=== PATIENT | male | born 1955 | race Caucasian/White ===

== ENCOUNTER → 2016-08-29 | Outpatient (CLI) | payer MEDICARE, OTHER ==
[~2016-08-29] MED LIST: AMANTADINE HCL100 M1 PO; ANAPROX DS550 MG PO; ATENOLOL25 MG PO; BREO ELLIPTA 11 EACH IH; CARBIDOPA/LEVOD1 TA1 PO; CLARITIN10 MG PO; COLACE100 MG PO; DAILY MULTIPLE1 TA6 PO; ESCITALOPRAM OX20 MG PO; GABAPENTIN TAB600 MG PO; HYDR12.5C PO; LISINOPRIL/HCTZ1 TA3 PO; LISINOPRIL20 MG PO; OLANZAPINE5 MG PO; OMEPRAZOLE MAGN20 MG PO; ONCE-DAILY WEL300 MG PO; PROAIR RESPICL90 MCG INH; SYMBICORT1 AE1 INH; VICODIN 5/500 505 MG PO; ZYPREXA5 M1 PO
[2016-08-29 08:40] LABS: BASO % 0.4 % (0.0-1.0); EOS # 0.3 10*3/uL (0.0-0.4); EOS % 5.6 % (1.0-4.0); HEMATOCRIT 38.8 % (42.0-52.0); HEMOGLOBIN 12.3 g/dl (14.0-18.0); LYMPH # 1.2 10*3/uL (1.3-4.4); LYMPH % 24.2 % (27.0-41.0); MEAN CELL VOLUME 95.8 fl (80.0-94.0); MEAN CORPUSCULAR HGB 30.4 pg (27.0-31.0); MEAN CORPUSCULAR HGB CONC 31.7 g/dl (33.0-37.0); MEAN PLATELET VOLUME 11.3 fl (9.6-12.3); MONO # 0.6 10*3/uL (0.1-1.0); NEUT # 2.9 10*3/uL (2.3-7.9); NEUT % 58.2 % (47.0-73.0); PLATELET COUNT AUTOMATED 168 10*3/uL (130-400); RED BLOOD COUNT 4.05 10*6/uL (4.50-5.90); RED CELL DISTRI WIDTH 13.9 % (0-14.5)
[2016-08-29 09:20] LABS: ALBUMIN 3.7 gm/dl (3.1-4.5); BILIRUBIN, TOTAL 0.3 mg/dl (0.2-1.0); POTASSIUM 4.1 mmol/L (3.5-5.1); TOTAL PROTEIN 6.9 gm/dL (6.4-8.2)
[2016-08-29 09:39] LABS: HEMOGLOBIN A1c 5.8 % (4.8-5.6)
[2016-08-29 10:24] LABS: FOLIC ACID 21.89 ng/mL (>5.38)
[2016-08-30 06:12] LABS: TOTAL PROTEIN, SERUM 6.3 g/dL (6.0-8.5)
[2016-08-30 15:10] LABS: A/G RATIO 1.6 (0.7-1.7); ALBUMIN 3.9 g/dL (2.9-4.4); ALPHA-1-GLOBULIN 0.2 g/dL (0.0-0.4); BETA GLOBULIN 0.8 g/dL (0.7-1.3); GAMMA GLOBULIN 0.7 g/dL (0.4-1.8); GLOBULIN, TOTAL 2.4 g/dL (2.2-3.9); M-SPIKE Not Observed g/dL (Not Observed)
== END | disposition home or self-care (01) ==
LOC: LAB 08:00
PROVIDERS: Psychiatry & Neurology Neurology
DX: R20.9 Unspecified disturbances of skin sensation (principal); Z79.899 Other long term (current) drug therapy

== ENCOUNTER → 2017-01-21 | Day surgery (SDC) | payer MEDICARE, OTHER ==
[~2017-01-21] VITALS: Ht 182.8 cm; Wt 149.7 kg
[~2017-01-21] MED LIST changes: +FLOMAX0.4 MG PO
[2017-01-21 07:50] VITALS: BP 151/92
[2017-01-21 09:02] VITALS: BP 118/64
[2017-01-21 09:17] VITALS: BP 165/68
[2017-01-21 09:32] VITALS: BP 164/54
== END | disposition home or self-care (01) ==
LOC: SDC 01-18 09:30
DX: Z12.11 Encounter for screening for malignant neoplasm of colon (principal); K64.8 Other hemorrhoids; K57.30 Diverticulosis of large intestine without perforation or abscess without bleeding; K63.89 Other specified diseases of intestine; I10 Essential (primary) hypertension; E78.00 Pure hypercholesterolemia, unspecified; G20 Parkinson's disease; R26.81 Unsteadiness on feet; N17.9 Acute kidney failure, unspecified; M62.82 Rhabdomyolysis; E66.9 Obesity, unspecified; I25.2 Old myocardial infarction; F32.9 Major depressive disorder, single episode, unspecified; G47.30 Sleep apnea, unspecified; K21.9 Gastro-esophageal reflux disease without esophagitis; Z96.643 Presence of artificial hip joint, bilateral; Z87.891 Personal history of nicotine dependence; Z79.899 Other long term (current) drug therapy; Z88.8 Allergy status to other drugs, medicaments and biological substances; Z82.49 Family history of ischemic heart disease and other diseases of the circulatory system; Z83.3 Family history of diabetes mellitus; Z96.0 Presence of urogenital implants; Z98.890 Other specified postprocedural states
CPT/HCPCS: 00810; G0121

== ENCOUNTER 2017-04-21 03:47 | Emergency (ER) | payer MEDICARE, OTHER ==
[2017-04-21] VITALS (7 sets, daily range): BP systolic 107–141; BP diastolic 53–83
[~2017-04-21] VITALS: Ht 182.8 cm; Wt 149.7 kg
--- NOTE | ~2017-04-21 | EKG ---
[place], [place] ELECTROCARDIOGRAM REPORT NAME: STEPHEN MORILLO UNIT #: [id number] ROOM: DOCTOR: ADALI LEIGH,FRANCE BIRTHDATE: [birth year] DOS: 04/21/2017 TIME: 0440 hours. IMPRESSION: 1. Sinus rhythm. 2. Nonspecific intraventricular conduction delay. 3. Normal QT interval. 4. No ischemic changes. FRANCE BRO MD CM:EKGRPT:ELECTROCARDIOGRAM REPORT [id number] FRANCE BRO MD
[2017-04-21 04:45] LABS: BASO % 0.3 % (0.0-1.0); EOS # 0.2 10*3/uL (0.0-0.4); EOS % 1.5 % (1.0-4.0); HEMATOCRIT 36.9 % (42.0-52.0); HEMOGLOBIN 11.7 g/dl (14.0-18.0); LYMPH # 1.5 10*3/uL (1.3-4.4); LYMPH % 13.6 % (27.0-41.0); MEAN CELL VOLUME 97.1 fl (80.0-94.0); MEAN CORPUSCULAR HGB 30.8 pg (27.0-31.0); MEAN CORPUSCULAR HGB CONC 31.7 g/dl (33.0-37.0); MEAN PLATELET VOLUME 11.3 fl (9.6-12.3); MONO # 1.4 10*3/uL (0.1-1.0); MONO % 12.4 % (3.0-9.0); NEUT # 7.9 10*3/uL (2.3-7.9); NEUT % 71.7 % (47.0-73.0); PLATELET COUNT AUTOMATED 158 10*3/uL (130-400); RED CELL DISTRI WIDTH 13.5 % (0-14.5)
[2017-04-21 04:55] LABS: ACT PARTIAL THROMBO TIME 25.1 SECONDS (20.8-31.5)
[2017-04-21 05:02] LABS: ALBUMIN 3.9 gm/dl (3.1-4.5); ALKALINE PHOSPHATASE 86 U/L (45-117); BUN 92 mg/dl (7-24); CHLORIDE 107 mmol/L (98-107); CREATININE 6.22 mg/dL (0.70-1.30); POTASSIUM 5.8 mmol/L (3.5-5.1); SGOT/AST 26 IU/L (3-35); SGPT/ALT 12 U/L (12-78); SODIUM 139 mmol/L (136-145); TOTAL PROTEIN 6.9 gm/dL (6.4-8.2)
[2017-04-21 05:08] LABS: TROPONIN I < 0.015 ng/ml (<0.045)
--- NOTE | 2017-04-21 06:35 | NUR ---
CAIO COVARRUBIAS CONTACTED THIS FACILITY TO ADVISE PT WILL BE GOING TO [address]. CONTACT NUMBER [phone]
--- NOTE | 2017-04-21 06:52 | NUR ---
REPORT GIVEN TO BRITT CONNELL [facility].
--- NOTE | 2017-04-21 06:53 | NUR ---
REGIS [place] CELL [phone] HOME PHONE [phone]
[2017-04-21 07:15] LABS: ABG HCO3 18.8 mmol/l (22-26); ABG O2 SATURATION 98.6 % (95-97); ARTERIAL BLOOD GAS PCO2 50.8 mmHg (35-45)
[2017-04-21 07:22] LABS: ABG BASE EXCESS -9.2 mmol/L (-2.0-2.0)
[2017-04-21 07:23] LABS: ARTERIAL BLOOD GAS PH 7.192 (7.35-7.45)
--- NOTE | 2017-04-21 07:24 | NUR ---
CRITICAL LAB RECEIVED. DR BERRY NOTIFIED. CARYL SALES NOTIFIED.
--- NOTE | 2017-04-21 07:26 | NUR ---
REPORT FROM Romie SUAREZ RN. PATIENT IN ROOM AT THIS TIME IN NO DISTRESS ON BI-PAP. SETTINGS 11/12 BACKUP 12 100%. RESPIRATORY CONTACTED FOR TITRATION OF O2 AFTER BLOOD GAS RESULTS.
--- NOTE | 2017-04-21 08:05 | NUR ---
OCL SPLINT PLACED LEFT ANKLE SUGAR TONG. PULSES/MOTOR/SENSORY INTACT POST PROCEEDURE BY DR. NICHOLS.
[2017-04-21 08:21] LABS: BILIRUBIN 2+ (NEGATIVE); BLOOD TRACE-INTACT (NEGATIVE); CLARITY SL CLOUDY (CLEAR); COLOR YELLOW (YELLOW); GLUCOSE NEGATIVE (NEGATIVE); KETONE TRACE (NEGATIVE); LEUKO ESTERASE 1+ (NEGATIVE); NITRITE POSITIVE (NEGATIVE); SPECIFIC GRAVITY 1.025 (1.005-1.030); UROBILINOGEN 0.2 E.U./dl (0.2-1.0)
--- NOTE | 2017-04-21 08:25 | NUR ---
PATIENT AND PATIENTS ADVISE THAT HE DOES NOT WANT INTUBATED. THE PATIENT IS ORIENTED TO PERSON, PLACE, AND GENERAL TIME.
[2017-04-21 08:28] LABS: BACTERIA 3+; WBC 21-30 wbc/hpf (0-5)
--- NOTE | 2017-04-21 08:46 | NUR ---
RESPIRATORY CONTACT IN REGARD TO BIPAP SETTING CHANGES. DR. NICHOLS AT THIS TIME CHANGES SETTINGS PER DIRECTION/REQUEST OF DR. RICO AT [facility]. AWAITING [facility] BED. CONTACTED [facility] FOR TRANSPORT. SETTINGS CHANGED TO 20/10 RATE 20, 40%
--- NOTE | 2017-04-21 09:00 | NUR ---
SPOKE WITH BIRD FROM [facility]. ETA 1 HOUR. TO BE TRANSFERRED TO [facility] ICU BED [id number].
--- NOTE | 2017-04-21 09:20 | NUR ---
PATIENT ADJUSTED IN BED/TURNED ONTO RIGHT SIDE PER REQUEST. GIVEN SIP OF WATER.
[2017-04-21 09:21] LABS: CREATININE 5.52 mg/dL (0.70-1.30); POTASSIUM 5.7 mmol/L (3.5-5.1)
--- NOTE | 2017-04-21 10:25 | NUR ---
Transfer Out, from the Emergency Department - Stable This patient, STEPHEN MORILLO, 61, 53, [id number], [id number], was examined by the Emergency Department physician, Dr. SIMONE LEIGH,RIKI and efforts were made to stabilize the patient. The patient's condition is stable. The reason for transfer is need higher level of care . The Emergency physician has made the decision to transfer the patient out. Refer to the ED physician's dictation for the family/back-up physician notified. The attending physician has spoken to the accepting physician at the receiving facility, DR. RICO . Refer to the ED physician's dictation. The receiving facility has space and qualified personnel to care for the patient, and has agreed to accept the patient. Proper equipment and trained personnel have been arranged. The mode of transport is ground. The agency is OTHER - SEE PATIENT NOTES. The Emergency physician has spoken to the transport staff re: patient's condition and needs during transport. Copies of the medical record have been forwarded to the receiving facility, including: - Emergency Department record: - name, address, hospital number, age, next of kin - presenting problem - history of injury, past medical history - treatment, medications & route, fluid type & volume - lab and xray findings, films - physical findings - vitals signs -- prehospital, emergency, pre-transfer - preliminary diagnosis - status/condition - emergency medical services record - consent for transfer - authorization for record release - name of any involed physicians -- responsive or not - name and address of referring physician - name of contact physician at receiving facility - name of accepting physician at receiving facility Nursing report has been given to [facility] IN [facility]U . Valuables include CLOTHING. and were given to . MARQUIS PALOMO
== END 2017-04-21 10:28 | disposition short-term general hospital (02) ==
LOC: ED 03:47 → EDHOLD 05:15 → ED 05:15 → EDHOLD 05:21 → ICCU 05:21 → ED 10:28
PROVIDERS: Emergency Medicine; Student in an Organized Health Care Education/Training Program
DX: S82.832A Other fracture of upper and lower end of left fibula, initial encounter for closed fracture (principal); I10 Essential (primary) hypertension; K21.9 Gastro-esophageal reflux disease without esophagitis; I25.2 Old myocardial infarction; G20 Parkinson's disease; Z68.41 Body mass index [BMI] 40.0-44.9, adult; G47.30 Sleep apnea, unspecified; N17.9 Acute kidney failure, unspecified; F10.10 Alcohol abuse, uncomplicated; E87.5 Hyperkalemia; N17.0 Acute kidney failure with tubular necrosis; J44.1 Chronic obstructive pulmonary disease with (acute) exacerbation; J96.90 Respiratory failure, unspecified, unspecified whether with hypoxia or hypercapnia; F32.9 Major depressive disorder, single episode, unspecified; Z88.8 Allergy status to other drugs, medicaments and biological substances; Z79.899 Other long term (current) drug therapy; W18.39XA Other fall on same level, initial encounter; Y93.89 Activity, other specified; Y92.002 Bathroom of unspecified non-institutional (private) residence as the place of occurrence of the external cause; Y99.8 Other external cause status

== ENCOUNTER 2017-08-09 14:00 | Inpatient (IN) | payer MEDICARE, OTHER ==
[~2017-08-09] VITALS: Ht 182.8 cm; Wt 138.4 kg
[2017-08-09 14:18] VITALS: BP 117/66
[2017-08-09 15:21] LABS: BASO % 0.6 % (0.0-1.0); EOS # 0.2 10*3/uL (0.0-0.4); EOS % 3.6 % (1.0-4.0); HEMATOCRIT 42.5 % (42.0-52.0); HEMOGLOBIN 13.2 g/dl (14.0-18.0); LYMPH # 1.6 10*3/uL (1.3-4.4); LYMPH % 26.2 % (27.0-41.0); MEAN CELL VOLUME 91.6 fl (80.0-94.0); MEAN CORPUSCULAR HGB 28.4 pg (27.0-31.0); MEAN CORPUSCULAR HGB CONC 31.1 g/dl (33.0-37.0); MONO # 0.8 10*3/uL (0.1-1.0); MONO % 13.3 % (3.0-9.0); NEUT # 3.5 10*3/uL (2.3-7.9); PLATELET COUNT AUTOMATED 176 10*3/uL (130-400); RED BLOOD COUNT 4.64 10*6/uL (4.50-5.90); RED CELL DISTRI WIDTH 14.6 % (0-14.5); WHITE BLOOD COUNT 6.2 10*3/uL (4.8-10.8)
[2017-08-09 15:35] LABS: ACT PARTIAL THROMBO TIME 26.3 SECONDS (20.8-31.5)
[2017-08-09 15:39] LABS: ALBUMIN 3.7 gm/dl (3.1-4.5); ALKALINE PHOSPHATASE 71 U/L (45-117); BUN 12 mg/dl (7-24); CHLORIDE 108 mmol/L (98-107); LIPASE 103 U/L (73-393); POTASSIUM 3.7 mmol/L (3.5-5.1); SGOT/AST 14 IU/L (3-35); SGPT/ALT 12 U/L (12-78); SODIUM 143 mmol/L (136-145); TOTAL PROTEIN 6.9 gm/dL (6.4-8.2)
[2017-08-09 15:44] LABS: TROPONIN I < 0.015 ng/ml (<0.045)
[2017-08-09 16:25] VITALS: BP 117/66
[2017-08-09 16:41] LABS: BILIRUBIN 2+ (NEGATIVE); BLOOD NEGATIVE (NEGATIVE); CLARITY CLEAR (CLEAR); COLOR YELLOW (YELLOW); GLUCOSE NEGATIVE (NEGATIVE); KETONE NEGATIVE (NEGATIVE); LEUKO ESTERASE 1+ (NEGATIVE); NITRITE POSITIVE (NEGATIVE); UROBILINOGEN 0.2 E.U./dl (0.2-1.0)
[2017-08-09 16:50] LABS: URINE AMPHETAMINES < 1000 (1000ng/ml); URINE BARBITURATES < 200 (200ng/ml); URINE BENZODIAZEPINES < 200 (200ng/ml); URINE CANNABINOIDS (THC) < 50 (50ng/ml); URINE COCAINE < 300 (300ng/ml); URINE METHADONE < 300 (300ng/ml); URINE OPIATES < 300 (300ng/ml)
[2017-08-09 16:53] LABS: BACTERIA 2+; EPITHELIAL CELLS 15-20; WBC TNTC wbc/hpf (0-5)
[2017-08-09 16:54] LABS: URINE PHENCYCLIDINE < 25 (25ng/ml)
[2017-08-09 17:23] VITALS: BP 117/66
[2017-08-09 17:53] VITALS: BP 133/67
[2017-08-09 19:21] LABS: ABG BASE EXCESS 1.7 mmol/L (-2.0-2.0); ABG HCO3 25.9 mmol/l (22-26); ABG O2 SATURATION 93.8 % (95-97); ARTERIAL BLOOD GAS PCO2 40.1 mmHg (35-45); ARTERIAL BLOOD GAS PH 7.423 (7.35-7.45); ARTERIAL BLOOD GAS PO2 68.8 mmHg (80-90)
[2017-08-09] MEDS ORDERED: ELIQUIS5 M1 PO (19:36)
[2017-08-09] MEDS ORDERED: LIPITOR20 MG PO (19:37)
[2017-08-09] MEDS ORDERED: WELLBUTRIN XL300 MG PO (19:38)
[2017-08-09] MEDS ORDERED: SINEMET 25-1001 EACH PO (19:39)
[2017-08-09] MEDS ORDERED: ZYRTEC10 MG PO (19:39)
[2017-08-09] MEDS ORDERED: GABAPENTIN TAB600 MG PO (19:40)
[2017-08-09] MEDS ORDERED: APRESOLINE25 MG PO (19:41)
[2017-08-09] MEDS ORDERED: DUONEB 3 MG/3 ML3 M1 INH (19:41)
[2017-08-09] MEDS ORDERED: ZOFRAN4 MG PO (19:43)
[2017-08-09] MEDS ORDERED: PERCOCET 5-3251 EACH PO (19:44)
[2017-08-09] MEDS ORDERED: B-121000 MC1 PO (19:45)
[2017-08-09 20:00] VITALS: BP 128/72
[2017-08-10] VITALS: BP 160/65
[2017-08-10 05:45] LABS: BASO # 0.1 10*3/uL (0.0-0.1); BASO % 0.9 % (0.0-1.0); EOS # 0.3 10*3/uL (0.0-0.4); EOS % 4.8 % (1.0-4.0); HEMATOCRIT 39.4 % (42.0-52.0); HEMOGLOBIN 12.2 g/dl (14.0-18.0); LYMPH # 1.6 10*3/uL (1.3-4.4); LYMPH % 27.1 % (27.0-41.0); MEAN CELL VOLUME 91.4 fl (80.0-94.0); MEAN CORPUSCULAR HGB 28.3 pg (27.0-31.0); MEAN PLATELET VOLUME 10.9 fl (9.6-12.3); MONO # 0.7 10*3/uL (0.1-1.0); MONO % 11.7 % (3.0-9.0); NEUT # 3.2 10*3/uL (2.3-7.9); NEUT % 55.2 % (47.0-73.0); PLATELET COUNT AUTOMATED 156 10*3/uL (130-400); RED BLOOD COUNT 4.31 10*6/uL (4.50-5.90); RED CELL DISTRI WIDTH 14.4 % (0-14.5); WHITE BLOOD COUNT 5.8 10*3/uL (4.8-10.8)
[2017-08-10 06:10] LABS: BUN 10 mg/dl (7-24); CHLORIDE 112 mmol/L (98-107); CHOLESTEROL 107 mg/dL (<200); CREATININE 1.02 mg/dL (0.70-1.30); HDL CHOLESTEROL 24 mg/dl (40-60); LDL CHOLESTEROL 48 mg/dL (9-159); PHOSPHOROUS 3.5 mg/dL (2.5-4.9); POTASSIUM 3.6 mmol/L (3.5-5.1); SODIUM 147 mmol/L (136-145); TRIGLYCERIDES 173 mg/dl (<150); VLDL CHOLESTEROL 35 mg/dL (6-40)
[2017-08-10 06:17] LABS: THYROID STIM HORMONE (HS) 0.412 uIU/ml (0.358-4.75)
[2017-08-10 08:00] VITALS: BP 158/72
[2017-08-10] MEDS ORDERED: WELLBUTRIN XL300 MG PO (09:35)
[2017-08-10 12:00] VITALS: BP 147/80
[2017-08-10 16:00] VITALS: BP 158/70
[2017-08-10 20:00] VITALS: BP 146/60
[2017-08-11] VITALS: BP 140/64
[2017-08-11 08:00] VITALS: BP 140/64
[2017-08-11] MEDS ORDERED: KEFLEX500 M1 PO (10:44)
[2017-08-11] MEDS ORDERED: VITAMIN D-32000 UNI1 PO (10:44)
== END 2017-08-11 12:24 | disposition home or self-care (01) | DRG 871 ==
LOC: ED 14:00 → EDHOLD 17:07 → 4E 17:14
PROVIDERS: Physician Assistant; Student in an Organized Health Care Education/Training Program
DX: A41.9 Sepsis, unspecified organism (principal); G93.41 Metabolic encephalopathy; I82.411 Acute embolism and thrombosis of right femoral vein; E87.8 Other disorders of electrolyte and fluid balance, not elsewhere classified; E87.0 Hyperosmolality and hypernatremia; N39.0 Urinary tract infection, site not specified; Z68.41 Body mass index [BMI] 40.0-44.9, adult; I82.431 Acute embolism and thrombosis of right popliteal vein; I82.491 Acute embolism and thrombosis of other specified deep vein of right lower extremity; Z79.899 Other long term (current) drug therapy; G20 Parkinson's disease; F32.9 Major depressive disorder, single episode, unspecified; Z96.643 Presence of artificial hip joint, bilateral; K57.90 Diverticulosis of intestine, part unspecified, without perforation or abscess without bleeding; I10 Essential (primary) hypertension; K21.9 Gastro-esophageal reflux disease without esophagitis; M19.90 Unspecified osteoarthritis, unspecified site; E66.9 Obesity, unspecified; D72.810 Lymphocytopenia; E83.41 Hypermagnesemia; G47.30 Sleep apnea, unspecified; Z72.89 Other problems related to lifestyle; Z87.891 Personal history of nicotine dependence; Z88.9 Allergy status to unspecified drugs, medicaments and biological substances; I25.2 Old myocardial infarction; Z82.49 Family history of ischemic heart disease and other diseases of the circulatory system; Z83.3 Family history of diabetes mellitus; Z88.2 Allergy status to sulfonamides

== ENCOUNTER → 2017-09-24 | Outpatient (CLI) | payer MEDICARE, OTHER ==
[~2017-09-24] MED LIST changes: +APRESOLINE25 MG PO; +B-121000 MC1 PO; +DUONEB 3 MG/3 ML3 M1 INH; +ELIQUIS5 M1 PO; +KEFLEX500 M1 PO; +LIPITOR20 MG PO; +PERCOCET 5-3251 EACH PO; +SINEMET 25-1001 EACH PO; +VITAMIN D-32000 UNI1 PO; +WELLBUTRIN XL300 MG PO; +ZOFRAN4 MG PO; +ZYRTEC10 MG PO
== END | disposition home or self-care (01) ==
LOC: RAD 11:53
DX: M17.0 Bilateral primary osteoarthritis of knee (principal); W19.XXXA Unspecified fall, initial encounter; Y93.89 Activity, other specified; Y92.89 Other specified places as the place of occurrence of the external cause; Y99.8 Other external cause status

== ENCOUNTER → 2017-11-05 | Outpatient (CLI) | payer MEDICARE, OTHER | END | disposition home or self-care (01) | LOC: US 06:26 | DX: I82.431 Acute embolism and thrombosis of right popliteal vein (principal); R19.03 Right lower quadrant abdominal swelling, mass and lump; R06.02 Shortness of breath; R19.04 Left lower quadrant abdominal swelling, mass and lump ==

== ENCOUNTER → 2017-12-06 | Outpatient (CLI) | payer MEDICARE, OTHER | END | disposition home or self-care (01) | LOC: CARD 12-05 08:00 | DX: Z01.818 Encounter for other preprocedural examination (principal); R06.2 Wheezing; R06.02 Shortness of breath; G47.33 Obstructive sleep apnea (adult) (pediatric) ==

== ENCOUNTER 2018-08-13 22:27 | Inpatient (IN) | payer MEDICARE, OTHER ==
[~2018-08-13] VITALS: Ht 182.8 cm; Wt 151.0 kg
--- NOTE | ~2018-08-13 | EKG ---
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
[~2018-08-13 22:27] MED LIST changes: -LIPITOR20 MG PO; +ZOCOR40 MG PO
[2018-08-13 22:31] VITALS: BP 108/41
[2018-08-13 23:07] LABS: HEMATOCRIT 47.9 % (42.0-52.0); MEAN CELL VOLUME 90.7 fl (80.0-94.0); MEAN CORPUSCULAR HGB 28.4 pg (27.0-31.0); MEAN CORPUSCULAR HGB CONC 31.3 g/dl (33.0-37.0); MEAN PLATELET VOLUME 11.5 fl (9.6-12.3); PLATELET COUNT AUTOMATED 207 10*3/uL (130-400); RED BLOOD COUNT 5.28 10*6/uL (4.50-5.90); RED CELL DISTRI WIDTH 15.1 % (0-14.5); WHITE BLOOD COUNT 20.7 10*3/uL (4.8-10.8)
[2018-08-13 23:24] LABS: ALBUMIN 3.6 gm/dl (3.1-4.5); CREATININE 2.1 mg/dL (0.70-1.30); POTASSIUM 4.3 mmol/L (3.5-5.1); TOTAL PROTEIN 7.6 gm/dL (6.4-8.2)
[2018-08-13 23:40] LABS: PLATELET SUFFICIENCY NORMAL (NORMAL); TOTAL CELLS COUNTED 100 #CELLS
--- NOTE | 2018-08-13 23:40 | NUR ---
PATIENT INCONTINENT OF STOOL AND URINE. SHEETS CHANGED, PATIENT WASHED, INCONTINENCE PAD PLACED. PATIENT TOLERATED WELL. BED IN LOW POSITION, PATIENT INSTRUCTED TO USE CALL LIGHT FOR ASSISTANCE, SIDE RAILS UPX2, AT BEDSIDE.
--- NOTE | 2018-08-14 | NUR ---
Time: A 63 year old M admitted to 5E under services of DIAMOND WHEELER DO. Pt. arrived via bed from ER. Chief complaint: INCONTINENCE. CYNTHIA CLAYTON
[2018-08-14 00:35] VITALS: BP 112/72
[2018-08-14 00:48] LABS: BILIRUBIN 1+ (NEGATIVE); BLOOD 1+ (NEGATIVE); CLARITY CLOUDY (CLEAR); COLOR YELLOW (YELLOW); GLUCOSE NEGATIVE (NEGATIVE); KETONE TRACE (NEGATIVE); LEUKO ESTERASE 2+ (NEGATIVE); NITRITE NEGATIVE (NEGATIVE); PH 5.5 (5.0-9.0); SPECIFIC GRAVITY >= 1.030 (1.005-1.030)
[2018-08-14 00:56] LABS: BACTERIA 1+; RBC 16-20 rbc/hpf (0-2); WBC TNTC wbc/hpf (0-5)
[2018-08-14 01:00] VITALS: BP 123/62
--- NOTE | 2018-08-14 01:38 | NUR ---
[facility] CALLED RECCOMENDING PT TO RECIEVE 40MG LOVENOX INSTEAD OF THE ORDERED 30. REFUGIO BOWERS DR.
--- NOTE | 2018-08-14 01:38 | NUR ---
UNABLE TO COMPLETE MEDRX AT THIS TIME DUE LIST NOT BEING WITH PT OR FAMILY, AND PT OR FAMILY UNABLE TO REMEBER ALL MEDS AT THIS TIME. FAMILY STATES LIST WILL BE BROUGHT IN THE AM. WILL CONTINUE TO MONITOR PT
--- NOTE | 2018-08-14 02:00 | NUR ---
DISCUSSED MEDRX, PHARMACY DOSE OF LOVENOX, CODE STATUS. AND BLADDER SCANNING WITH DR. BELL. ORDERS ARE TO BLADDER SCAN PT ONCE. WILL ATTEMPT TO GET URINE SPECIMEN NEEDED. WILL CONTINUE TO MONITOR PT.
[2018-08-14 06:31] LABS: HEMATOCRIT 44.4 % (42.0-52.0); HEMOGLOBIN 13.8 g/dl (14.0-18.0); MEAN CORPUSCULAR HGB 28.3 pg (27.0-31.0); MEAN CORPUSCULAR HGB CONC 31.1 g/dl (33.0-37.0); MEAN PLATELET VOLUME 11.4 fl (9.6-12.3); PLATELET COUNT AUTOMATED 181 10*3/uL (130-400); RED BLOOD COUNT 4.88 10*6/uL (4.50-5.90); RED CELL DISTRI WIDTH 15.1 % (0-14.5); WHITE BLOOD COUNT 18.6 10*3/uL (4.8-10.8)
[2018-08-14 06:40] LABS: CREATININE 1.76 mg/dL (0.70-1.30); PHOSPHOROUS 3.2 mg/dL (2.5-4.9); POTASSIUM 4.1 mmol/L (3.5-5.1)
[2018-08-14 07:49] LABS: PLATELET SUFFICIENCY NORMAL (NORMAL); TOTAL CELLS COUNTED 100 #CELLS
[2018-08-14 08:00] VITALS: BP 119/61
--- NOTE | 2018-08-14 08:51 | NUR ---
STEPHEN MORILLO [id number] Please refer to the physician's history and physical for past medical history, comorbid conditions, and allergies. Diagnosis: ACUTE RENAL FAILURE Felice Score: , WOUND DESCRIPTIONS: Patient has intact scab areas located to right lower extremity. No drainage at time of assessment to right lower extremity. No redness surrounding are to right lower extremity. Patient has red blanchable area located to right hip a time of assessment patient stated these areas were from his fall in the shower at home. Surface the patient is resting on: Position Pro SKIN PREVENTION RECOMMENDATION: 1. Pressure redistribution support surface as appropriate 2. Elevate heels 3. Remove boots/TEDS every shift and reapply 4. Head of bed 30 degrees as tolerated 5. Assess nutrition and hydration 6. Manage moisture 7. Avoid the use of containment devices while in bed 8. Use absorptive products on surfaces limit layers of linens on bed 9. Turn and reposition every 1-2 hours in bed and every 1 hour in chair as tolerated 10. Weight shifts every 15 minutes while up in chair 11. Offloading with pillows or device to keep heels elevated off bed 12. Monitor skin at least every shift 13. Inspect under medical devices twice a day WOUND TREATMENT RECOMMENDATIONS: Cleanse ble's with soap and water pat area dry then apply aqauphor daily.
--- NOTE | 2018-08-14 09:28 | NUR ---
Patient is eating well and albumin is currently normal at 3.6. No PO supplement or nutriitonal intervention needed at this time. Will monitor. Dionna Rae U Dietetic Student
[2018-08-14] MEDS ORDERED: LYRICA100 M1 PO (09:40)
[2018-08-14] MEDS ORDERED: IRON325 M3 PO (09:42)
[2018-08-14] MEDS ORDERED: ZESTRIL20 MG PO (09:44)
[2018-08-14] MEDS ORDERED: PROPRANOLOL HCL60 M1 PO (09:45)
[2018-08-14] MEDS ORDERED: LODINE XL 400M400 MG PO (09:48)
[2018-08-14] MEDS ORDERED: LASIX20 MG PO (09:49)
[2018-08-14] MEDS ORDERED: KLOR-CON 1010 ME1 PO (09:50)
[2018-08-14] MEDS ORDERED: COLACE100 MG PO (09:52)
[2018-08-14] MEDS ORDERED: VALIUM5 MG PO (09:55)
[2018-08-14] MEDS ORDERED: COMTAN200 MG PO (09:55)
--- NOTE | 2018-08-14 09:59 | NUR ---
Med rec updated from list provided from pt . List placed in pt chart.
[2018-08-14 12:00] VITALS: BP 115/55
--- NOTE | 2018-08-14 13:23 | NUR ---
Patient pleasantly declined OT evaluation this date as he was very tired and was having difficulty breathing in supine. OTR will attempt at a later date. Milagros Bazan OTR/Zulma
--- NOTE | 2018-08-14 13:40 | NUR ---
Spoke with pt regarding comtan not available here and to bring in from home per pharmacy. She states she will bring it down.
--- NOTE | 2018-08-14 15:12 | NUR ---
PHYSICAL THERAPY Patient reqeusts no PT this date. Patient repots he is too ill at this time. Will attempt at a later date. Thank you for this referral. Belen Lindsay,PT
[2018-08-14 16:00] VITALS: BP 123/48
[2018-08-14 20:00] VITALS: BP 131/53
[2018-08-15] VITALS: BP 112/59
[2018-08-15 07:03] LABS: BASO % 0.4 % (0.0-1.0); EOS # 0.3 10*3/uL (0.0-0.4); HEMATOCRIT 43.8 % (42.0-52.0); HEMOGLOBIN 13.6 g/dl (14.0-18.0); LYMPH # 0.8 10*3/uL (1.3-4.4); LYMPH % 8.4 % (27.0-41.0); MEAN CORPUSCULAR HGB 28.6 pg (27.0-31.0); MEAN CORPUSCULAR HGB CONC 31.1 g/dl (33.0-37.0); MEAN PLATELET VOLUME 11.7 fl (9.6-12.3); MONO # 0.9 10*3/uL (0.1-1.0); NEUT # 7.1 10*3/uL (2.3-7.9); NEUT % 77.9 % (47.0-73.0); PLATELET COUNT AUTOMATED 155 10*3/uL (130-400); RED BLOOD COUNT 4.76 10*6/uL (4.50-5.90); RED CELL DISTRI WIDTH 14.8 % (0-14.5); WHITE BLOOD COUNT 9.1 10*3/uL (4.8-10.8)
[2018-08-15 07:21] LABS: BUN 23 mg/dl (7-24); CHLORIDE 110 mmol/L (98-107); POTASSIUM 3.8 mmol/L (3.5-5.1); SODIUM 140 mmol/L (136-145)
[2018-08-15 07:23] LABS: CREATININE 1.26 mg/dL (0.70-1.30)
[2018-08-15 08:00] VITALS: BP 119/57
--- NOTE | 2018-08-15 10:15 | NUR ---
PHYSICAL THERAPY Patient evaluated on 5, full evaluation to follow. Continue with PT as per plan of care with fall, MOD (a) X 1-2 acute debility precautions. Will require SNF BUT REFUSES. If home, recommend 24 hour family (A) and home health RN, PT, OT and aides. PAtient is high complexity via chart review, tests and evaluation: [id number]. Thank you for this referral. Belen Lindsay,PT
--- NOTE | 2018-08-15 11:18 | NUR ---
Steel Fabricator in to talk to patient. Patient states lives at HOME with . There are NO steps in the home. Physician: Mariam TAPIA Pharmacy: [facility] Home health services: [facility] 2 DAYS A WEEK, 4 HOURS A DAY Patient's level of ADLs: MODERATE ASSIST Patient has working utilities: YES DME: WALKER, CANE AND C PAP Follow-up physician's appointment after d/c: WILL BE MADE BY HOSPITALIST NURSE DIRECTOR ON DISCHARGE Does patient want to access PORTAL?: NO Discharge plan PT STATES HE LIVES AT HOME WITH HIS . STATES HE HAS [facility] 2X A WEEK FOR 4 HOURS EACH TIME. DENIES ANY OTHER NEEDS. STATES HE PLANS TO RETURN HOME WITH [facility]. WILL CONTINUE TO FOLLOW. STATES HE WILL HAVE A RIDE HOME. . TYRONE SMYTH
[2018-08-15 12:00] VITALS: BP 105/59
[2018-08-15 16:00] VITALS: BP 107/56
[2018-08-15 20:00] VITALS: BP 113/55
[2018-08-16] VITALS: BP 104/62
[2018-08-16 00:29] LABS: URINE CREATININE RANDOM 63.2 mg/dL
[2018-08-16 06:29] LABS: BASO % 0.6 % (0.0-1.0); EOS # 0.2 10*3/uL (0.0-0.4); EOS % 3.7 % (1.0-4.0); HEMATOCRIT 42.9 % (42.0-52.0); HEMOGLOBIN 13.1 g/dl (14.0-18.0); LYMPH # 0.8 10*3/uL (1.3-4.4); LYMPH % 15.9 % (27.0-41.0); MEAN CELL VOLUME 92.1 fl (80.0-94.0); MEAN CORPUSCULAR HGB 28.1 pg (27.0-31.0); MEAN CORPUSCULAR HGB CONC 30.5 g/dl (33.0-37.0); MEAN PLATELET VOLUME 11.8 fl (9.6-12.3); MONO # 0.7 10*3/uL (0.1-1.0); MONO % 14.7 % (3.0-9.0); NEUT # 3.1 10*3/uL (2.3-7.9); NEUT % 64.7 % (47.0-73.0); PLATELET COUNT AUTOMATED 149 10*3/uL (130-400); RED BLOOD COUNT 4.66 10*6/uL (4.50-5.90); RED CELL DISTRI WIDTH 14.9 % (0-14.5); WHITE BLOOD COUNT 4.8 10*3/uL (4.8-10.8)
[2018-08-16 06:59] LABS: BUN 19 mg/dl (7-24); CHLORIDE 111 mmol/L (98-107); CREATININE 1.22 mg/dL (0.70-1.30); POTASSIUM 3.7 mmol/L (3.5-5.1); SODIUM 142 mmol/L (136-145)
[2018-08-16 08:00] VITALS: BP 126/66
[2018-08-16 12:00] VITALS: BP 113/62
[2018-08-16 16:00] VITALS: BP 108/56
[2018-08-16 20:00] VITALS: BP 121/63
[2018-08-17] VITALS: BP 134/70
--- NOTE | 2018-08-17 02:39 | NUR ---
PATIENT VOMITTING. MEDICATED WITH IV ZOFRAN AT THIS TIME. WILL CHECK EFFECTIVENESS
--- NOTE | 2018-08-17 03:50 | NUR ---
PATIENT ASLEEP IN BED. NO SIGNS OF DISTRESS. RESPIRATIONS EASY, NONLABORED. BED IN LOWEST POSITION,CALL LIGHT WITHIN REACH. ZOFRAN EFFECTIVE. WILL CONTINUE TO MONTIOR.
[2018-08-17 06:31] LABS: BASO % 0.6 % (0.0-1.0); EOS # 0.2 10*3/uL (0.0-0.4); HEMATOCRIT 45.4 % (42.0-52.0); HEMOGLOBIN 14.1 g/dl (14.0-18.0); LYMPH # 0.9 10*3/uL (1.3-4.4); LYMPH % 18.5 % (27.0-41.0); MEAN CELL VOLUME 89.9 fl (80.0-94.0); MEAN CORPUSCULAR HGB 27.9 pg (27.0-31.0); MEAN CORPUSCULAR HGB CONC 31.1 g/dl (33.0-37.0); MEAN PLATELET VOLUME 11.9 fl (9.6-12.3); MONO # 0.8 10*3/uL (0.1-1.0); NEUT # 2.8 10*3/uL (2.3-7.9); NEUT % 59.3 % (47.0-73.0); RED BLOOD COUNT 5.05 10*6/uL (4.50-5.90); RED CELL DISTRI WIDTH 14.7 % (0-14.5); WHITE BLOOD COUNT 4.8 10*3/uL (4.8-10.8)
[2018-08-17 06:41] LABS: PLATELET COUNT AUTOMATED 187 10*3/uL (130-400)
[2018-08-17 06:55] LABS: ALBUMIN 3.1 gm/dl (3.1-4.5); ALKALINE PHOSPHATASE 70 U/L (45-117); BUN 16 mg/dl (7-24); CHLORIDE 109 mmol/L (98-107); CREATININE 1.11 mg/dL (0.70-1.30); PHOSPHOROUS 3.7 mg/dL (2.5-4.9); POTASSIUM 3.6 mmol/L (3.5-5.1); SGOT/AST 27 IU/L (3-35); SGPT/ALT 17 U/L (12-78); SODIUM 143 mmol/L (136-145); TOTAL PROTEIN 6.9 gm/dL (6.4-8.2)
[2018-08-17 08:00] VITALS: BP 120/70
--- NOTE | 2018-08-17 08:59 | NUR ---
PT SEEN AT THIS TIME. PT IN BED RESTING. PT COMPLAINS OF NAUSEA AT THIS TIME. PRN ZOFRAN GIVE. WILL MONITOR FOR EFFECTIVENESS. PT HAS NO OTHER COMPLAINTS AT THIS TIME. DENIES PAIN AND NO DISTRESS NOTED. BED IN LOWEST LOCKED POSITION AND CALL LIGHT WITHIN REACH.
--- NOTE | 2018-08-17 10:57 | NUR ---
PHYSICAL THERAPY PATIENT SEEN IN ROOM TODAY DUE TO NEW REFERRAL STATING UNABLE TO GET OUT OF BED ON 08/16/18: PATIENT WAS ABLE TO COMPLETE BED MOBILITY SUP TO SIT TODAY WITH RAILING AND MOD TO MAX OF 1. ONCE ON EDGE OF BED WAS ABLE TO SIT FOR 5 MINS WHILE PT WORKED ON CHALLENGING HIS BALALNCE TO IMPROVED TRUNK STRENGTH AND BALANCE. PATIENT THEN WAS ABLE TO STAND FROM BED WITH MIN OF 2 AND WALK 10 FT WITH FWW AND MIN OF 2 TO RECLINER. NO REPORTED DIZZINESS ONCE UP AND WAS PLACED IN RECLINER WITH CALL LIGHT AND NURSE /FAST FOOD ASSISTANT RESTAURANT MANAGER AWARE WITH LEGS ELEVATED. EDUCATED PATIENT ON CALLING FOR ASSISTANCE. THANK YOU JENNY ASHFORD PT
[2018-08-17 12:00] VITALS: BP 110/84
[2018-08-17 16:00] VITALS: BP 116/51
[2018-08-17 20:00] VITALS: BP 114/63
--- NOTE | 2018-08-17 20:56 | NUR ---
24 HR chart check completed.
--- NOTE | 2018-08-17 21:00 | NUR ---
RESTING IN BED WITH NO ACUTE DISTRESS NOTED. RESPIRATIONS EASY. LUNGS DIMINISHED. PULSE OX 95% RA. OFFERED AND EDUCATED REGARDING TEDS, DECLINED. CALL LIGHT WITHIN REACH. NO VOICED COMPLAINTS. BED ALARM MAINTAINED FOR SAFETY
--- NOTE | 2018-08-17 23:00 | NUR ---
RESTING WITH EYES CLOSED. RESPIRATIONS EASY. CALL LIGHT WITHIN REACH. NO VOICED COMPLAINTS. BED ALARM MAINTAINED FOR SAFETY
[2018-08-18] VITALS: BP 127/64
--- NOTE | 2018-08-18 00:30 | NUR ---
SLEEPING. NO DISTRESS NOTED. RESPIRATIONS EASY. VSS. CALL LIGHT WITHIN REACH. BED ALARM MAINTAINED FOR SAFETY
--- NOTE | 2018-08-18 06:00 | NUR ---
slept throughout night with no distress noted, respirations easy. call light within reach. no voiced complaints this shift
[2018-08-18 06:47] LABS: BASO % 0.5 % (0.0-1.0); EOS # 0.3 10*3/uL (0.0-0.4); EOS % 4.3 % (1.0-4.0); HEMATOCRIT 47.2 % (42.0-52.0); HEMOGLOBIN 14.7 g/dl (14.0-18.0); LYMPH # 1.5 10*3/uL (1.3-4.4); LYMPH % 23.9 % (27.0-41.0); MEAN CELL VOLUME 91.1 fl (80.0-94.0); MEAN CORPUSCULAR HGB 28.4 pg (27.0-31.0); MEAN CORPUSCULAR HGB CONC 31.1 g/dl (33.0-37.0); MONO # 0.9 10*3/uL (0.1-1.0); MONO % 14.5 % (3.0-9.0); NEUT # 3.6 10*3/uL (2.3-7.9); NEUT % 56.2 % (47.0-73.0); PLATELET COUNT AUTOMATED 197 10*3/uL (130-400); RED BLOOD COUNT 5.18 10*6/uL (4.50-5.90); RED CELL DISTRI WIDTH 14.6 % (0-14.5); WHITE BLOOD COUNT 6.4 10*3/uL (4.8-10.8)
[2018-08-18 07:00] LABS: BUN 16 mg/dl (7-24); CHLORIDE 107 mmol/L (98-107); POTASSIUM 3.3 mmol/L (3.5-5.1); SODIUM 142 mmol/L (136-145)
[2018-08-18 08:00] VITALS: BP 119/47
--- NOTE | 2018-08-18 09:15 | NUR ---
PHYSICAL THERAPY Patient seen this am 1:1 for therapy visit and was sitting up in bedside chair upon therapist arrival. Patient voices no new c/o's at this time and performed seated B LE therex, all planes, x 20 reps each to increase LE strength. Patient also completed several sit to stand transfers Min/CGA, demonstrating very slow rise, then ambulates with use of wh walker, 50'x 1, Min A, demonstrating slow, unsteady zhen secondary to R eye deficits. Patient needed v/c for improved walker safety/navigation, including LOB x 1 during 180 turn. Patient returned to bedside chair with increased fatigue and remained with call light and telephone. Patient presented without any safety alarms and refused therapist request. Will continue per POC as tolerated, total treatment time 23 minutes. Tj Streeter, ELEMENT SETTER
[2018-08-18 12:00] VITALS: BP 114/64
--- NOTE | 2018-08-18 13:29 | NUR ---
PT CONTINUES TO SAY HE WANTS TO GO HOME AND REFUSES TO GO TO A SNF. PT HAS [facility]ORT [facility]ERS AND REFUSES ANY OTHER HOME HEALTH ALSO. WILL CONTINUE TO FOLLOW.
[2018-08-18] MEDS ORDERED: FAMOTIDINE20 M1 PO (14:40)
[2018-08-18] MEDS ORDERED: CIPRO250 MG PO (14:40)
[2018-08-18] MEDS ORDERED: PROPRANOLOL HCL60 M1 PO (14:49)
--- NOTE | 2018-08-18 15:38 | NUR ---
Discharge instructions reviewed with patient/family. Patient receptive and verbalizes understanding. Follow-up care arranged. Written instructions given to patient/family. LILIAN STUART
--- NOTE | 2018-08-18 15:58 | NUR ---
OT referral received 08/16/18. Patient discharged today before OT evalaution could be completed. Thank you for the referral. Milagros Bazan OTR/lalo
--- NOTE | 2018-08-18 16:09 | NUR ---
PHYSICAL THERAPY CO-SIGN I approve of the Phyical Therapy notes written above. KARLENE SLATER PT
[2018-09-26] MEDS ORDERED: CEFADROXIL500 M1 PO (23:10)
== END 2018-08-18 15:38 | disposition home or self-care (01) | DRG 871 ==
LOC: ED 22:27 → EDHOLD 08-14 00:29 → 5E 08-14 00:29
PROVIDERS: Emergency Medicine; Family Medicine; Internal Medicine; Nurse Practitioner Family; Student in an Organized Health Care Education/Training Program; ADMIT Internal Medicine
DX: A41.9 Sepsis, unspecified organism (principal); N17.0 Acute kidney failure with tubular necrosis; N30.01 Acute cystitis with hematuria; E87.2 Acidosis; Z68.42 Body mass index [BMI] 45.0-49.9, adult; G20 Parkinson's disease; I10 Essential (primary) hypertension; R29.6 Repeated falls; R53.1 Weakness; R06.00 Dyspnea, unspecified; R00.1 Bradycardia, unspecified; R73.9 Hyperglycemia, unspecified; Z96.643 Presence of artificial hip joint, bilateral; K21.9 Gastro-esophageal reflux disease without esophagitis; E86.0 Dehydration; M19.90 Unspecified osteoarthritis, unspecified site; N40.0 Benign prostatic hyperplasia without lower urinary tract symptoms; G47.33 Obstructive sleep apnea (adult) (pediatric); B96.1 Klebsiella pneumoniae [K. pneumoniae] as the cause of diseases classified elsewhere; N20.0 Calculus of kidney; E66.01 Morbid (severe) obesity due to excess calories; E78.5 Hyperlipidemia, unspecified; F32.9 Major depressive disorder, single episode, unspecified; J44.9 Chronic obstructive pulmonary disease, unspecified; Z88.8 Allergy status to other drugs, medicaments and biological substances; Z88.2 Allergy status to sulfonamides; Z94.7 Corneal transplant status; Z87.891 Personal history of nicotine dependence; I25.2 Old myocardial infarction; Z82.49 Family history of ischemic heart disease and other diseases of the circulatory system; Z83.3 Family history of diabetes mellitus; Z86.718 Personal history of other venous thrombosis and embolism; Z79.899 Other long term (current) drug therapy

== ENCOUNTER → 2018-11-20 | Day surgery (SDC) | payer MEDICARE, OTHER ==
[~2018-11-20] MED LIST changes: +CEFADROXIL500 M1 PO; +CIPRO250 MG PO; +COMTAN200 MG PO; +FAMOTIDINE20 M1 PO; +IRON325 M3 PO; +KLOR-CON 1010 ME1 PO; +LASIX20 MG PO; +LODINE XL 400M400 MG PO; +LYRICA100 M1 PO; +PROPRANOLOL HCL60 M1 PO; +VALIUM5 MG PO; +ZESTRIL20 MG PO
--- NOTE | ~2018-11-20 | PROC NOTE ---
[place], [place] PROCEDURE NOTE NAME: STEPHEN MORILLO UNIT #: [id number] ROOM: DOCTOR: EMMANUEL ISAAC MD BIRTHDATE: [birth year] DOS: 11/20/2018 PREOPERATIVE DIAGNOSIS: Screening examination. POSTOPERATIVE DIAGNOSIS: Poor prep. Normal colonoscopy. PROCEDURE: Colonoscopy. ENDOSCOPIST: Emmanuel Isaac MD DIRECTOR OF SALES AND MARKETING: CAMERON. ANESTHESIA: MAC. INDICATIONS: This is a 63-year-old gentleman here for a screening examination. The procedure and its complications were explained to the patient in detail. Complications that were discussed included but were not limited to bleeding, colon perforation, missed lesions and prolonged pain. He agreed to proceed. DESCRIPTION OF PROCEDURE: After identifying the patient, the patient was brought to the endoscopy suite and placed in the left lateral position. After IV sedation was administered, a time-out procedure was called. A digital rectal exam was performed, which was within normal limits. An adult colonoscope was now introduced into the anal canal and advanced sequentially into the rectum, sigmoid colon, descending colon, transverse colon and ascending colon up to the cecum. Upon reaching the cecum, the scope was withdrawn. Total withdrawal time was approximately 7-1/2 minutes. The prep was found to be suboptimal in certain areas and saline was used for irrigation in order to visualize the colonic mucosa as best as I could and to suck out the fluid. In the entirety of the colon, no obvious lesions could be identified, but also it should be mentioned that the prep was suboptimal and it is possible that in the poor prep, smaller lesions could have been missed. The colonoscope was then withdrawn, and the patient was brought back to the recovery room in a stable fashion. Based on these findings, the patient is recommended to have another colonoscopy in 3-5 years or sooner if he develops any new symptoms. The findings of poor prep was informed to the patient's in the recovery room and I will see the patient in the office in the next 3 to 4 weeks. [place], [place] PROCEDURE NOTE NAME: STEPHEN MORILLO UNIT #: [id number] ROOM: DOCTOR: EMMANUEL ISAAC MD BIRTHDATE: [birth year] Emmanuel Isaac MD CM:LETICIA:PROCEDURE NOTE [id number] EMMANUEL ISAAC MD
[2018-11-20 08:05] VITALS: BP 154/78
[2018-11-20 09:05] VITALS: BP 120/56
[2018-11-20 09:20] VITALS: BP 118/55
[2018-11-20 09:33] VITALS: BP 122/59
== END | disposition home or self-care (01) ==
LOC: SDC 11-14 10:15
DX: K59.00 Constipation, unspecified (principal); E78.00 Pure hypercholesterolemia, unspecified; G47.30 Sleep apnea, unspecified; E66.9 Obesity, unspecified; F41.9 Anxiety disorder, unspecified; I25.2 Old myocardial infarction; F32.9 Major depressive disorder, single episode, unspecified; M19.90 Unspecified osteoarthritis, unspecified site; I25.10 Atherosclerotic heart disease of native coronary artery without angina pectoris; K21.9 Gastro-esophageal reflux disease without esophagitis; I12.9 Hypertensive chronic kidney disease with stage 1 through stage 4 chronic kidney disease, or unspecified chronic kidney disease; N18.9 Chronic kidney disease, unspecified; G20 Parkinson's disease; H54.61 Unqualified visual loss, right eye, normal vision left eye; Z98.890 Other specified postprocedural states; Z88.8 Allergy status to other drugs, medicaments and biological substances; Z79.899 Other long term (current) drug therapy; Z87.891 Personal history of nicotine dependence; Z96.643 Presence of artificial hip joint, bilateral; Z82.49 Family history of ischemic heart disease and other diseases of the circulatory system; Z83.3 Family history of diabetes mellitus; Z86.718 Personal history of other venous thrombosis and embolism; Z95.5 Presence of coronary angioplasty implant and graft

== ENCOUNTER → 2019-10-05 | Outpatient (CLI) | payer MEDICARE, OTHER | END | disposition home or self-care (01) | LOC: LAB 08:49 | DX: N20.0 Calculus of kidney (principal); N40.1 Benign prostatic hyperplasia with lower urinary tract symptoms; K63.89 Other specified diseases of intestine ==

== ENCOUNTER → 2019-10-14 | Outpatient (CLI) | payer MEDICARE, OTHER ==
[2019-10-14 12:37] LABS: BASO % 0.5 % (0.0-1.0); EOS # 0.3 10*3/uL (0.0-0.4); EOS % 3.3 % (1.0-4.0); HEMATOCRIT 46.5 % (42.0-52.0); LYMPH # 1.4 10*3/uL (1.3-4.4); MEAN CELL VOLUME 94.7 fl (80.0-94.0); MEAN CORPUSCULAR HGB 30.8 pg (27.0-31.0); MEAN CORPUSCULAR HGB CONC 32.5 g/dl (33.0-37.0); MEAN PLATELET VOLUME 11.8 fl (9.6-12.3); MONO # 1.3 10*3/uL (0.1-1.0); MONO % 15.5 % (3.0-9.0); NEUT # 5.3 10*3/uL (2.3-7.9); NEUT % 62.8 % (47.0-73.0); PLATELET COUNT AUTOMATED 154 10*3/uL (130-400); RED BLOOD COUNT 4.91 10*6/uL (4.50-5.90); RED CELL DISTRI WIDTH 13.5 % (0-14.5); WHITE BLOOD COUNT 8.5 10*3/uL (4.8-10.8)
[2019-10-14 12:58] LABS: ALBUMIN 3.6 gm/dl (3.1-4.5); CREATININE 1.59 mg/dL (0.70-1.30); POTASSIUM 4.1 mmol/L (3.5-5.1)
== END | disposition home or self-care (01) ==
LOC: US 10-09 08:30
PROVIDERS: Nurse Practitioner Primary Care
DX: N43.3 Hydrocele, unspecified (principal); I87.2 Venous insufficiency (chronic) (peripheral); M79.604 Pain in right leg

== ENCOUNTER → 2019-11-03 | Outpatient (CLI) | payer MEDICARE, OTHER ==
[2019-11-04 12:44] LABS: BILIRUBIN 1+ (NEGATIVE); BLOOD NEGATIVE (NEGATIVE); CLARITY CLEAR (CLEAR); COLOR YELLOW (YELLOW); GLUCOSE NEGATIVE (NEGATIVE); KETONE NEGATIVE (NEGATIVE); LEUKO ESTERASE NEGATIVE (NEGATIVE); NITRITE NEGATIVE (NEGATIVE); UROBILINOGEN 0.2 E.U./dl (0.2-1.0)
[2019-11-04 12:53] LABS: BACTERIA 2+; CALCIUM OXALATE CRYSTALS 1+; HYALINE CAST 16-20; MUCOUS 2+; YEAST 2+
== END | disposition home or self-care (01) ==
LOC: LAB 11:40
PROVIDERS: ATTEND Psychiatry & Neurology Neurology
DX: R30.0 Dysuria (principal); R29.6 Repeated falls; R41.0 Disorientation, unspecified

== ENCOUNTER 2020-01-07 08:02 | Emergency (ER) | payer MEDICARE, OTHER ==
[~2020-01-07] VITALS: Wt 142.0 kg
[~2020-01-07 08:02] MED LIST changes: +ARTANE5 M1 PO; +DOXYCYCLINE100 M3 PO; +EFFEXOR XR150 M1 PO; +INDERAL LA60 M1 PO; +LEXAPRO20 MG PO; +REMERON15 M2 PO; +REQUIP5 MG PO; +SINEMET 25-2501 EACH PO; +TOVIAZ4 MG PO; +XARE15TA PO; +XARE20MG PO
[2020-01-07 08:27] VITALS: BP 114/44
[2020-01-07 08:38] LABS: BASO % 0.6 % (0.0-1.0); EOS # 0.4 10*3/uL (0.0-0.4); EOS % 5.7 % (1.0-4.0); LYMPH # 1.5 10*3/uL (1.3-4.4); LYMPH % 23.2 % (27.0-41.0); MEAN CELL VOLUME 97.1 fl (80.0-94.0); MEAN CORPUSCULAR HGB 31.2 pg (27.0-31.0); MEAN CORPUSCULAR HGB CONC 32.1 g/dl (33.0-37.0); MEAN PLATELET VOLUME 12.2 fl (9.6-12.3); MONO # 0.9 10*3/uL (0.1-1.0); MONO % 13.5 % (3.0-9.0); NEUT # 3.7 10*3/uL (2.3-7.9); NEUT % 56.7 % (47.0-73.0); PLATELET COUNT AUTOMATED 138 10*3/uL (130-400); RED BLOOD COUNT 4.43 10*6/uL (4.50-5.90); RED CELL DISTRI WIDTH 13.2 % (0-14.5); WHITE BLOOD COUNT 6.5 10*3/uL (4.8-10.8)
[2020-01-07 08:48] LABS: ACT PARTIAL THROMBO TIME 34.1 SECONDS (20.0-32.1); INTERNATIONAL NORM RATIO 1.2 (2.0-3.5)
[2020-01-07 08:54] LABS: BILIRUBIN NEGATIVE; BLOOD NEGATIVE (NEGATIVE); CLARITY CLEAR (CLEAR); COLOR YELLOW (YELLOW); GLUCOSE NEGATIVE; KETONE NEGATIVE; LEUKO ESTERASE NEGATIVE (NEGATIVE); NITRITE NEGATIVE (NEGATIVE); SPECIFIC GRAVITY 1.015 (1.001-1.030); UROBILINOGEN 0.2 E.U./dl (0.0-1.0)
[2020-01-07 08:57] LABS: HYALINE CAST 21-30
[2020-01-07 09:21] LABS: ALBUMIN 3.7 gm/dl (3.1-4.5); ALKALINE PHOSPHATASE 78 U/L (45-117); BUN 38 mg/dl (7-24); CHLORIDE 110 mmol/L (98-107); CPK 224 U/L (39-308); CREATININE 2.01 mg/dL (0.70-1.30); POTASSIUM 4.4 mmol/L (3.5-5.1); SGOT/AST 24 IU/L (3-35); SGPT/ALT 20 U/L (12-78); SODIUM 141 mmol/L (136-145); TOTAL PROTEIN 6.9 gm/dL (6.4-8.2)
--- NOTE | 2020-01-07 09:28 | NUR ---
Received message from ED stating has brought this patient in for snf placement and has requested [facility]. Contacted Eda at [facility] and stated patient was just here 01/02/2020 through 01/05/2020 so he has met his 3 midnight stay. Faxed clincals from 01/02/2020 admission for [facility] to review. Waiting on review/acceptance. Will follow
[2020-01-07 09:32] LABS: TROPONIN I < 0.015 ng/ml (<0.045)
== END 2020-01-07 12:13 | disposition home or self-care (01) ==
LOC: ED 08:02
PROVIDERS: Emergency Medicine
DX: R53.1 Weakness (principal); R79.1 Abnormal coagulation profile

== ENCOUNTER 2020-02-01 21:17 | Emergency (ER) | payer MEDICARE, OTHER ==
[~2020-02-01] VITALS: Ht 185.4 cm; Wt 149.7 kg
[2020-02-01 21:20] VITALS: BP 110/80
[2020-02-01 22:23] LABS: BASO % 0.2 % (0.0-1.0); EOS # 0.1 10*3/uL (0.0-0.4); EOS % 0.8 % (1.0-4.0); HEMATOCRIT 38.1 % (42.0-52.0); LYMPH # 1.2 10*3/uL (1.3-4.4); LYMPH % 10.4 % (27.0-41.0); MEAN CELL VOLUME 95.5 fl (80.0-94.0); MEAN CORPUSCULAR HGB 31.1 pg (27.0-31.0); MEAN CORPUSCULAR HGB CONC 32.5 g/dl (33.0-37.0); MEAN PLATELET VOLUME 12.6 fl (9.6-12.3); MONO # 0.9 10*3/uL (0.1-1.0); MONO % 8.3 % (3.0-9.0); NEUT # 8.9 10*3/uL (2.3-7.9); NEUT % 79.9 % (47.0-73.0); PLATELET COUNT AUTOMATED 124 10*3/uL (130-400); RED BLOOD COUNT 3.99 10*6/uL (4.50-5.90); RED CELL DISTRI WIDTH 12.6 % (0-14.5); WHITE BLOOD COUNT 11.2 10*3/uL (4.8-10.8)
[2020-02-01 22:34] LABS: CREATININE 2.37 mg/dL (0.70-1.30); POTASSIUM 3.8 mmol/L (3.5-5.1)
== END 2020-02-02 03:40 ==
LOC: ED 21:17
PROVIDERS: Emergency Medicine
DX: E86.0 Dehydration (principal); N17.9 Acute kidney failure, unspecified; K21.9 Gastro-esophageal reflux disease without esophagitis; F32.9 Major depressive disorder, single episode, unspecified; Z88.8 Allergy status to other drugs, medicaments and biological substances; Z79.899 Other long term (current) drug therapy

== ENCOUNTER 2020-02-09 08:30 | Observation (INO) | payer MEDICARE, OTHER ==
[~2020-02-09] VITALS: Ht 182.8 cm; Wt 137.2 kg
[2020-02-09 08:34] VITALS: BP 90/45; BP 90/46; BP 90/50
[2020-02-09 08:47] VITALS: BP 100/59
[2020-02-09 09:13] LABS: BASO # 0.1 10*3/uL (0.0-0.1); BASO % 0.8 % (0.0-1.0); EOS # 0.4 10*3/uL (0.0-0.4); EOS % 6.3 % (1.0-4.0); HEMATOCRIT 38.9 % (42.0-52.0); LYMPH # 1.1 10*3/uL (1.3-4.4); MEAN CORPUSCULAR HGB 31.1 pg (27.0-31.0); MEAN CORPUSCULAR HGB CONC 32.4 g/dl (33.0-37.0); MONO # 0.7 10*3/uL (0.1-1.0); MONO % 11.7 % (3.0-9.0); NEUT # 3.9 10*3/uL (2.3-7.9); NEUT % 61.9 % (47.0-73.0); PLATELET COUNT AUTOMATED 155 10*3/uL (130-400); RED BLOOD COUNT 4.05 10*6/uL (4.50-5.90); RED CELL DISTRI WIDTH 12.7 % (0-14.5); WHITE BLOOD COUNT 6.3 10*3/uL (4.8-10.8)
--- NOTE | 2020-02-09 09:14 | NUR ---
PT. RESTING IN BED, IN NO DISTRESS. RR EASY AND NONLABORED. CALL LIGHT IN REACH. WILL CONT TO MONITOR.
--- NOTE | 2020-02-09 09:14 | NUR ---
BLADDER SCAN SHOWED 119ML
[2020-02-09 09:16] VITALS: BP 107/63
[2020-02-09 09:25] LABS: ACT PARTIAL THROMBO TIME 31.2 SECONDS (20.0-32.1); INTERNATIONAL NORM RATIO 1.2 (2.0-3.5)
[2020-02-09 09:29] LABS: ALBUMIN 3.3 gm/dl (3.1-4.5); ALKALINE PHOSPHATASE 78 U/L (45-117); BUN 58 mg/dl (7-24); CHLORIDE 110 mmol/L (98-107); POTASSIUM 3.9 mmol/L (3.5-5.1); SGOT/AST 15 IU/L (3-35); SGPT/ALT 10 U/L (12-78); SODIUM 142 mmol/L (136-145); TOTAL PROTEIN 6.5 gm/dL (6.4-8.2)
[2020-02-09 09:30] LABS: TROPONIN I < 0.015 ng/ml (<0.045)
--- NOTE | 2020-02-09 10:35 | NUR ---
PICTURES TAKEN OF WOUNDS.
--- NOTE | 2020-02-09 10:45 | NUR ---
GAVE REPORT TO RN AT [facility]. STATED PT. WAS BEING ADMITTED.
[2020-02-09] MEDS ORDERED: HYDROXYZINE PAM25 M1 PO (12:29)
[2020-02-09] MEDS ORDERED: COLACE100 MG PO (12:30)
[2020-02-09] MEDS ORDERED: WELLBUTRIN XL150 MG PO (12:33)
--- NOTE | 2020-02-09 12:34 | NUR ---
DR RUBALCAVA CALLED, HOME MEDICATIONS ARE UP TO DATE.
--- NOTE | 2020-02-09 15:10 | NUR ---
DR BELTRAN AWARE OF CONSULT.
[2020-02-09 16:00] VITALS: BP 111/68
--- NOTE | 2020-02-09 17:19 | NUR ---
A 64, admitted to , under the services of JW Humphrey DO with a diagnosis of TIERNEY, DEHYDRATION. Chief complaint is ABNORMAL LABS. Patient arrived via stretcher from ER. Monitor applied. Initial assessment completed. Vital signs taken and recorded. JW HUMPHREY DO notified of admission to the unit. Orders received. See assessment for past medical history, medications and allergies. Patient and/or family oriented to unit. [facility] visitation policy reviewed. Clothing/patient valuable form completed. KYRA SMYTH
[2020-02-09 18:30] LABS: BILIRUBIN Negative (Negative); BLOOD Negative (Negative); CLARITY Clear (Clear); COLOR Yellow (Yellow); GLUCOSE Negative (Negative); KETONE Negative (Negative); LEUKO ESTERASE Negative (Negative); NITRITE Negative (Negative); SPECIFIC GRAVITY 1.015 (1.001-1.030); UROBILINOGEN 0.2 E.U./dl (0.0-1.0)
[2020-02-09 18:40] LABS: EPITHELIAL CELLS 0-2
--- NOTE | 2020-02-09 19:30 | NUR ---
PT RESTING IN BED. RESPS EASY AND NON LABORED. NO S/S OF DISTRESS NOTED. VSS. WHITE BOARD UPDATED. POC DISCUSSED W PT. ALERT TO SELF. HSX PARKINSONS-SLIGHT HAND TREMORS NOTED. GARBLED SPEECH AT BASELINE. IVF INFUSING W/O INCIDENT.WILL CONTINUE TO MONITOR. BED ALARM ON. CALL LIGHT WITHIN REACH.
[2020-02-09 20:00] VITALS: BP 111/45
--- NOTE | 2020-02-09 20:04 | NUR ---
PT RIPPED IV OUT. SITE COVERED. STATES HE IS NOT BEING POKED AGAIN. WILL RE-ATTEMPT AT A LATER TIME.
--- NOTE | 2020-02-09 21:12 | NUR ---
IV started left antecubital with #22 protective cath after 1 attempts. Site prepped with Chloroprep. Sterile dressing applied. Patient tolerated procedure well. IV infusing at 80ML/H PT MEDICATED WITH RESTORIL AND VISTARIL. PT AGITATED AFTER IV START TRYING TO PULL OUT IV SITE. WILL CONTINUE TO MONITOR. RESPS EASY AND NON LABORED. VSS. SITTING UP IN BED WATCHING TV. CALL LIGHT WITHIN REACH. BED ALARM ON.
--- NOTE | 2020-02-09 23:19 | NUR ---
PT SLEEPING. RESPS EASY AND NON LABORED. NO S/S OF DISTRESS NOTED. CALL LIGHT WITHIN REACH. BED ALARM ON.
[2020-02-10] VITALS: BP 115/48
--- NOTE | 2020-02-10 03:43 | NUR ---
PT SLEEPING. RESPS EASY AND NON LABORED. NO S/S OF DISTRESS NOTED. CALL LIGHT WITHIN REACH. BED ALARM ON. WILL CONTINUE TO MONITOR.
[2020-02-10 06:51] LABS: BASO # 0.1 10*3/uL (0.0-0.1); BASO % 1.1 % (0.0-1.0); EOS # 0.4 10*3/uL (0.0-0.4); EOS % 7.5 % (1.0-4.0); HEMATOCRIT 39.6 % (42.0-52.0); LYMPH # 1.6 10*3/uL (1.3-4.4); LYMPH % 33.3 % (27.0-41.0); MEAN CELL VOLUME 97.5 fl (80.0-94.0); MEAN CORPUSCULAR HGB CONC 31.8 g/dl (33.0-37.0); MEAN PLATELET VOLUME 12.2 fl (9.6-12.3); MONO # 0.5 10*3/uL (0.1-1.0); MONO % 11.1 % (3.0-9.0); NEUT # 2.2 10*3/uL (2.3-7.9); NEUT % 45.9 % (47.0-73.0); PLATELET COUNT AUTOMATED 146 10*3/uL (130-400); RED BLOOD COUNT 4.06 10*6/uL (4.50-5.90); RED CELL DISTRI WIDTH 12.7 % (0-14.5); WHITE BLOOD COUNT 4.7 10*3/uL (4.8-10.8)
[2020-02-10 07:01] LABS: CREATININE 1.88 mg/dL (0.70-1.30); TOTAL PROTEIN 6.1 gm/dL (6.4-8.2)
[2020-02-10 08:00] VITALS: BP 112/50
--- NOTE | 2020-02-10 09:00 | NUR ---
case management visits with patient, he was sitting up in bed eating breakfast. patient was oriented to person and place. he stated he was a skilled patient at [facility] and would like to return when discharged to finish his rehab. estate planner will contact [facility] and fax information
--- NOTE | 2020-02-10 11:05 | NUR ---
PHYSICAL THERAPY Physical Therapy evaluation completed on 4th floor with full evaluation to follow. Recommend physical therapy per plan of care and SNF upon discharge. Thank you for this referral. Aden Solorzano SPT Lexi Freire PT
--- NOTE | 2020-02-10 11:10 | NUR ---
Occupational Therapy evaluation completed on 4 with full eval to follow. Precautions include fall risk; bed/chair alarm,parkinsons tremors and rigidity,assist with ADLs and transfers, wheeled walker use, moderate complexity level [id number]. Recommend OT per pOC and SNF to enable return home with . Thank you. Milagros Bazan OTR/l
[2020-02-10 12:00] VITALS: BP 122/50
--- NOTE | 2020-02-10 12:44 | NUR ---
LASHANDA RECIEVED CALL FROM [facility] PATIENTS . SHE ASKED THAT THIS PATTERNMAKER WOOD REACH OUT TO CLINICAL OPERATIONS SPECIALIST ROSHAN. LASHANDA CONTACTED CLINICAL OPERATIONS SPECIALIST ROSHAN AT [phone]. LASHANDA EXPLAINED CONCERNS FOR PATIENT SIGNING A CHECK FROM AN INJURY CLAIM. CLINICAL OPERATIONS SPECIALIST ROSHAN STATED HE DOES NOT SEE AN ISSUE WITH THIS PATIENT SIGNING, ESPECIALLY WHEN THERE IS A FINANICAL POA ON FILE.
--- NOTE | 2020-02-10 13:10 | NUR ---
Patient seen for 15 min for toileting/changing after incontinency. OTR provided education to nursing executive for sit to stand from recliner while nursing executive changed patient after urinary incontinency. Patient was seated in recliner. OT educated patient on hand and foot placement and bending forward for sit to stand with min assist +2. Patient able to stand x 3 minutes while nursing executive cleaned patient after toileting. in standing patient able to weight shift while stepping. Patient needed min assist stand to sit. medical aide verbalizes good understanding of technique for sit to stand. Patient left in care of nursing executive. Milagros Bazan OTR/Zulma
--- NOTE | 2020-02-10 13:58 | NUR ---
PHYSICIAN AIDE MET WITH PATIENT IN THE LOBBY. PHYSICIAN AIDE TOOK DOCUMENTS TO THE PATIENT TO SIGN AND RETURNED THEM TO THE PATIENTS .
[2020-02-10 16:00] VITALS: BP 100/47
[2020-02-10 16:13] VITALS: BP 100/47
[2020-02-10 20:00] VITALS: BP 103/45
[2020-02-11] VITALS: BP 129/71
[2020-02-11 06:46] LABS: CHLORIDE 116 mmol/L (98-107); POTASSIUM 3.8 mmol/L (3.5-5.1); SODIUM 148 mmol/L (136-145)
[2020-02-11 06:53] LABS: BUN 25 mg/dl (7-24)
--- NOTE | 2020-02-11 07:17 | NUR ---
Clinicals and therapy evals/notes faxed to [facility] for review. Patient is short term skilled and would like to return upon discharge. Requires covid results prior to return.
--- NOTE | 2020-02-11 07:23 | NUR ---
Patient accepted to [facility], covid negative, HENS completed online, 3 night stay complete. Patient is ok to go when medically stable for discharge.
[2020-02-11 08:00] VITALS: BP 116/84
--- NOTE | 2020-02-11 08:58 | NUR ---
OT NOTE Pt was seen this A.M. 1:1 for 15 minute OT session. Upon arrival pt was supine in bed. Pt identified by name and and had no complaints at this time. Pt transferred supine to sit EOB with modA for assist with upper body and moving his hips to the EOB. While sitting EOB pt adjusted B socks with CGA while bringing leg up to knee level. Sit to stand completed from bed level with Ethan X 2 and use of w/w for UE support. Challenged pt's static standing tolerance needed for increased I in self care tasks and functional transfers. Pt was able to tolerate aprox 3 minutes before sitting due to fatigue. Standing pivot then completed from the EOB to the recliner with CGA and use of w/w for UE support. There he was left sitting upright with call light in hand, tray table in place, and body alarm activated for safety. Continue with rec D/C plan to return to SNF. CARYN Castañeda
--- NOTE | 2020-02-11 09:00 | NUR ---
PHYSICAL THERAPY Patient seen this am 1;1 for therapy visit and was resting supine in bed upon therapist arrival. Patient identified by name / and was joined by OT distribution center assistant for observation as patient reports no new c/o's at this time. Patient transfers supine to sit EOB with MIN A, tolerating static EOB sit x several minutes to fully awaken, SBA x 1. Patient also presented with continuos IV treatment and completed several sit to stand transfers, use of wh walker standing support, MIN A x 1. Patient tolerated approx 3 minutes static stand first trial and 2 minutes second attempt prior to fatigue. Patient also completed SPT to bedside chair, walker, MIN A, demonstrating very cautious step sequence, needing v/c to stand tall, with improved walker safety / navigation. Patient remained in chair with call light, tray table, telephone and body alarm for safety. Will continue per POC as tolerated, total treatment time 16 minutes. Tj Streeter, RN PROGRESSIVE CARE UNIT
[2020-02-11 12:00] VITALS: BP 100/54
[2020-02-11 16:00] VITALS: BP 123/38
[2020-02-11 20:00] VITALS: BP 123/38; BP 124/48
--- NOTE | 2020-02-11 20:14 | NUR ---
24 HR chart check completed.
--- NOTE | 2020-02-11 21:00 | NUR ---
RESTING IN BED. TREMORS NOTED. RESPIRATIONS EASY. LUNGS DIMINISHED, CLEAR. PULSE OX 95% RA. CALL LIGHT WITHIN REACH. NO VOICED COMPLAINTS. BED ALARM MAINTAINED FOR SAFETY
--- NOTE | 2020-02-11 21:24 | NUR ---
MEDICATED WITH DULCOLAX PER PRN ORDER FOR C/O CONSTIPATION. WILL MONITOR
[2020-02-12] VITALS: BP 109/51; BP 110/50
--- NOTE | 2020-02-12 | NUR ---
SLEEPING. NO DISTRESS NOTED. RESPIRATIONS EASY. VSS. CALL LIGHT WITHIN REACH. BED ALARM MAINTAINED
--- NOTE | 2020-02-12 06:00 | NUR ---
SLEPT THROUGHOUT NIGHT WITH NO DISTRESS NOTED. RESPIRATIONS EASY. CALL LIGHT WITHIN REACH. NO VOICED COMPLAINTS THIS SHIFT. BED ALARM MAINTAINED FOR SAFETY
[2020-02-12 07:09] LABS: BUN 17 mg/dl (7-24); CHLORIDE 112 mmol/L (98-107); CREATININE 1.26 mg/dL (0.70-1.30); SODIUM 145 mmol/L (136-145)
[2020-02-12 08:00] VITALS: BP 132/52
--- NOTE | 2020-02-12 09:16 | NUR ---
PHYSICAL THERAPY PT IS SITTING IN ROM CHAIR UPON ARRIVAL, PT IS AGREEABLE TO TX. PT IDENTIFIED BY AND NAME. PT C/O LOW BACK PAIN. STS FROM RECLINER CHAIR X3 W/ MIN/MOD A W/ V/C ON PROPER HAND PLACEMENT AND SAFETY / WHEELED WLAKER W/ G FOLLOW THROUGH. GT W/ WHEELED WALKER X20'XW W/ MIN/MOD A W/ CLOSE W/C FOLLOW D/T POOR SAFETY W/ AD, EXCESSIVE TRUNK FLEXION AND DECREASED STEP LENGTH REQUIRING CLOSE W/C FOLLOW FOR SAFETY. ONCE PT RETURNED TO CHAIR, ALRM TESTED AN PLACED W/ CALL LIGHT PLACED NEXT TO BED W/ EDUCATION TO CALL FOR HELP PRIOR TO TX. TOTAL TX TIME 16 MIN DMITRY FORTUNE, HELMET HAT BRIM CUTTER
--- NOTE | 2020-02-12 09:33 | NUR ---
OT NOTE PATIENT SEEN 1:1 THIS DATE 15 MINUTES. PATIENT IDENTIFIED BY NAME AND DATE OF . PATIENT SEATED IN RECLINER UPON ARRIVAL. COMPLETED UB DRESSING MOD A DON GOWN WITH EDUCATION COMPLETING SEATED FOR FALL PREVENTION. COMPLETED SIT TO STAND FROM RECLINER MIN A. COMPLETED DYANMIC STAND TOLERANCE USE FWW SUPPORT APPROX 1 MIN 30 SECONDS DEMONSTRATING F- BALANCE AND MIN VERBAL CUES SAFETY. CONTINUE TOWARDS PLAN OF CARE. PATIENT SEATED IN RECLINER END OF SESSION WITH CALL LIGHT IN REACH AND CHAIR ALARM INTACT WITH NO OTHER NEEDS VERBALIZED. AIDA LOMBARDO/Zulma
--- NOTE | 2020-02-12 09:49 | NUR ---
Nutritional Support Services Note: Appetite is fair to good for meals. He receives a regular diet as ordered. Ht.6' Wt.303#. IBW 168-188. He is approximately 115# above upper limit of IBW range. Wounds noted coccyx and right and left lower leg. Pt refuses a supplement at this time. Encouraged adequate protein intake. Will provide pt with a night snack. Will follow as needed. Kourtney Anthony Rdn Ld
[2020-02-12 12:00] VITALS: BP 109/79
--- NOTE | 2020-02-12 15:11 | NUR ---
PT DISCHARGED BACK TO [facility] AT THIS TIME. HEPLOCK REMOVED. F/U CARE AND MEDS DISCUSSED. PT TRANSPORTED VIA [facility]. PT REFUSED DISCHARGE WOUND PHOTOS.
--- NOTE | 2020-02-12 15:43 | NUR ---
PHYSICAL THERAPY CO-SIGN I approve of the Physical Therapy notes written above. Lexi Freire PT
--- NOTE | 2020-02-12 16:59 | NUR ---
OCCUPATIONAL THERAPY CO-SIGN I approve of the Occupational Therapy notes written above. JADE JOSE OTR/Zulma
== END 2020-02-12 15:19 | disposition other institution (70) ==
LOC: ED 08:30 → 4E 09:54 → EDHOLD 09:54 → 4E 10:02
PROVIDERS: Emergency Medicine; Student in an Organized Health Care Education/Training Program; ADMIT Internal Medicine; ATTEND Internal Medicine
DX: N17.0 Acute kidney failure with tubular necrosis (principal); I12.9 Hypertensive chronic kidney disease with stage 1 through stage 4 chronic kidney disease, or unspecified chronic kidney disease; N18.30 Chronic kidney disease, stage 3 unspecified; G20 Parkinson's disease; E86.0 Dehydration; E87.8 Other disorders of electrolyte and fluid balance, not elsewhere classified; F32.9 Major depressive disorder, single episode, unspecified; K21.9 Gastro-esophageal reflux disease without esophagitis; G47.30 Sleep apnea, unspecified; D53.9 Nutritional anemia, unspecified; E66.01 Morbid (severe) obesity due to excess calories; Z68.42 Body mass index [BMI] 45.0-49.9, adult

== ENCOUNTER 2020-03-21 15:27 | Emergency (ER) | payer MEDICARE, OTHER ==
[~2020-03-21] VITALS: Ht 182.8 cm; Wt 136.1 kg
[~2020-03-21 15:27] MED LIST changes: +HYDROXYZINE PAM25 M1 PO; +WELLBUTRIN XL150 MG PO
[2020-03-21 16:53] LABS: BASO % 0.7 % (0.0-1.0); EOS # 0.4 10*3/uL (0.0-0.4); EOS % 7.3 % (1.0-4.0); HEMATOCRIT 39.1 % (42.0-52.0); LYMPH # 1.2 10*3/uL (1.3-4.4); LYMPH % 21.5 % (27.0-41.0); MEAN CELL VOLUME 97.3 fl (80.0-94.0); MEAN CORPUSCULAR HGB 30.1 pg (27.0-31.0); MEAN CORPUSCULAR HGB CONC 30.9 g/dl (33.0-37.0); MEAN PLATELET VOLUME 11.3 fl (9.6-12.3); MONO # 0.7 10*3/uL (0.1-1.0); MONO % 12.9 % (3.0-9.0); NEUT # 3.2 10*3/uL (2.3-7.9); NEUT % 57.4 % (47.0-73.0); PLATELET COUNT AUTOMATED 151 10*3/uL (130-400); RED BLOOD COUNT 4.02 10*6/uL (4.50-5.90); RED CELL DISTRI WIDTH 13.2 % (0-14.5); WHITE BLOOD COUNT 5.5 10*3/uL (4.8-10.8)
[2020-03-21 17:07] LABS: ACT PARTIAL THROMBO TIME 46.3 SECONDS (20.0-32.1); INTERNATIONAL NORM RATIO 1.7 (2.0-3.5)
[2020-03-21 17:14] LABS: ALBUMIN 3.4 gm/dl (3.1-4.5); ALKALINE PHOSPHATASE 73 U/L (45-117); BUN 24 mg/dl (7-24); CHLORIDE 110 mmol/L (98-107); CREATININE 1.47 mg/dL (0.70-1.30); LIPASE 56 U/L (73-393); POTASSIUM 4.1 mmol/L (3.5-5.1); SGOT/AST 14 IU/L (3-35); SGPT/ALT 9 U/L (12-78); SODIUM 142 mmol/L (136-145); TOTAL PROTEIN 6.8 gm/dL (6.4-8.2)
[2020-03-21 17:15] LABS: TROPONIN I < 0.015 ng/ml (<0.045)
[2020-03-21 19:10] VITALS: BP 114/57
[2020-03-21 20:38] LABS: BILIRUBIN 2+ (Negative); BLOOD Negative (Negative); CLARITY Clear (Clear); COLOR Dark Yellow (Yellow); GLUCOSE Negative (Negative); KETONE Negative (Negative); LEUKO ESTERASE Negative (Negative); NITRITE Negative (Negative); PH 6.5 (4.5-8.0); SPECIFIC GRAVITY 1.015 (1.001-1.030); UROBILINOGEN 0.2 E.U./dl (0.0-1.0)
[2020-03-21 20:42] LABS: WBC 0-2 wbc/hpf (0-5)
== END 2020-03-21 20:50 | disposition home or self-care (01) ==
LOC: ED 15:27
PROVIDERS: Emergency Medicine
DX: R33.9 Retention of urine, unspecified (principal); N17.9 Acute kidney failure, unspecified; Z88.2 Allergy status to sulfonamides; Z88.8 Allergy status to other drugs, medicaments and biological substances; Z79.899 Other long term (current) drug therapy; Z87.891 Personal history of nicotine dependence

== ENCOUNTER 2020-04-09 09:45 | Inpatient (IN) | payer MEDICARE, OTHER ==
[~2020-04-09] VITALS: Ht 182.8 cm; Wt 130.4 kg
[2020-04-09 09:53] VITALS: BP 114/52
[2020-04-09 10:27] LABS: BASO % 0.8 % (0.0-1.0); EOS # 0.4 10*3/uL (0.0-0.4); EOS % 7.1 % (1.0-4.0); HEMATOCRIT 37.6 % (42.0-52.0); LYMPH # 1.4 10*3/uL (1.3-4.4); LYMPH % 27.3 % (27.0-41.0); MEAN CELL VOLUME 96.9 fl (80.0-94.0); MEAN CORPUSCULAR HGB 30.2 pg (27.0-31.0); MEAN CORPUSCULAR HGB CONC 31.1 g/dl (33.0-37.0); MEAN PLATELET VOLUME 11.6 fl (9.6-12.3); MONO # 0.7 10*3/uL (0.1-1.0); MONO % 13.4 % (3.0-9.0); NEUT # 2.7 10*3/uL (2.3-7.9); NEUT % 51.2 % (47.0-73.0); PLATELET COUNT AUTOMATED 128 10*3/uL (130-400); RED BLOOD COUNT 3.88 10*6/uL (4.50-5.90); RED CELL DISTRI WIDTH 13.4 % (0-14.5); WHITE BLOOD COUNT 5.2 10*3/uL (4.8-10.8)
[2020-04-09 10:42] LABS: INTERNATIONAL NORM RATIO 1.1 (2.0-3.5)
[2020-04-09 10:44] VITALS: BP 108/60
[2020-04-09 10:44] LABS: ALBUMIN 3.3 gm/dl (3.1-4.5); ALKALINE PHOSPHATASE 76 U/L (45-117); BUN 19 mg/dl (7-24); CHLORIDE 107 mmol/L (98-107); CREATININE 1.27 mg/dL (0.70-1.30); POTASSIUM 3.7 mmol/L (3.5-5.1); SGOT/AST 20 IU/L (3-35); SGPT/ALT 10 U/L (12-78); SODIUM 141 mmol/L (136-145); TOTAL PROTEIN 6.7 gm/dL (6.4-8.2)
[2020-04-09 10:46] LABS: TROPONIN I < 0.015 ng/ml (<0.045)
--- NOTE | 2020-04-09 11:01 | NUR ---
PT'S REGIS UPDATED ON PT'S CONDITION WITH PT'S ACKNOWLEDGEMENT AN APPROVAL, PT RESTING IN EXAM BED W/O ADDITIONAL COMPLAINTS VOICED W/SAFETY PRECAUTIONS INTACT AND CALL LIGHT WITHIN REACH,WILL CONTINUE TO MONITOR.
--- NOTE | 2020-04-09 12:41 | NUR ---
Family updated on pt status at this time.
[2020-04-09 12:53] LABS: BILIRUBIN Negative (Negative); BLOOD Negative (Negative); CLARITY Clear (Clear); COLOR Yellow (Yellow); GLUCOSE Negative (Negative); KETONE Negative (Negative); LEUKO ESTERASE Negative (Negative); NITRITE Negative (Negative); UROBILINOGEN 0.2 E.U./dl (0.0-1.0)
[2020-04-09 13:09] LABS: BACTERIA TRACE
[2020-04-09 13:10] LABS: EPITHELIAL CELLS 0-2
--- NOTE | 2020-04-09 13:40 | NUR ---
PT FAMILY NOTIFIED OF ADMITTION/ AND UPDATED ON CONDITION. SPOKE WITH HIS .
[2020-04-09 14:24] VITALS: BP 108/62
[2020-04-09] MEDS ORDERED: EXELON1 EACH T (15:00)
[2020-04-09] MEDS ORDERED: XARELTO10 MG PO (15:01)
[2020-04-09] MEDS ORDERED: CIPRO500 MG PO (15:42)
[2020-04-09] MEDS ORDERED: AMOXICILLIN500 M3 PO (15:43)
--- NOTE | 2020-04-09 17:23 | NUR ---
pt's arash notified of pt's admission and diagnosis with pt's acknowledgement.
--- NOTE | 2020-04-09 17:49 | NUR ---
PT IS EATING DINNER TRAY IN BED W/ CALL LIGHT IN REACH. PT IS WITHOUT NEEDS AT THIS TIME.
--- NOTE | 2020-04-09 19:02 | NUR ---
PT'S SPOUSE CALLED D/T PT CONCERNED THAT HE LOST HIS CELL PHONE HERE,PT'S SPOUSE CONFIRMED THAT SHE(REGIS)HAS PT'S CELL PHONE,EYEGLASSES AND DENTURES IN CASE "HE'S LOOKING FOR ANY OF THEM".
[2020-04-09 19:58] VITALS: BP 114/54
--- NOTE | 2020-04-09 20:00 | NUR ---
PT SLEEPING IN BED W/SAFTEY PRECAUTIONS IN PLACE. PT W/O DISTRESS.
--- NOTE | 2020-04-09 22:47 | NUR ---
UPDATED PTS AND TRANFERRED HER IN TO PATIENTS ROOM TO TALK TO HIM. NO COPMLAINTS AT THIS TIME. MEDICATED PER EMAR. RESP EASY AND NONLABORE DON ROOM AIR.
--- NOTE | 2020-04-09 22:53 | NUR ---
CLARIFIED MED ORDERS WITH HOSPITALIST.
[2020-04-10] VITALS (7 sets, daily range): BP systolic 102–132; BP diastolic 31–58
--- NOTE | 2020-04-10 02:28 | NUR ---
ADMINISTERED 2L O2 NC POX 89 ON WHILE PT WAS SLEEPING 97% ON 2L NC
--- NOTE | 2020-04-10 02:59 | NUR ---
PT RESTING IN BED WITH EYES CLOSED, NO DISTRESS NOTED, CALL LIGHT WITHIN REACH, RN WILL CONTINUE TO MONITOR
--- NOTE | 2020-04-10 04:30 | NUR ---
A 64, admitted to , under the services of DOREEN Allen DO with a diagnosis of UTI, PUI FOR COVID 19. Chief complaint is SOB, URINARY SYMPTOMS. Patient arrived via bed from ER. Monitor applied. Initial assessment completed. Vital signs taken and recorded. DOREEN ALLEN DO notified of admission to the unit. Orders received. See assessment for past medical history, medications and allergies. Patient and/or family oriented to unit. [facility] visitation policy reviewed. Clothing/patient valuable form completed. THOMPSON GUARDADO
--- NOTE | 2020-04-10 04:56 | NUR ---
PT WAS A PUI COVID NO PRECAUTION SIGN WAS ON PT DOOR WHEN THIS RN ARRIVED FOR SHIFT
[2020-04-10 07:06] LABS: BASO % 0.1 % (0.0-1.0); HEMATOCRIT 42.4 % (42.0-52.0); LYMPH % 14.2 % (27.0-41.0); MEAN CELL VOLUME 96.1 fl (80.0-94.0); MEAN CORPUSCULAR HGB 29.9 pg (27.0-31.0); MEAN CORPUSCULAR HGB CONC 31.1 g/dl (33.0-37.0); MEAN PLATELET VOLUME 11.7 fl (9.6-12.3); MONO # 0.5 10*3/uL (0.1-1.0); MONO % 7.4 % (3.0-9.0); NEUT # 5.3 10*3/uL (2.3-7.9); PLATELET COUNT AUTOMATED 161 10*3/uL (130-400); RED BLOOD COUNT 4.41 10*6/uL (4.50-5.90); WHITE BLOOD COUNT 6.8 10*3/uL (4.8-10.8)
[2020-04-10 07:26] LABS: ALBUMIN 3.2 gm/dl (3.1-4.5); BUN 15 mg/dl (7-24); CHLORIDE 110 mmol/L (98-107); CREATININE 1.21 mg/dL (0.70-1.30); POTASSIUM 4.5 mmol/L (3.5-5.1); SGOT/AST 18 IU/L (3-35); SGPT/ALT 17 U/L (12-78); SODIUM 142 mmol/L (136-145); TOTAL PROTEIN 7.1 gm/dL (6.4-8.2)
[2020-04-10 07:28] LABS: ALKALINE PHOSPHATASE 76 U/L (45-117); LDH 153 U/L (87-241)
--- NOTE | 2020-04-10 07:54 | NUR ---
24 HR chart check completed.
--- NOTE | 2020-04-10 09:00 | NUR ---
AWAKE, RESTING IN BED WITH NO DISTRESS NOTED. RESPIRATIONS EASY. LUNGS DIMINISHED. PULSE OX 100% RA. DENIES SOB. CALL LIGHT WITHIN REACH. NO VOICED COMPLAINTS
--- NOTE | 2020-04-10 12:00 | NUR ---
RESTING WITH NO DISTRESS NOTED. RESPIRATIONS EASY. VSS. CALL LIGHT WITHIN REACH
--- NOTE | 2020-04-10 16:00 | NUR ---
RESTING WITH NO ACUTE DISTRESS NOTED. RESPIRATIONS EASY. VSS. PULSE OX 97% 2L. CALL LIGHT WITHIN REACH. NO VOICED COMPLAINTS. BED ALARM MAINTAINED FOR SAFETY
--- NOTE | 2020-04-10 22:00 | NUR ---
RESTING IN BED WITH NO ACUTE DISTRESS NOTED. RESPIRATIONS EASY. O2 IN USE. CALL LIGHT WITHIN REACH. NO VOICED COMPLAINTS. BED ALARM MAINTAINED FOR SAFETY
[2020-04-11 07:42] LABS: BASO % 0.2 % (0.0-1.0); EOS % 0.2 % (1.0-4.0); HEMATOCRIT 44.8 % (42.0-52.0); LYMPH % 16.5 % (27.0-41.0); MEAN CELL VOLUME 95.9 fl (80.0-94.0); MEAN CORPUSCULAR HGB CONC 31.3 g/dl (33.0-37.0); MEAN PLATELET VOLUME 12.1 fl (9.6-12.3); MONO % 8.4 % (3.0-9.0); NEUT % 74.2 % (47.0-73.0); PLATELET COUNT AUTOMATED 184 10*3/uL (130-400); RED BLOOD COUNT 4.67 10*6/uL (4.50-5.90); RED CELL DISTRI WIDTH 13.1 % (0-14.5); WHITE BLOOD COUNT 12.1 10*3/uL (4.8-10.8)
[2020-04-11 08:00] VITALS: BP 131/58
--- NOTE | 2020-04-11 08:15 | NUR ---
OT NOTE Occupational therapy order and nursing screen received. Will follow up with the patient for completion of an OT eval. Thank you. Savannah Espino, OTR/L
[2020-04-11 08:16] LABS: ALBUMIN 3.3 gm/dl (3.1-4.5); ALKALINE PHOSPHATASE 76 U/L (45-117); BUN 23 mg/dl (7-24); CHLORIDE 111 mmol/L (98-107); CREATININE 1.33 mg/dL (0.70-1.30); LDH 167 U/L (87-241); POTASSIUM 4.1 mmol/L (3.5-5.1); SGOT/AST 13 IU/L (3-35); SGPT/ALT 7 U/L (12-78); SODIUM 144 mmol/L (136-145); TOTAL PROTEIN 7.2 gm/dL (6.4-8.2)
--- NOTE | 2020-04-11 09:30 | NUR ---
Hybrid Car Mechanic in to talk to patient. Patient states lives at home with . There are no steps in the home. Physician: harvey eldridge Pharmacy: mail Home health services: [facility] Patient's level of ADLs: MINIMAL ASSIST Patient has working utilities: all working DME: rollator walker, cpap, bedside commode Follow-up physician's appointment after d/c: will be made by hospitalist nurse director upon discharge Does patient want to access PORTAL?: no Discharge plan discussed with patient's by phone, she stated patient lives at home with her, he uses a rollator walker for ambulation and requires minimal assistance with adls. he currently has [facility] home health, he has a bedside commode, rollator walker and cpap at home, discussed a discharged plan with including a short term residential for 5 days of rehab and 24 hour care prior to returning home, stated if patient is able to ambulate he is able to return home and resume [facility] home [facility]. if physical therapy evaluation recommends SNF she would like him refered to [facility].. will wait for the PT eval and if recommended refer to [facility]. case management will follow. ROYAL HUNTER
--- NOTE | 2020-04-11 09:34 | NUR ---
Occupational Therapy evaluation completed on four with full evaluation to follow. Recommend occupational therapy per plan of care and SNF upon discharge. Thank you for this referral. Savannah Espino OTR/L
--- NOTE | 2020-04-11 09:35 | NUR ---
PHYSICAL THERAPY Physical Therapy evaluation completed on 4E with full evaluation to follow. Low complexity skilled PT evaluation per chart review and evaluation, [id number]. Recommend physical therapy per plan of care and SNF upon discharge. Thank you for this referral. Arely Medina,PT,DPT
--- NOTE | 2020-04-11 10:55 | NUR ---
Patients PT/OT evals and notes faxed to [facility] for review/ waiting on acceptance.
--- NOTE | 2020-04-11 11:16 | NUR ---
PHYSICAL THERAPY Nursing screen received, PT order received. PT evaluation complete. Recommend SNF at discharge. Thank you. Arely Medina,PT,DPT
--- NOTE | 2020-04-11 11:42 | NUR ---
Eda from [facility] stating patient is accepted and ok to go to [facility] today; The 3 night Medicare requirement has been waived. Dr. Rossi notified.
[2020-04-11] MEDS ORDERED: DOXYCYCLINE100 M3 PO (11:54)
[2020-04-11 12:00] VITALS: BP 116/49
--- NOTE | 2020-04-11 12:19 | NUR ---
Notified patients patient is being discharged to [facility]. Patient is saying he wants to go home. and patient discussed, is stating after reading the physical therapy report she is unable to care for him so he must go to [facility]; she stated she was calling him right now and telling him he had to go.
--- NOTE | 2020-04-11 12:55 | NUR ---
PHYSICAL THERAPY PT treatment complete, 15 minutes total. Upon initial evaluation, PT/OT recommended SNF for patient for safety with gait, transfers, functional mobility. Patient upset by this suggestion, stating that he could walk further safely and requests to go home. TUG testing performed. Patient using FWW and Herbert x2 during gait testing. TUG = 50 seconds, indicating high risk for recurrent falls. TUG consists of starting from a seated position, walking 10 feet, turning, walking 10 feet and then ending with sitting in a chair. Discussed with patient that PT still recommending SNF for safety and high risk of falls. Patient reporting that he intends to go home at discharge. Case management notified of high falls risk and continued recommendation for SNF. Thank you. Arely eMdina,PT,DPT
--- NOTE | 2020-04-11 13:16 | NUR ---
Asked PT and OT to go back into patients room per patients request to see if he can walk well enough to go home. Therapists are still recommending snf placement, however patient is adamately refusing. He said he is going home and he is walking as well as he was when he left [facility] last month. Contacted to discuss. She would prefer that he goes to [facility] but says she can't force him to go. He does have a "lift chair" and does use his walker to get around the house, it just takes him forever because of his Parkinsons. I gave her the phone number for the [facility] and told her to call and ask them about the [facility] program for Parkinsons theray. She said she will come and pick him up when he is ready for discharge.
--- NOTE | 2020-04-11 14:45 | NUR ---
Discharge instructions reviewed with patient/family. Patient receptive and verbalizes understanding. Follow-up care arranged. Written instructions given to patient/family. HEPLOCK DISCONTINUED. PHOTOGRAPHIC HAND DEVELOPER REMOVED. PRESCRIPTION GIVEN TO PATIENT. DISCHARGED VIA WHEELCHAIR, PICKED UP BY . JAYSON MACHADO
== END 2020-04-11 14:45 | disposition home or self-care (01) | DRG 178 ==
LOC: ED 09:45 → EDHOLD 12:55 → 4E 12:55 → EDHOLD 13:10 → 4E 04-10 04:43
PROVIDERS: Internal Medicine; Physician Assistant; ADMIT Family Medicine; ATTEND Family Medicine
DX: J15.6 Pneumonia due to other Gram-negative bacteria (principal); E44.0 Moderate protein-calorie malnutrition; I82.409 Acute embolism and thrombosis of unspecified deep veins of unspecified lower extremity; D53.9 Nutritional anemia, unspecified; Z20.828 Contact with and (suspected) exposure to other viral communicable diseases; G20 Parkinson's disease; G47.30 Sleep apnea, unspecified; K21.9 Gastro-esophageal reflux disease without esophagitis; M19.90 Unspecified osteoarthritis, unspecified site; N18.30 Chronic kidney disease, stage 3 unspecified; R26.2 Difficulty in walking, not elsewhere classified; Z96.643 Presence of artificial hip joint, bilateral; R00.1 Bradycardia, unspecified; D69.6 Thrombocytopenia, unspecified; F32.9 Major depressive disorder, single episode, unspecified; I12.9 Hypertensive chronic kidney disease with stage 1 through stage 4 chronic kidney disease, or unspecified chronic kidney disease; E55.9 Vitamin D deficiency, unspecified; Z68.28 Body mass index [BMI] 28.0-28.9, adult; Z88.2 Allergy status to sulfonamides; Z88.8 Allergy status to other drugs, medicaments and biological substances

== ENCOUNTER 2020-04-12 20:32 | Inpatient (IN) | payer MEDICARE, OTHER ==
[~2020-04-12] VITALS: Ht 213.3 cm; Wt 131.8 kg
[2020-04-12] VITALS (11 sets, daily range): BP systolic 60–97; BP diastolic 29–47
[~2020-04-12 20:32] MED LIST changes: +AMOXICILLIN500 M3 PO; +CIPRO500 MG PO; +EXELON1 EACH T; +XARELTO10 MG PO
--- NOTE | 2020-04-12 20:55 | NUR ---
NOTIFIED FOOD AND BEVERAGE LEAD AND MD OF PT CONDITION, BOTH IN ROOM TO ASSESS
--- NOTE | 2020-04-12 21:10 | NUR ---
AFTER MD AND ELECTRICAL CONTROLS TECHNICIAN NEURO ASSESSMENT, BRAIN ATTACK CALLED, ACCOMANIED PT TO CT WITH MONITOR INTACT
--- NOTE | 2020-04-12 21:28 | NUR ---
RETURNED FROM CT, STAFF RADIOLOGIST IN ROOM NEURO ASSESSMENT CONTINUED MOVECD TO ROOM ONE
[2020-04-12 21:43] LABS: BASO % 0.2 % (0.0-1.0); EOS # 0.2 10*3/uL (0.0-0.4); EOS % 2.5 % (1.0-4.0); HEMATOCRIT 37.5 % (42.0-52.0); LYMPH # 1.5 10*3/uL (1.3-4.4); LYMPH % 16.8 % (27.0-41.0); MEAN CELL VOLUME 97.4 fl (80.0-94.0); MEAN CORPUSCULAR HGB 29.9 pg (27.0-31.0); MEAN CORPUSCULAR HGB CONC 30.7 g/dl (33.0-37.0); MEAN PLATELET VOLUME 11.6 fl (9.6-12.3); MONO # 1.1 10*3/uL (0.1-1.0); MONO % 12.7 % (3.0-9.0); NEUT # 5.9 10*3/uL (2.3-7.9); NEUT % 67.2 % (47.0-73.0); PLATELET COUNT AUTOMATED 142 10*3/uL (130-400); RED BLOOD COUNT 3.85 10*6/uL (4.50-5.90); RED CELL DISTRI WIDTH 13.1 % (0-14.5); WHITE BLOOD COUNT 8.8 10*3/uL (4.8-10.8)
--- NOTE | 2020-04-12 21:52 | NUR ---
SPOKE WITH REGIS, DID PLANT MECHANIC, REGIS STATES HAS HAD SPEECH SLURRED "FOR WEEKS, HIS DENTURES DONT FIT WELL AND HE HAS PARKINSONS" PT STATES HE WANTS CHEST COMPRESSIONS BUT NO INTUBATION SPEECH APPROPRIATE TONGUE MIDLINE PUPIL REACTIVE LEFT EYE, COGNOS LEAD FIRM AND EQUAL PEDAL PUSH PULL STRONG AND EQUAL SESAY #16 FRISIAN PLACED, INTITALLY 600CC DAVID URINE NOTED PT REMAINS A&OX3
[2020-04-12 21:56] LABS: ACT PARTIAL THROMBO TIME 32.4 SECONDS (20.0-32.1); INTERNATIONAL NORM RATIO 1.4 (2.0-3.5)
[2020-04-12 22:00] LABS: ALKALINE PHOSPHATASE 62 U/L (45-117); CHLORIDE 114 mmol/L (98-107); CREATININE 1.98 mg/dL (0.70-1.30); POTASSIUM 3.5 mmol/L (3.5-5.1); SGOT/AST 21 IU/L (3-35); SGPT/ALT 8 U/L (12-78); SODIUM 145 mmol/L (136-145); TOTAL PROTEIN 5.5 gm/dL (6.4-8.2)
[2020-04-12 22:01] LABS: BUN 38 mg/dl (7-24); TROPONIN I < 0.015 ng/ml (<0.045)
[2020-04-12 22:23] LABS: BILIRUBIN 1+ (Negative); BLOOD Negative (Negative); CLARITY Clear (Clear); COLOR Dark Yellow (Yellow); GLUCOSE Negative (Negative); KETONE Trace (Negative); LEUKO ESTERASE Trace (Negative); NITRITE Negative (Negative); UROBILINOGEN 0.2 E.U./dl (0.0-1.0)
[2020-04-12 22:55] LABS: BACTERIA TRACE; RBC 0-2 rbc/hpf (0-2)
[2020-04-12 22:56] LABS: MUCOUS 2+
--- NOTE | 2020-04-12 23:07 | NUR ---
REPORT GIVEN TO HENRRY BRUSH.
--- NOTE | 2020-04-12 23:08 | NUR ---
ELEMENTARY TEACHER ROLDAN IN ROOM, DISCUSSED PLAN OF CARE
--- NOTE | 2020-04-12 23:57 | NUR ---
PT RESTING IN BED, NO ACUTE DISTRESS NOTED UPON THIS RN EXITING THE ROOM
[2020-04-13] VITALS (36 sets, daily range): BP systolic 85–142; BP diastolic 31–60
--- NOTE | 2020-04-13 00:05 | NUR ---
UNABLE TO OBTAIN STANDING BLOOD PRESSURE FOR ORTHOSTATICS D/T PT INCREASING PAIN LEVEL
--- NOTE | 2020-04-13 01:30 | NUR ---
PT BED CHANGED FROM 5TH FLOOR TO ICCU D/T BP 82/44
--- NOTE | 2020-04-13 01:38 | NUR ---
CALLED THE RESIDENT ABOUT PT HEART RATE 30-40'S RESIDENT STATED "I WILL ADD SOMETHING ELSE OR MAYBE CONSULT CARDIOLOGY"
--- NOTE | 2020-04-13 02:04 | NUR ---
PT TO ROOM 502-2 AT THIS TIME.
--- NOTE | 2020-04-13 02:10 | NUR ---
PT REFUSING EKG AT THIS TIME STATES "I WANT TO SLEEP"
--- NOTE | 2020-04-13 04:24 | NUR ---
PT RESTING IN BED WITH EYES CLOSED, NO ACUTE DISTRESS NOTED UPON THIS RN EXITING THE ROOM
--- NOTE | 2020-04-13 05:46 | NUR ---
PT RESTING IN BED WITH EYES CLOSED, NO ACUTE DISTRESS NOTED UPON THIS RN EXITING THE ROOM
[2020-04-13 05:47] LABS: ALBUMIN 3.2 gm/dl (3.1-4.5); CREATININE 1.67 mg/dL (0.70-1.30); POTASSIUM 3.5 mmol/L (3.5-5.1); TOTAL PROTEIN 6.2 gm/dL (6.4-8.2)
[2020-04-13 06:15] LABS: BASO # 0.1 10*3/uL (0.0-0.1); BASO % 0.5 % (0.0-1.0); EOS # 0.4 10*3/uL (0.0-0.4); EOS % 4.8 % (1.0-4.0); HEMATOCRIT 41.7 % (42.0-52.0); LYMPH # 2.2 10*3/uL (1.3-4.4); LYMPH % 23.6 % (27.0-41.0); MEAN CELL VOLUME 96.8 fl (80.0-94.0); MEAN CORPUSCULAR HGB 29.9 pg (27.0-31.0); MEAN CORPUSCULAR HGB CONC 30.9 g/dl (33.0-37.0); MEAN PLATELET VOLUME 11.5 fl (9.6-12.3); MONO % 10.3 % (3.0-9.0); NEUT # 5.6 10*3/uL (2.3-7.9); PLATELET COUNT AUTOMATED 157 10*3/uL (130-400); RED BLOOD COUNT 4.31 10*6/uL (4.50-5.90); RED CELL DISTRI WIDTH 13.2 % (0-14.5); WHITE BLOOD COUNT 9.3 10*3/uL (4.8-10.8)
--- NOTE | 2020-04-13 06:44 | NUR ---
PT RESTING IN BED WITH EYES CLOSED, NO ACUTE DISTRESS NOTED WHEN THIS RN EXITED ROOM
--- NOTE | 2020-04-13 07:44 | NUR ---
PT RESTING IN BED WITH EYES CLOSED. NO ACUTE DISTRESS. RESPS EASY AND NON LABORED. SIDERAILS UP X2
--- NOTE | 2020-04-13 07:50 | NUR ---
SESAY DRAINED WITH 1575CC OF URINE OUTPUT
--- NOTE | 2020-04-13 08:00 | NUR ---
DR WASHINGTON CALLED AND SAID TO DECREASE PTS LEVOPHED TO 3MCG
--- NOTE | 2020-04-13 08:09 | NUR ---
TRIED TO GET PTS UPDATED MED REC. PT IS INCOMPHRENSIBLE. WILL CONTACTS PTS PHARMACY, [facility], WHEN THEY OPEN AT 0900 THIS MORNING. WAS NOT ABLE TO FIND PTS MED LIST IF HE HAD BROUGHT ONE
--- NOTE | 2020-04-13 09:13 | NUR ---
CALLED AND GAVE ME MED REC.
--- NOTE | 2020-04-13 10:31 | NUR ---
PT AWAKE AND ORIENTED. WANTED SOME WATER WHICH WAS PROVIDED. NO OTHER NEEDS AT THIS TIME
--- NOTE | 2020-04-13 11:11 | NUR ---
PT RESTING IN BED WITH EYES CLOSED. RESPIRATIONS EASY AND REGULAR. LEVOPHED INFUSING AT 3MCG/M. B/P 118/52
--- NOTE | 2020-04-13 11:24 | NUR ---
PHYSICAL THERAPY PT evaluation attempted. Spoke with nurse in emergency department. Patient not appropriate for skilled PT services at this time due to hypotension. Will return at a later time/date to complete skilled PT evaluation. Thank you. Arely Medina,PT,DPT
--- NOTE | 2020-04-13 12:18 | NUR ---
DR. BLEVINS GAVE ORDERS TO TURN DOWN LEVOPHED TO 2MCG/M
--- NOTE | 2020-04-13 14:08 | NUR ---
OT NOTE Occupational therapy order received and chart reviewed. Patient on hold at this time due to hypotension. Will check back at a later date for completion of an OT evaluation. Thank you. Savannah Espino, OTR/L
--- NOTE | 2020-04-13 14:09 | NUR ---
PHYSICAL THERAPY PT evaluation attempted. Patient on hold for skilled PT services at this time. Will attempt PT evaluation again at a later date. Thank you. Arely Medina,PT,DPT
--- NOTE | 2020-04-13 15:34 | NUR ---
DR. BLEVINS GAVE ORDERS TO TURN OFF THE LEVOPHED.
--- NOTE | 2020-04-13 16:01 | NUR ---
PT AWAKE IN BED. A+OX3 AT THIS TIME. DENIES ANY NEEDS.
--- NOTE | 2020-04-13 16:42 | NUR ---
PHYSICIAN NOTIFIED OF PT BLOOD PRESSURE 85/30
--- NOTE | 2020-04-13 16:49 | NUR ---
DR. WASHINGTON WANTS TO RESTART LEVOPHED AND CONTINUE TO TITRATE TO ACHIEVE A MAP GREATER THAN 65.
--- NOTE | 2020-04-13 16:53 | NUR ---
LEVOPHED INFUSING AT 2MCG/M BP 97/42. WILL REASSESS
--- NOTE | 2020-04-13 17:25 | NUR ---
A 64, admitted to ICCU, under the services of BRANDON Arellano DO with a diagnosis of CELLULITIS OF R LEG. Chief complaint is FALL. Patient arrived via stretcher from ER. Monitor applied. Initial assessment completed. Vital signs taken and recorded. BRANDON ARELLANO DO notified of admission to the unit. Orders received. See assessment for past medical history, medications and allergies. Patient and/or family oriented to unit. [facility] ICCU visitation policy reviewed. Clothing/patient valuable form completed. JACIEL WILKINSON
--- NOTE | 2020-04-13 17:57 | NUR ---
I PAGED DR BRO TO MAKE HIM AWARE OF PT SEVERE BRADYCARIA OF 29-45. PT ASYMPTOMATIC. ALERT AND ORIENTED. BP 127/41. IVF AND LEVOPHED GTT INFUSING.
--- NOTE | 2020-04-13 18:00 | NUR ---
DR BRO RETURNED CALL AND ORDER FOR DOPAMINE GTT TO BE STARTED AND LEVOPHED GTT TO BE TITRATED OFF.
[2020-04-14] VITALS (12 sets, daily range): BP systolic 100–131; BP diastolic 43–63
[2020-04-14 06:09] LABS: CHLORIDE 114 mmol/L (98-107); CREATININE 1.13 mg/dL (0.70-1.30); POTASSIUM 3.4 mmol/L (3.5-5.1); SODIUM 146 mmol/L (136-145)
[2020-04-14 06:15] LABS: THYROID STIM HORMONE (HS) 0.322 uIU/ml (0.358-4.75)
[2020-04-14 06:17] LABS: BUN 17 mg/dl (7-24)
[2020-04-14 06:41] LABS: BASO % 0.5 % (0.0-1.0); EOS # 0.5 10*3/uL (0.0-0.4); EOS % 8.4 % (1.0-4.0); HEMATOCRIT 41.7 % (42.0-52.0); LYMPH # 1.2 10*3/uL (1.3-4.4); LYMPH % 19.4 % (27.0-41.0); MEAN CELL VOLUME 95.2 fl (80.0-94.0); MEAN CORPUSCULAR HGB 30.4 pg (27.0-31.0); MEAN CORPUSCULAR HGB CONC 31.9 g/dl (33.0-37.0); MEAN PLATELET VOLUME 12.4 fl (9.6-12.3); MONO # 0.6 10*3/uL (0.1-1.0); MONO % 10.8 % (3.0-9.0); NEUT # 3.6 10*3/uL (2.3-7.9); NEUT % 60.2 % (47.0-73.0); PLATELET COUNT AUTOMATED 134 10*3/uL (130-400); RED BLOOD COUNT 4.38 10*6/uL (4.50-5.90); RED CELL DISTRI WIDTH 12.7 % (0-14.5); WHITE BLOOD COUNT 5.9 10*3/uL (4.8-10.8)
--- NOTE | 2020-04-14 08:30 | NUR ---
IVF'S DC'D PER DR MATTHEWS.
--- NOTE | 2020-04-14 08:47 | NUR ---
Occupational Therapy evaluation completed on ICCU with full evaluation to follow. Recommend occupational therapy per plan of care and SNF upon discharge. Thank you for this referral. Savannah Espino OTR/L
--- NOTE | 2020-04-14 09:55 | NUR ---
PHYSICAL THERAPY Physical therapy evaluation completed. Full details and evaluation to follow. High complexity skilled PT evaluation performed ([id number]). PT will work on strength, balance, bed mobility, transfers, gait, AD usage and safety awareness per POC. Recommend SNF at discharge. Laney Bourne PT DPT
--- NOTE | 2020-04-14 10:40 | NUR ---
EFFIE TRAORE NOTIFIED OF [facility] CONSULT.
--- NOTE | 2020-04-14 10:50 | NUR ---
Patients Sarita called stating patients spinning mule tender Dontae Aleman has a distribution letter and a check that both need to be signed with a Notary. Sarita will bring the papers to the hospital tomorrow 04/15/2020. Plant management Nydia Malin is a notary inside the hospital and stated she will sign with the patient tomorrow.
--- NOTE | 2020-04-14 11:14 | NUR ---
Full referral faxed to [facility]. Waiting on review/acceptance.
--- NOTE | 2020-04-14 11:46 | NUR ---
patient has been referred to [facility] for skilled care when discharged, case mangaement will follow for any home needs
--- NOTE | 2020-04-14 13:36 | NUR ---
Patient has been accepted to [facility], hospital exemption completed. Patient is ok to go when medically stable for discharge.
--- NOTE | 2020-04-14 13:57 | NUR ---
EFFIE TRAORE DID FACETIME CONSULT WITH PT.
--- NOTE | 2020-04-14 15:44 | NUR ---
PHYSICAL THERAPY Nursing screen recieved and chart reviewed. PT consult ordered and the order has been completed. Pt is on PT caseload at this time. Thanks Laney Bourne PT DPT
[2020-04-15] VITALS (11 sets, daily range): BP systolic 92–137; BP diastolic 40–74
--- NOTE | 2020-04-15 | NUR ---
Patient has no complaints at this time, wondering when he is going to get rid of the iv, explained to patient he has dopamine going and he might be able to stop it today if okayed by doctor. Patient has been stable, no signs of distress, heart rates dropped slightly when sleeping to 44. Blood pressure 120/50's. Will continue to monitor.
--- NOTE | 2020-04-15 02:25 | NUR ---
24 HR chart check completed.
[2020-04-15 06:15] LABS: BUN 15 mg/dl (7-24); CHLORIDE 113 mmol/L (98-107); CREATININE 1.07 mg/dL (0.70-1.30); POTASSIUM 3.7 mmol/L (3.5-5.1); SGOT/AST 30 IU/L (3-35); SGPT/ALT 13 U/L (12-78); SODIUM 145 mmol/L (136-145)
[2020-04-15 06:17] LABS: ALKALINE PHOSPHATASE 76 U/L (45-117); BASO % 0.4 % (0.0-1.0); EOS # 0.5 10*3/uL (0.0-0.4); EOS % 7.7 % (1.0-4.0); FREE T4 1.05 ng/dl (0.76-1.46); HEMATOCRIT 43.1 % (42.0-52.0); LYMPH # 1.6 10*3/uL (1.3-4.4); LYMPH % 23.2 % (27.0-41.0); MEAN CELL VOLUME 92.9 fl (80.0-94.0); MEAN CORPUSCULAR HGB 29.5 pg (27.0-31.0); MEAN CORPUSCULAR HGB CONC 31.8 g/dl (33.0-37.0); MEAN PLATELET VOLUME 11.8 fl (9.6-12.3); MONO # 0.6 10*3/uL (0.1-1.0); MONO % 8.7 % (3.0-9.0); NEUT # 4.1 10*3/uL (2.3-7.9); NEUT % 59.4 % (47.0-73.0); PLATELET COUNT AUTOMATED 151 10*3/uL (130-400); RED BLOOD COUNT 4.64 10*6/uL (4.50-5.90); RED CELL DISTRI WIDTH 12.6 % (0-14.5); TOTAL PROTEIN 6.5 gm/dL (6.4-8.2); WHITE BLOOD COUNT 6.9 10*3/uL (4.8-10.8)
--- NOTE | 2020-04-15 07:36 | NUR ---
Shift chart check completed.
--- NOTE | 2020-04-15 07:56 | NUR ---
Patient accepted to [facility], covid 19 test results are negative; patient is ok to go when medically stable for discharge.
--- NOTE | 2020-04-15 10:05 | NUR ---
OT NOTE Pt was seen this A.M. 1:1 for 20 minute OT session. Upon arrival pt was supine in bed. Pt identified by name and and had no complaints at this time other than generalized weakness. Pt transferred supine to sit EOB with maxA X 2. Sit to stand completed from bed level with Ethan X 2 and use of w/w for UE support. Challenged pt's static standing tolerance needed for increased I in self care tasks and functional transfers. Pt was able to tolerate aprox 3 minutes at a time before sitting due to fatigue. Standing pivot completed from the EOB to the recliner with Ethan and use of w/w. While seated in the recliner pt completed BUE towel exercises over all planes for 1 X 10 with min resistance to increase and restore maximum functional strength. Pt was left sitting upright in the recliner with call light in hand, tray table in place, and under nursing supervision. Continue with rec D/C plan to SNF. MUNIRA Castañeda/Zulma
--- NOTE | 2020-04-15 11:34 | NUR ---
PHYSICAL THERAPY Patient presented to therapy in supine with head of bed elevated and bed alarm on with report of no dizziness. Patient is in ICCU-10. Patient's vitals WNL.
--- NOTE | 2020-04-15 13:09 | NUR ---
SITTING UP IN CHAIR - DROWSY BUT AROUSES EASILY.. DOPAMINE AT 2MCG
--- NOTE | 2020-04-15 14:31 | NUR ---
OCCUPATIONAL THERAPY CO-SIGN I approve of the Occupational Therapy notes written above. MG PACK, OTR/L
--- NOTE | 2020-04-15 14:43 | NUR ---
PHYSICAL THERAPY CO-SIGN I approve of the Physical Therapy notes written above. LAURA WATERMAN PT,DPT
--- NOTE | 2020-04-15 22:00 | NUR ---
Patient up to bedside, denies any dizziness while standing. Once finished, patient got back in bed. Patient given night meds, was appreciative of the effexor given. Patient denies any problems at this time. Monitoring patient.
--- NOTE | 2020-04-15 23:47 | NUR ---
24 HR chart check completed.
[2020-04-16] VITALS: BP 105/56
[2020-04-16 04:00] VITALS: BP 114/70
[2020-04-16 06:15] LABS: BASO # 0.1 10*3/uL (0.0-0.1); BASO % 0.7 % (0.0-1.0); EOS # 0.5 10*3/uL (0.0-0.4); HEMATOCRIT 41.5 % (42.0-52.0); LYMPH # 1.7 10*3/uL (1.3-4.4); LYMPH % 25.5 % (27.0-41.0); MEAN CELL VOLUME 94.7 fl (80.0-94.0); MEAN CORPUSCULAR HGB 29.9 pg (27.0-31.0); MEAN CORPUSCULAR HGB CONC 31.6 g/dl (33.0-37.0); MEAN PLATELET VOLUME 11.4 fl (9.6-12.3); MONO # 0.7 10*3/uL (0.1-1.0); MONO % 10.2 % (3.0-9.0); NEUT # 3.8 10*3/uL (2.3-7.9); NEUT % 55.9 % (47.0-73.0); PLATELET COUNT AUTOMATED 142 10*3/uL (130-400); RED BLOOD COUNT 4.38 10*6/uL (4.50-5.90); WHITE BLOOD COUNT 6.7 10*3/uL (4.8-10.8)
[2020-04-16 06:17] LABS: ALBUMIN 2.9 gm/dl (3.1-4.5); ALKALINE PHOSPHATASE 70 U/L (45-117); BUN 15 mg/dl (7-24); CHLORIDE 113 mmol/L (98-107); CREATININE 1.08 mg/dL (0.70-1.30); POTASSIUM 3.6 mmol/L (3.5-5.1); SGOT/AST 19 IU/L (3-35); SGPT/ALT 19 U/L (12-78); SODIUM 144 mmol/L (136-145); TOTAL PROTEIN 6.1 gm/dL (6.4-8.2)
[2020-04-16 08:00] VITALS: BP 108/64
[2020-04-16] MEDS ORDERED: LYRICA100 M1 PO (10:12)
[2020-04-16] MEDS ORDERED: VENLAFAXINE HC100 MG PO (10:12)
--- NOTE | 2020-04-16 11:17 | NUR ---
PER PT HE DOES NOT AMBULATE MUCH - DISCUSSION WITH CARDIOLOGY ON 04/15/20 IF THE PATIENT WAS AMBULATORY AT HOME THEN THEY WOULD GET A HOLTER MONITOR BUT IF NOT THEN NO SENSE IN DOING IT. THE PATIENT STATES THAT HE DOESN'T WALK MUCH
[2020-04-16 12:00] VITALS: BP 118/64
--- NOTE | 2020-04-16 12:46 | NUR ---
DISCHARGE PICTURES TAKEN EXCEPT FOR THE SCROTUM THE PATIENT PREFERS NOT TO GET INTO BED..PREFERS NO PICTURE TAKEN OF HIS PERSONAL PARTS
--- NOTE | 2020-04-16 14:26 | NUR ---
PATIENT TO [facility] VIA [facility] - REPORT CALLED TO [facility] AT 1330.. IS AWARE OF TRANSFER
== END 2020-04-16 14:45 | disposition other institution (70) | DRG 640 ==
LOC: ED 20:32 → EDHOLD 23:54 → ICCU 23:54 → 5E 04-13 00:35 → EDHOLD 04-13 01:06 → ICCU 04-13 16:53
PROVIDERS: Family Medicine; Internal Medicine; Nurse Practitioner; Social Worker Clinical; Student in an Organized Health Care Education/Training Program; ADMIT Internal Medicine; ATTEND Internal Medicine
DX: E86.0 Dehydration (principal); N17.0 Acute kidney failure with tubular necrosis; L03.115 Cellulitis of right lower limb; E44.0 Moderate protein-calorie malnutrition; J98.11 Atelectasis; I95.9 Hypotension, unspecified; E87.2 Acidosis; E87.0 Hyperosmolality and hypernatremia; G20 Parkinson's disease; M19.90 Unspecified osteoarthritis, unspecified site; K21.9 Gastro-esophageal reflux disease without esophagitis; N18.31 Chronic kidney disease, stage 3a; G47.30 Sleep apnea, unspecified; D53.9 Nutritional anemia, unspecified; R00.1 Bradycardia, unspecified; F41.9 Anxiety disorder, unspecified; E87.8 Other disorders of electrolyte and fluid balance, not elsewhere classified; F32.9 Major depressive disorder, single episode, unspecified; K57.30 Diverticulosis of large intestine without perforation or abscess without bleeding; Z96.643 Presence of artificial hip joint, bilateral; I12.9 Hypertensive chronic kidney disease with stage 1 through stage 4 chronic kidney disease, or unspecified chronic kidney disease; Z68.39 Body mass index [BMI] 39.0-39.9, adult; Z88.8 Allergy status to other drugs, medicaments and biological substances; Z86.718 Personal history of other venous thrombosis and embolism; Z79.01 Long term (current) use of anticoagulants; Z79.899 Other long term (current) drug therapy; Z87.891 Personal history of nicotine dependence; Z82.49 Family history of ischemic heart disease and other diseases of the circulatory system; I25.2 Old myocardial infarction; Z20.828 Contact with and (suspected) exposure to other viral communicable diseases

== ENCOUNTER 2020-05-28 08:55 | Emergency (ER) | payer MEDICARE, OTHER ==
[~2020-05-28 08:55] MED LIST changes: +VENLAFAXINE HC100 MG PO
[2020-05-28 09:32] LABS: BASO % 0.6 % (0.0-1.0); EOS # 0.4 10*3/uL (0.0-0.4); EOS % 5.3 % (1.0-4.0); HEMATOCRIT 45.5 % (42.0-52.0); LYMPH # 0.9 10*3/uL (1.3-4.4); LYMPH % 13.4 % (27.0-41.0); MEAN CELL VOLUME 93.6 fl (80.0-94.0); MEAN CORPUSCULAR HGB 28.8 pg (27.0-31.0); MEAN CORPUSCULAR HGB CONC 30.8 g/dl (33.0-37.0); MEAN PLATELET VOLUME 10.2 fl (9.6-12.3); MONO # 0.7 10*3/uL (0.1-1.0); NEUT # 4.8 10*3/uL (2.3-7.9); NEUT % 70.3 % (47.0-73.0); PLATELET COUNT AUTOMATED 169 10*3/uL (130-400); RED BLOOD COUNT 4.86 10*6/uL (4.50-5.90); RED CELL DISTRI WIDTH 13.4 % (0-14.5); WHITE BLOOD COUNT 6.8 10*3/uL (4.8-10.8)
[2020-05-28 09:43] LABS: ACT PARTIAL THROMBO TIME 33.5 SECONDS (20.0-32.1); INTERNATIONAL NORM RATIO 1.2 (2.0-3.5)
[2020-05-28 09:50] LABS: ALBUMIN 3.5 gm/dl (3.1-4.5); ALKALINE PHOSPHATASE 85 U/L (45-117); BUN 13 mg/dl (7-24); CHLORIDE 107 mmol/L (98-107); CREATININE 0.96 mg/dL (0.70-1.30); POTASSIUM 3.7 mmol/L (3.5-5.1); SGOT/AST 9 IU/L (3-35); SGPT/ALT 7 U/L (12-78); SODIUM 141 mmol/L (136-145); TOTAL PROTEIN 6.9 gm/dL (6.4-8.2)
[2020-05-28 09:51] LABS: TROPONIN I < 0.015 ng/ml (<0.045)
[2020-05-28 09:59] VITALS: BP 120/69
[2020-05-28 09:59] LABS: BILIRUBIN Negative (Negative); BLOOD Negative (Negative); CLARITY Clear (Clear); COLOR Dark Yellow (Yellow); GLUCOSE Negative (Negative); KETONE Negative (Negative); LEUKO ESTERASE 2+ (Negative); NITRITE Negative (Negative); PH 6.5 (4.5-8.0); SPECIFIC GRAVITY 1.015 (1.001-1.030); UROBILINOGEN 0.2 E.U./dl (0.0-1.0)
[2020-05-28 10:06] LABS: WBC TNTC wbc/hpf (0-5)
[2020-05-28 10:08] LABS: BACTERIA 4+
[2020-05-28] MEDS ORDERED: CIPRO500 MG PO (10:46)
== END 2020-05-28 11:06 | disposition home or self-care (01) ==
LOC: ED 08:55
PROVIDERS: Emergency Medicine
DX: N39.0 Urinary tract infection, site not specified (principal); F32.9 Major depressive disorder, single episode, unspecified; K21.9 Gastro-esophageal reflux disease without esophagitis; M19.90 Unspecified osteoarthritis, unspecified site; G20 Parkinson's disease; Z86.718 Personal history of other venous thrombosis and embolism; I12.9 Hypertensive chronic kidney disease with stage 1 through stage 4 chronic kidney disease, or unspecified chronic kidney disease; N18.30 Chronic kidney disease, stage 3 unspecified; I25.2 Old myocardial infarction; Z88.8 Allergy status to other drugs, medicaments and biological substances; Z88.2 Allergy status to sulfonamides; Z79.899 Other long term (current) drug therapy; Z96.643 Presence of artificial hip joint, bilateral; Z98.890 Other specified postprocedural states; Z87.891 Personal history of nicotine dependence

== ENCOUNTER → 2020-11-02 | Outpatient (CLI) | payer MEDICARE, OTHER | LOC: WOUNDCARE 02:20 | PROVIDERS: ATTEND Nurse Practitioner | DX: I87.311 Chronic venous hypertension (idiopathic) with ulcer of right lower extremity (principal); L97.212 Non-pressure chronic ulcer of right calf with fat layer exposed; L03.115 Cellulitis of right lower limb; J44.9 Chronic obstructive pulmonary disease, unspecified; I25.2 Old myocardial infarction; K21.9 Gastro-esophageal reflux disease without esophagitis; E78.00 Pure hypercholesterolemia, unspecified; M62.82 Rhabdomyolysis; G20 Parkinson's disease; H54.61 Unqualified visual loss, right eye, normal vision left eye; Z87.891 Personal history of nicotine dependence; Z98.890 Other specified postprocedural states; Z79.899 Other long term (current) drug therapy ==

== ENCOUNTER → 2020-11-09 | Outpatient (CLI) | payer MEDICARE, OTHER | LOC: WOUNDCARE 00:55 | PROVIDERS: ATTEND Nurse Practitioner | DX: I87.311 Chronic venous hypertension (idiopathic) with ulcer of right lower extremity (principal); L97.212 Non-pressure chronic ulcer of right calf with fat layer exposed; L03.115 Cellulitis of right lower limb; I10 Essential (primary) hypertension; J44.9 Chronic obstructive pulmonary disease, unspecified; E78.00 Pure hypercholesterolemia, unspecified; I25.2 Old myocardial infarction; K21.9 Gastro-esophageal reflux disease without esophagitis; H54.61 Unqualified visual loss, right eye, normal vision left eye; G20 Parkinson's disease; M62.82 Rhabdomyolysis; F32.9 Major depressive disorder, single episode, unspecified; Z86.718 Personal history of other venous thrombosis and embolism; Z98.890 Other specified postprocedural states; Z87.891 Personal history of nicotine dependence; Z72.89 Other problems related to lifestyle ==

== ENCOUNTER → 2020-11-17 | Outpatient (CLI) | payer MEDICARE, OTHER | LOC: WOUNDCARE 01:57 | PROVIDERS: ATTEND Nurse Practitioner | DX: I87.311 Chronic venous hypertension (idiopathic) with ulcer of right lower extremity (principal); L97.212 Non-pressure chronic ulcer of right calf with fat layer exposed; L03.115 Cellulitis of right lower limb; I10 Essential (primary) hypertension; J44.9 Chronic obstructive pulmonary disease, unspecified; E78.00 Pure hypercholesterolemia, unspecified; I25.2 Old myocardial infarction; H54.61 Unqualified visual loss, right eye, normal vision left eye; G20 Parkinson's disease; M62.82 Rhabdomyolysis; F32.9 Major depressive disorder, single episode, unspecified; Z86.718 Personal history of other venous thrombosis and embolism; Z98.890 Other specified postprocedural states; Z87.891 Personal history of nicotine dependence; Z72.89 Other problems related to lifestyle ==

== ENCOUNTER → 2020-12-16 | Outpatient (CLI) | payer MEDICARE, OTHER | LOC: WOUNDCARE 11:17 | PROVIDERS: ATTEND Nurse Practitioner | DX: I87.311 Chronic venous hypertension (idiopathic) with ulcer of right lower extremity (principal); L97.212 Non-pressure chronic ulcer of right calf with fat layer exposed; L97.812 Non-pressure chronic ulcer of other part of right lower leg with fat layer exposed; L03.115 Cellulitis of right lower limb; I10 Essential (primary) hypertension; J44.9 Chronic obstructive pulmonary disease, unspecified; E78.00 Pure hypercholesterolemia, unspecified; I25.2 Old myocardial infarction; H54.61 Unqualified visual loss, right eye, normal vision left eye; G20 Parkinson's disease; M62.82 Rhabdomyolysis; F32.9 Major depressive disorder, single episode, unspecified; Z86.718 Personal history of other venous thrombosis and embolism; Z98.890 Other specified postprocedural states; Z87.891 Personal history of nicotine dependence; Z72.89 Other problems related to lifestyle ==

== ENCOUNTER → 2020-12-22 | Outpatient (CLI) | payer MEDICARE, OTHER | LOC: WOUNDCARE 00:38 | PROVIDERS: ATTEND Nurse Practitioner | DX: I87.311 Chronic venous hypertension (idiopathic) with ulcer of right lower extremity (principal); L97.812 Non-pressure chronic ulcer of other part of right lower leg with fat layer exposed; L97.212 Non-pressure chronic ulcer of right calf with fat layer exposed; L03.115 Cellulitis of right lower limb; I10 Essential (primary) hypertension; J44.9 Chronic obstructive pulmonary disease, unspecified; E78.00 Pure hypercholesterolemia, unspecified; I25.2 Old myocardial infarction; H54.61 Unqualified visual loss, right eye, normal vision left eye; G20 Parkinson's disease; M62.82 Rhabdomyolysis; F32.9 Major depressive disorder, single episode, unspecified; Z86.718 Personal history of other venous thrombosis and embolism; Z98.890 Other specified postprocedural states; Z79.891 Long term (current) use of opiate analgesic; Z72.89 Other problems related to lifestyle ==

== ENCOUNTER → 2020-12-29 | Outpatient (CLI) | payer MEDICARE, OTHER | LOC: WOUNDCARE 00:24 | PROVIDERS: ATTEND Nurse Practitioner | DX: I87.311 Chronic venous hypertension (idiopathic) with ulcer of right lower extremity (principal); L97.812 Non-pressure chronic ulcer of other part of right lower leg with fat layer exposed; L97.212 Non-pressure chronic ulcer of right calf with fat layer exposed; L03.115 Cellulitis of right lower limb; I10 Essential (primary) hypertension; J44.9 Chronic obstructive pulmonary disease, unspecified; E78.00 Pure hypercholesterolemia, unspecified; I25.2 Old myocardial infarction; H54.61 Unqualified visual loss, right eye, normal vision left eye; G20 Parkinson's disease; M62.82 Rhabdomyolysis; F32.9 Major depressive disorder, single episode, unspecified; Z86.718 Personal history of other venous thrombosis and embolism; Z98.890 Other specified postprocedural states; Z79.891 Long term (current) use of opiate analgesic; Z72.89 Other problems related to lifestyle ==

== ENCOUNTER → 2021-01-06 | Outpatient (CLI) | payer MEDICARE, OTHER | LOC: WOUNDCARE 00:45 | PROVIDERS: ATTEND Nurse Practitioner | DX: I87.311 Chronic venous hypertension (idiopathic) with ulcer of right lower extremity (principal); L97.812 Non-pressure chronic ulcer of other part of right lower leg with fat layer exposed; L97.212 Non-pressure chronic ulcer of right calf with fat layer exposed; L03.115 Cellulitis of right lower limb; I10 Essential (primary) hypertension; J44.9 Chronic obstructive pulmonary disease, unspecified; E78.00 Pure hypercholesterolemia, unspecified; I25.2 Old myocardial infarction; H54.61 Unqualified visual loss, right eye, normal vision left eye; G20 Parkinson's disease; M62.82 Rhabdomyolysis; F32.9 Major depressive disorder, single episode, unspecified; Z86.718 Personal history of other venous thrombosis and embolism; Z98.890 Other specified postprocedural states; Z79.891 Long term (current) use of opiate analgesic; Z72.89 Other problems related to lifestyle ==

== ENCOUNTER → 2021-01-13 | Outpatient (CLI) | payer MEDICARE, OTHER ==
[~2021-01-13] MED LIST changes: +LASIX40 MG PO; +OMNICEF300 MG PO; +XARELTO15 M1 PO
== END ==
LOC: WOUNDCARE 01:01
PROVIDERS: ATTEND Nurse Practitioner
DX: I87.311 Chronic venous hypertension (idiopathic) with ulcer of right lower extremity (principal); L97.812 Non-pressure chronic ulcer of other part of right lower leg with fat layer exposed; L97.212 Non-pressure chronic ulcer of right calf with fat layer exposed; L03.115 Cellulitis of right lower limb; I10 Essential (primary) hypertension; J44.9 Chronic obstructive pulmonary disease, unspecified; E78.00 Pure hypercholesterolemia, unspecified; I25.2 Old myocardial infarction; H54.61 Unqualified visual loss, right eye, normal vision left eye; G20 Parkinson's disease; M62.82 Rhabdomyolysis; F32.9 Major depressive disorder, single episode, unspecified; Z86.718 Personal history of other venous thrombosis and embolism; Z98.890 Other specified postprocedural states; Z79.891 Long term (current) use of opiate analgesic

== ENCOUNTER → 2021-01-19 | Outpatient (CLI) | payer MEDICARE, OTHER | LOC: WOUNDCARE 00:45 | PROVIDERS: ATTEND Nurse Practitioner | DX: I87.311 Chronic venous hypertension (idiopathic) with ulcer of right lower extremity (principal); L97.812 Non-pressure chronic ulcer of other part of right lower leg with fat layer exposed; L97.212 Non-pressure chronic ulcer of right calf with fat layer exposed; L03.115 Cellulitis of right lower limb; I10 Essential (primary) hypertension; J44.9 Chronic obstructive pulmonary disease, unspecified; E78.00 Pure hypercholesterolemia, unspecified; I25.2 Old myocardial infarction; H54.61 Unqualified visual loss, right eye, normal vision left eye; G20 Parkinson's disease; M62.82 Rhabdomyolysis; F32.9 Major depressive disorder, single episode, unspecified; Z86.718 Personal history of other venous thrombosis and embolism; Z98.890 Other specified postprocedural states; Z79.891 Long term (current) use of opiate analgesic ==

== ENCOUNTER 2021-01-26 07:59 | Inpatient (IN) | payer MEDICARE, OTHER ==
[~2021-01-26] VITALS: Ht 183 cm; Wt 158.0 kg
[2021-01-26] VITALS (7 sets, daily range): BP systolic 94–138; BP diastolic 53–75
[~2021-01-26 07:59] MED LIST changes: -LASIX40 MG PO; -OMNICEF300 MG PO; -XARELTO15 M1 PO
[2021-01-26 08:40] LABS: HEMATOCRIT 41.8 % (42.0-52.0); MEAN CELL VOLUME 91.1 fl (80.0-94.0); MEAN CORPUSCULAR HGB 28.3 pg (27.0-31.0); MEAN CORPUSCULAR HGB CONC 31.1 g/dl (33.0-37.0); MEAN PLATELET VOLUME 11.7 fl (9.6-12.3); PLATELET COUNT AUTOMATED 138 10*3/uL (130-400); RED BLOOD COUNT 4.59 10*6/uL (4.50-5.90); RED CELL DISTRI WIDTH 14.8 % (0-14.5); WHITE BLOOD COUNT 14.8 10*3/uL (4.8-10.8)
[2021-01-26 08:56] LABS: ALBUMIN 2.9 gm/dl (3.1-4.5); CREATININE 1.5 mg/dL (0.70-1.30); POTASSIUM 3.8 mmol/L (3.5-5.1); TOTAL PROTEIN 6.5 gm/dL (6.4-8.2)
[2021-01-26 08:59] LABS: TOTAL CELLS COUNTED 100 #CELLS
[2021-01-26 09:00] LABS: MICROCYTOSIS SLIGHT; PLATELET SUFFICIENCY NORMAL (NORMAL); POLYCHROMASIA SLIGHT
[2021-01-26 11:51] LABS: BILIRUBIN 1+ (Negative); BLOOD Negative (Negative); CLARITY Cloudy (Clear); COLOR Dark Yellow (Yellow); GLUCOSE Negative (Negative); KETONE Trace (Negative); LEUKO ESTERASE 3+ (Negative); NITRITE Positive (Negative)
[2021-01-26 11:56] LABS: WBC TNTC wbc/hpf (0-5)
[2021-01-26 11:57] LABS: BACTERIA TRACE; RBC 0-2 rbc/hpf (0-2)
[2021-01-27] VITALS: BP 122/69
[2021-01-27 03:56] VITALS: BP 112/65
[2021-01-27 06:04] LABS: ALBUMIN 2.7 gm/dl (3.1-4.5); CREATININE 1.56 mg/dL (0.70-1.30); POTASSIUM 3.7 mmol/L (3.5-5.1); TOTAL PROTEIN 6.4 gm/dL (6.4-8.2)
[2021-01-27 06:25] LABS: BASO # 0.1 10*3/uL (0.0-0.1); BASO % 0.5 % (0.0-1.0); EOS # 0.3 10*3/uL (0.0-0.4); HEMATOCRIT 41.8 % (42.0-52.0); LYMPH # 1.1 10*3/uL (1.3-4.4); MEAN CELL VOLUME 92.7 fl (80.0-94.0); MEAN CORPUSCULAR HGB 28.8 pg (27.0-31.0); MEAN CORPUSCULAR HGB CONC 31.1 g/dl (33.0-37.0); MEAN PLATELET VOLUME 11.9 fl (9.6-12.3); MONO # 1.2 10*3/uL (0.1-1.0); MONO % 12.4 % (3.0-9.0); NEUT # 6.6 10*3/uL (2.3-7.9); NEUT % 71.2 % (47.0-73.0); PLATELET COUNT AUTOMATED 120 10*3/uL (130-400); RED BLOOD COUNT 4.51 10*6/uL (4.50-5.90); RED CELL DISTRI WIDTH 14.7 % (0-14.5); WHITE BLOOD COUNT 9.3 10*3/uL (4.8-10.8)
[2021-01-27 08:00] VITALS: BP 136/77
[2021-01-27 12:00] VITALS: BP 129/77
[2021-01-27 16:00] VITALS: BP 122/79
[2021-01-27 20:00] VITALS: BP 122/79
[2021-01-28] VITALS: BP 154/84
[2021-01-28 02:45] VITALS: BP 122/69
[2021-01-28 08:00] VITALS: BP 109/53
[2021-01-28 08:38] LABS: BASO % 0.5 % (0.0-1.0); EOS # 0.5 10*3/uL (0.0-0.4); EOS % 7.9 % (1.0-4.0); HEMATOCRIT 39.8 % (42.0-52.0); LYMPH % 14.7 % (27.0-41.0); MEAN CORPUSCULAR HGB 28.7 pg (27.0-31.0); MEAN CORPUSCULAR HGB CONC 30.9 g/dl (33.0-37.0); MEAN PLATELET VOLUME 11.6 fl (9.6-12.3); NEUT # 3.9 10*3/uL (2.3-7.9); NEUT % 60.7 % (47.0-73.0); PLATELET COUNT AUTOMATED 145 10*3/uL (130-400); RED BLOOD COUNT 4.28 10*6/uL (4.50-5.90); RED CELL DISTRI WIDTH 14.5 % (0-14.5); WHITE BLOOD COUNT 6.5 10*3/uL (4.8-10.8)
[2021-01-28 08:52] LABS: ALBUMIN 2.8 gm/dl (3.1-4.5); ALKALINE PHOSPHATASE 61 U/L (45-117); BUN 20 mg/dl (7-24); CHLORIDE 108 mmol/L (98-107); POTASSIUM 3.6 mmol/L (3.5-5.1); SGOT/AST 24 IU/L (3-35); SGPT/ALT 19 U/L (12-78); SODIUM 141 mmol/L (136-145); TOTAL PROTEIN 6.6 gm/dL (6.4-8.2)
[2021-01-28 12:00] VITALS: BP 114/58
[2021-01-28 16:00] VITALS: BP 119/62
[2021-01-28 20:00] VITALS: BP 126/86
[2021-01-29] VITALS: BP 119/68
[2021-01-29 08:00] VITALS: BP 121/71
[2021-01-29 08:35] LABS: BASO % 0.8 % (0.0-1.0); EOS # 0.4 10*3/uL (0.0-0.4); EOS % 8.1 % (1.0-4.0); HEMATOCRIT 45.6 % (42.0-52.0); LYMPH % 19.7 % (27.0-41.0); MEAN CELL VOLUME 93.4 fl (80.0-94.0); MEAN CORPUSCULAR HGB 28.5 pg (27.0-31.0); MEAN CORPUSCULAR HGB CONC 30.5 g/dl (33.0-37.0); MEAN PLATELET VOLUME 11.6 fl (9.6-12.3); MONO # 0.7 10*3/uL (0.1-1.0); MONO % 13.9 % (3.0-9.0); NEUT # 2.9 10*3/uL (2.3-7.9); NEUT % 56.3 % (47.0-73.0); PLATELET COUNT AUTOMATED 167 10*3/uL (130-400); RED BLOOD COUNT 4.88 10*6/uL (4.50-5.90); RED CELL DISTRI WIDTH 14.3 % (0-14.5); WHITE BLOOD COUNT 5.2 10*3/uL (4.8-10.8)
[2021-01-29 08:46] LABS: CREATININE 1.46 mg/dL (0.70-1.30); POTASSIUM 3.9 mmol/L (3.5-5.1)
[2021-01-29] MEDS ORDERED: XARELTO15 M1 PO (10:04)
[2021-01-29] MEDS ORDERED: OMNICEF300 MG PO (10:06)
[2021-01-29 12:00] VITALS: BP 134/52
[2021-01-29] MEDS ORDERED: LASIX40 MG PO (13:05)
== END 2021-01-29 16:10 | disposition home health service (06) | DRG 871 ==
LOC: ED 07:59 → EDHOLD 12:09 → 4E 01-28 02:01
PROVIDERS: Social Worker Clinical; Student in an Organized Health Care Education/Training Program; ADMIT Internal Medicine; ATTEND Internal Medicine
DX: A41.9 Sepsis, unspecified organism (principal); N17.0 Acute kidney failure with tubular necrosis; N30.00 Acute cystitis without hematuria; E44.0 Moderate protein-calorie malnutrition; I13.0 Hypertensive heart and chronic kidney disease with heart failure and stage 1 through stage 4 chronic kidney disease, or unspecified chronic kidney disease; I50.30 Unspecified diastolic (congestive) heart failure; F33.9 Major depressive disorder, recurrent, unspecified; Z68.42 Body mass index [BMI] 45.0-49.9, adult; G20 Parkinson's disease; K57.90 Diverticulosis of intestine, part unspecified, without perforation or abscess without bleeding; N18.31 Chronic kidney disease, stage 3a; Z20.822 Contact with and (suspected) exposure to COVID-19; E66.01 Morbid (severe) obesity due to excess calories; I87.2 Venous insufficiency (chronic) (peripheral); G62.9 Polyneuropathy, unspecified; I25.10 Atherosclerotic heart disease of native coronary artery without angina pectoris; K21.9 Gastro-esophageal reflux disease without esophagitis; G47.33 Obstructive sleep apnea (adult) (pediatric); M19.90 Unspecified osteoarthritis, unspecified site; D64.9 Anemia, unspecified; R73.9 Hyperglycemia, unspecified; R65.20 Severe sepsis without septic shock; B96.1 Klebsiella pneumoniae [K. pneumoniae] as the cause of diseases classified elsewhere; Z87.891 Personal history of nicotine dependence; Z79.899 Other long term (current) drug therapy; Z88.2 Allergy status to sulfonamides; Z88.8 Allergy status to other drugs, medicaments and biological substances

== ENCOUNTER → 2021-02-13 | Outpatient (CLI) | payer MEDICARE, OTHER ==
[~2021-02-13] MED LIST changes: +LASIX40 MG PO; +OMNICEF300 MG PO; +XARELTO15 M1 PO
== END ==
LOC: WOUNDCARE 09:30
PROVIDERS: ATTEND Nurse Practitioner Family
DX: I87.311 Chronic venous hypertension (idiopathic) with ulcer of right lower extremity (principal); L97.812 Non-pressure chronic ulcer of other part of right lower leg with fat layer exposed; L97.212 Non-pressure chronic ulcer of right calf with fat layer exposed; L03.115 Cellulitis of right lower limb; I10 Essential (primary) hypertension; J44.9 Chronic obstructive pulmonary disease, unspecified; E78.00 Pure hypercholesterolemia, unspecified; I25.2 Old myocardial infarction; H54.61 Unqualified visual loss, right eye, normal vision left eye; G20 Parkinson's disease; M62.82 Rhabdomyolysis; F32.9 Major depressive disorder, single episode, unspecified; Z86.718 Personal history of other venous thrombosis and embolism; Z98.890 Other specified postprocedural states; Z79.891 Long term (current) use of opiate analgesic

== ENCOUNTER → 2021-02-20 | Outpatient (CLI) | payer MEDICARE, OTHER | LOC: WOUNDCARE 00:58 | PROVIDERS: ATTEND Nurse Practitioner Family | DX: I87.311 Chronic venous hypertension (idiopathic) with ulcer of right lower extremity (principal); L97.812 Non-pressure chronic ulcer of other part of right lower leg with fat layer exposed; L97.212 Non-pressure chronic ulcer of right calf with fat layer exposed; L03.115 Cellulitis of right lower limb; I10 Essential (primary) hypertension; J44.9 Chronic obstructive pulmonary disease, unspecified; E78.00 Pure hypercholesterolemia, unspecified; I25.2 Old myocardial infarction; H54.61 Unqualified visual loss, right eye, normal vision left eye; G20 Parkinson's disease; M62.82 Rhabdomyolysis; F32.9 Major depressive disorder, single episode, unspecified; Z86.718 Personal history of other venous thrombosis and embolism; Z98.890 Other specified postprocedural states; Z79.891 Long term (current) use of opiate analgesic ==

== ENCOUNTER → 2021-02-27 | Outpatient (CLI) | payer MEDICARE, OTHER | LOC: WOUNDCARE 00:22 | PROVIDERS: ATTEND Nurse Practitioner Family | DX: I87.311 Chronic venous hypertension (idiopathic) with ulcer of right lower extremity (principal); L97.812 Non-pressure chronic ulcer of other part of right lower leg with fat layer exposed; L97.212 Non-pressure chronic ulcer of right calf with fat layer exposed; L03.115 Cellulitis of right lower limb; I11.0 Hypertensive heart disease with heart failure; J44.9 Chronic obstructive pulmonary disease, unspecified; E78.00 Pure hypercholesterolemia, unspecified; I25.2 Old myocardial infarction; H54.61 Unqualified visual loss, right eye, normal vision left eye; G20 Parkinson's disease; M62.82 Rhabdomyolysis; F32.9 Major depressive disorder, single episode, unspecified; Z86.718 Personal history of other venous thrombosis and embolism; Z98.890 Other specified postprocedural states; Z79.891 Long term (current) use of opiate analgesic ==

== ENCOUNTER → 2021-03-06 | Outpatient (CLI) | payer MEDICARE, OTHER | LOC: WOUNDCARE 02:06 | PROVIDERS: ATTEND Nurse Practitioner Family | DX: I87.311 Chronic venous hypertension (idiopathic) with ulcer of right lower extremity (principal); L97.812 Non-pressure chronic ulcer of other part of right lower leg with fat layer exposed; L97.212 Non-pressure chronic ulcer of right calf with fat layer exposed; L03.115 Cellulitis of right lower limb; I11.0 Hypertensive heart disease with heart failure; I25.2 Old myocardial infarction; J44.9 Chronic obstructive pulmonary disease, unspecified; E78.00 Pure hypercholesterolemia, unspecified; H54.61 Unqualified visual loss, right eye, normal vision left eye; G20 Parkinson's disease; M62.82 Rhabdomyolysis; F32.9 Major depressive disorder, single episode, unspecified; Z86.718 Personal history of other venous thrombosis and embolism; Z98.890 Other specified postprocedural states; Z79.891 Long term (current) use of opiate analgesic ==

== ENCOUNTER → 2021-03-13 | Outpatient (CLI) | payer MEDICARE, OTHER | LOC: WOUNDCARE 01:34 | PROVIDERS: ATTEND Nurse Practitioner Family | DX: I87.331 Chronic venous hypertension (idiopathic) with ulcer and inflammation of right lower extremity (principal); L97.818 Non-pressure chronic ulcer of other part of right lower leg with other specified severity; L97.212 Non-pressure chronic ulcer of right calf with fat layer exposed; L03.115 Cellulitis of right lower limb; I11.0 Hypertensive heart disease with heart failure; I25.2 Old myocardial infarction; J44.9 Chronic obstructive pulmonary disease, unspecified; E78.00 Pure hypercholesterolemia, unspecified; H54.61 Unqualified visual loss, right eye, normal vision left eye; G20 Parkinson's disease; M62.82 Rhabdomyolysis; F32.9 Major depressive disorder, single episode, unspecified; Z86.718 Personal history of other venous thrombosis and embolism; Z98.890 Other specified postprocedural states; Z79.891 Long term (current) use of opiate analgesic ==

== ENCOUNTER 2021-09-06 19:10 | Inpatient (IN) | payer MEDICARE, OTHER ==
[~2021-09-06] VITALS: Ht 182.8 cm; Wt 154.2 kg
[2021-09-06 19:13] VITALS: BP 135/64
[2021-09-06 20:52] VITALS: BP 125/71
[2021-09-06 21:01] LABS: BASO % 0.3 % (0.0-1.0); EOS # 0.1 10*3/uL (0.0-0.4); EOS % 1.3 % (1.0-4.0); HEMATOCRIT 46.8 % (42.0-52.0); LYMPH # 1.1 10*3/uL (1.3-4.4); LYMPH % 11.6 % (27.0-41.0); MEAN CELL VOLUME 91.6 fl (80.0-94.0); MEAN CORPUSCULAR HGB 29.2 pg (27.0-31.0); MEAN CORPUSCULAR HGB CONC 31.8 g/dl (33.0-37.0); MEAN PLATELET VOLUME 11.8 fl (9.6-12.3); MONO # 1.2 10*3/uL (0.1-1.0); MONO % 12.7 % (3.0-9.0); NEUT # 6.8 10*3/uL (2.3-7.9); NEUT % 73.8 % (47.0-73.0); PLATELET COUNT AUTOMATED 145 10*3/uL (130-400); RED BLOOD COUNT 5.11 10*6/uL (4.50-5.90); WHITE BLOOD COUNT 9.3 10*3/uL (4.8-10.8)
[2021-09-06 21:17] LABS: ALKALINE PHOSPHATASE 65 U/L (45-117); BUN 12 mg/dl (7-24); CHLORIDE 106 mmol/L (98-107); CREATININE 1.32 mg/dL (0.70-1.30); SGOT/AST 17 IU/L (3-35); SGPT/ALT 18 U/L (12-78); SODIUM 138 mmol/L (136-145); TOTAL PROTEIN 6.7 gm/dL (6.4-8.2)
[2021-09-06 21:50] LABS: BILIRUBIN Negative (Negative); BLOOD Negative (Negative); CLARITY Clear (Clear); COLOR Yellow (Yellow); GLUCOSE Negative (Negative); KETONE Negative (Negative); LEUKO ESTERASE Negative (Negative); NITRITE Negative (Negative); UROBILINOGEN 0.2 E.U./dl (0.0-1.0)
[2021-09-06 21:55] VITALS: BP 127/68
[2021-09-06 21:58] LABS: BACTERIA TRACE; HYALINE CAST 0-2; WBC 0-2 wbc/hpf (0-5)
[2021-09-07 03:43] VITALS: BP 119/56
[2021-09-07 06:19] LABS: CHLORIDE 109 mmol/L (98-107); POTASSIUM 3.6 mmol/L (3.5-5.1); SODIUM 139 mmol/L (136-145)
[2021-09-07 06:23] LABS: BUN 12 mg/dl (7-24); CHOLESTEROL 90 mg/dL (<200); CREATININE 1.27 mg/dL (0.70-1.30); LDL CHOLESTEROL 40 mg/dL (9-159); TRIGLYCERIDES 102 mg/dl (<150)
[2021-09-07 06:36] LABS: BASO % 0.6 % (0.0-1.0); EOS # 0.2 10*3/uL (0.0-0.4); EOS % 2.2 % (1.0-4.0); HEMATOCRIT 44.5 % (42.0-52.0); LYMPH # 1.1 10*3/uL (1.3-4.4); LYMPH % 15.5 % (27.0-41.0); MEAN CELL VOLUME 91.6 fl (80.0-94.0); MEAN CORPUSCULAR HGB 29.2 pg (27.0-31.0); MEAN CORPUSCULAR HGB CONC 31.9 g/dl (33.0-37.0); MEAN PLATELET VOLUME 11.4 fl (9.6-12.3); MONO % 13.6 % (3.0-9.0); NEUT # 4.7 10*3/uL (2.3-7.9); PLATELET COUNT AUTOMATED 142 10*3/uL (130-400); RED BLOOD COUNT 4.86 10*6/uL (4.50-5.90); RED CELL DISTRI WIDTH 14.1 % (0-14.5)
[2021-09-07 06:47] VITALS: BP 127/66
[2021-09-07 07:43] VITALS: BP 120/64
[2021-09-07 08:21] LABS: VITAMIN D, 25-HYDROXY 40.9 ng/mL (30-100)
[2021-09-07 10:05] VITALS: BP 115/91
[2021-09-07] MEDS ORDERED: VESICARE10 MG PO (12:38)
[2021-09-07] MEDS ORDERED: LOSARTAN POTASS50 M1 PO (12:41)
[2021-09-07] MEDS ORDERED: PREGABALIN100 MG PO (12:41)
[2021-09-07 16:00] VITALS: BP 121/53
[2021-09-07 20:00] VITALS: BP 139/61
[2021-09-08] VITALS: BP 136/74
[2021-09-08 05:57] LABS: BUN 13 mg/dl (7-24); CHLORIDE 111 mmol/L (98-107); CREATININE 1.26 mg/dL (0.70-1.30); POTASSIUM 4.2 mmol/L (3.5-5.1); SODIUM 142 mmol/L (136-145)
[2021-09-08 06:16] LABS: BASO # 0.1 10*3/uL (0.0-0.1); EOS # 0.4 10*3/uL (0.0-0.4); EOS % 6.9 % (1.0-4.0); HEMATOCRIT 46.4 % (42.0-52.0); LYMPH # 1.1 10*3/uL (1.3-4.4); LYMPH % 21.3 % (27.0-41.0); MEAN CELL VOLUME 93.5 fl (80.0-94.0); MEAN CORPUSCULAR HGB 29.4 pg (27.0-31.0); MEAN CORPUSCULAR HGB CONC 31.5 g/dl (33.0-37.0); MEAN PLATELET VOLUME 11.5 fl (9.6-12.3); MONO # 0.9 10*3/uL (0.1-1.0); MONO % 17.3 % (3.0-9.0); NEUT # 2.7 10*3/uL (2.3-7.9); NEUT % 53.1 % (47.0-73.0); PLATELET COUNT AUTOMATED 144 10*3/uL (130-400); RED BLOOD COUNT 4.96 10*6/uL (4.50-5.90); WHITE BLOOD COUNT 5.1 10*3/uL (4.8-10.8)
[2021-09-08 08:00] VITALS: BP 125/72
[2021-09-08 12:00] VITALS: BP 153/73
[2021-09-08 16:00] VITALS: BP 108/57
[2021-09-08 20:00] VITALS: BP 124/72
[2021-09-09] VITALS: BP 127/69
[2021-09-09 06:06] LABS: BUN 15 mg/dl (7-24); CHLORIDE 111 mmol/L (98-107); CPK 188 U/L (39-308); CREATININE 1.19 mg/dL (0.70-1.30); POTASSIUM 3.9 mmol/L (3.5-5.1); SODIUM 141 mmol/L (136-145)
[2021-09-09 06:11] LABS: BASO # 0.1 10*3/uL (0.0-0.1); BASO % 0.9 % (0.0-1.0); EOS # 0.5 10*3/uL (0.0-0.4); HEMATOCRIT 45.6 % (42.0-52.0); LYMPH # 1.5 10*3/uL (1.3-4.4); LYMPH % 26.2 % (27.0-41.0); MEAN CELL VOLUME 92.5 fl (80.0-94.0); MEAN CORPUSCULAR HGB CONC 31.4 g/dl (33.0-37.0); MEAN PLATELET VOLUME 11.8 fl (9.6-12.3); MONO % 17.2 % (3.0-9.0); NEUT # 2.7 10*3/uL (2.3-7.9); NEUT % 47.2 % (47.0-73.0); PLATELET COUNT AUTOMATED 174 10*3/uL (130-400); RED BLOOD COUNT 4.93 10*6/uL (4.50-5.90); RED CELL DISTRI WIDTH 14.2 % (0-14.5); WHITE BLOOD COUNT 5.8 10*3/uL (4.8-10.8)
[2021-09-09 08:00] VITALS: BP 122/72
[2021-09-09 12:00] VITALS: BP 122/59
[2021-09-09 16:00] VITALS: BP 137/59
[2021-09-09 18:00] VITALS: BP 137/59
[2021-09-09 20:00] VITALS: BP 107/63
[2021-09-10] VITALS: BP 128/66
[2021-09-10 06:30] LABS: BASO # 0.1 10*3/uL (0.0-0.1); BASO % 0.8 % (0.0-1.0); EOS # 0.5 10*3/uL (0.0-0.4); EOS % 7.9 % (1.0-4.0); HEMATOCRIT 46.3 % (42.0-52.0); LYMPH # 1.6 10*3/uL (1.3-4.4); MEAN CELL VOLUME 92.6 fl (80.0-94.0); MEAN CORPUSCULAR HGB 29.6 pg (27.0-31.0); MEAN PLATELET VOLUME 11.9 fl (9.6-12.3); MONO # 0.9 10*3/uL (0.1-1.0); NEUT # 3.4 10*3/uL (2.3-7.9); PLATELET COUNT AUTOMATED 176 10*3/uL (130-400); RED CELL DISTRI WIDTH 14.2 % (0-14.5); WHITE BLOOD COUNT 6.6 10*3/uL (4.8-10.8)
[2021-09-10 06:41] LABS: BUN 14 mg/dl (7-24); CHLORIDE 109 mmol/L (98-107); CREATININE 1.16 mg/dL (0.70-1.30); POTASSIUM 3.9 mmol/L (3.5-5.1); SODIUM 140 mmol/L (136-145)
[2021-09-10 08:00] VITALS: BP 103/74
[2021-09-10 12:00] VITALS: BP 115/62
[2021-09-10] MEDS ORDERED: AUGMENTIN 875-875 MG PO (15:40)
[2021-09-10 16:00] VITALS: BP 113/57
[2021-09-10 20:00] VITALS: BP 118/63
[2021-09-11] VITALS: BP 111/60
[2021-09-11 08:00] VITALS: BP 122/65
[2021-09-11 12:00] VITALS: BP 128/62
== END 2021-09-11 16:15 | disposition home health service (06) | DRG 602 ==
LOC: ED 19:10 → 4E 09-07 01:21 → EDHOLD 09-07 01:21 → 5E 09-07 02:24 → EDHOLD 09-07 03:07 → 4E 09-07 09:43
PROVIDERS: Emergency Medicine; Hospitalist; Internal Medicine; ADMIT Internal Medicine; ATTEND Internal Medicine
DX: L03.115 Cellulitis of right lower limb (principal); N17.0 Acute kidney failure with tubular necrosis; I50.32 Chronic diastolic (congestive) heart failure; I13.0 Hypertensive heart and chronic kidney disease with heart failure and stage 1 through stage 4 chronic kidney disease, or unspecified chronic kidney disease; Z68.42 Body mass index [BMI] 45.0-49.9, adult; Z66 Do not resuscitate; G47.33 Obstructive sleep apnea (adult) (pediatric); Z20.822 Contact with and (suspected) exposure to COVID-19; Z96.643 Presence of artificial hip joint, bilateral; E83.41 Hypermagnesemia; I25.10 Atherosclerotic heart disease of native coronary artery without angina pectoris; T17.908A Unspecified foreign body in respiratory tract, part unspecified causing other injury, initial encounter; N18.31 Chronic kidney disease, stage 3a; K21.9 Gastro-esophageal reflux disease without esophagitis; G20 Parkinson's disease; F32.A Depression, unspecified; M15.9 Polyosteoarthritis, unspecified; G47.30 Sleep apnea, unspecified; G62.9 Polyneuropathy, unspecified; I87.2 Venous insufficiency (chronic) (peripheral); E66.01 Morbid (severe) obesity due to excess calories; E87.8 Other disorders of electrolyte and fluid balance, not elsewhere classified; Z88.2 Allergy status to sulfonamides; Z86.718 Personal history of other venous thrombosis and embolism; Z88.8 Allergy status to other drugs, medicaments and biological substances; Z87.891 Personal history of nicotine dependence; Z79.899 Other long term (current) drug therapy; Z82.49 Family history of ischemic heart disease and other diseases of the circulatory system; Y93.89 Activity, other specified; Y92.89 Other specified places as the place of occurrence of the external cause; Y99.8 Other external cause status

== ENCOUNTER 2022-08-03 16:17 | Emergency (ER) | payer MEDICARE, OTHER ==
[~2022-08-03] VITALS: Ht 182.9 cm; Wt 137.0 kg
[~2022-08-03 16:17] MED LIST changes: +AUGMENTIN 875-875 MG PO; +LOSARTAN POTASS50 M1 PO; +PREGABALIN100 MG PO; +VESICARE10 MG PO
[2022-08-03 16:24] VITALS: BP 118/45
[2022-08-03 17:08] LABS: BASO # 0.1 10*3/uL (0.0-0.1); BASO % 0.7 % (0.0-1.0); EOS # 0.4 10*3/uL (0.0-0.4); EOS % 6.1 % (1.0-4.0); HEMATOCRIT 46.5 % (42.0-52.0); LYMPH # 1.5 10*3/uL (1.3-4.4); LYMPH % 21.1 % (27.0-41.0); MEAN CELL VOLUME 92.1 fl (80.0-94.0); MEAN CORPUSCULAR HGB 30.1 pg (27.0-31.0); MEAN CORPUSCULAR HGB CONC 32.7 g/dl (33.0-37.0); MEAN PLATELET VOLUME 11.2 fl (9.6-12.3); MONO # 0.8 10*3/uL (0.1-1.0); NEUT # 4.2 10*3/uL (2.3-7.9); NEUT % 60.7 % (47.0-73.0); PLATELET COUNT AUTOMATED 159 10*3/uL (130-400); RED BLOOD COUNT 5.05 10*6/uL (4.50-5.90); RED CELL DISTRI WIDTH 13.5 % (0-14.5); WHITE BLOOD COUNT 6.9 10*3/uL (4.8-10.8)
[2022-08-03 17:23] LABS: ALKALINE PHOSPHATASE 75 U/L (46-116); BUN 11 mg/dl (9-23); CHLORIDE 109 mmol/L (98-107); POTASSIUM 3.7 mmol/L (3.4-5.1); SGPT/ALT 8 U/L (10-49); TOTAL PROTEIN 6.3 gm/dL (6.0-8.0)
[2022-08-03] MEDS ORDERED: VIBRAMYCIN100 MG PO (17:57)
== END 2022-08-03 18:05 | disposition home or self-care (01) ==
LOC: ED 16:17
PROVIDERS: Physician Assistant
DX: S81.801A Unspecified open wound, right lower leg, initial encounter (principal); Z88.8 Allergy status to other drugs, medicaments and biological substances; Z88.2 Allergy status to sulfonamides; Z79.899 Other long term (current) drug therapy; Z98.890 Other specified postprocedural states; Z87.891 Personal history of nicotine dependence; W22.03XA Walked into furniture, initial encounter; Y93.89 Activity, other specified; Y92.89 Other specified places as the place of occurrence of the external cause; Y99.8 Other external cause status

== ENCOUNTER → 2022-08-10 | Outpatient (CLI) | payer MEDICARE, OTHER ==
[~2022-08-10] MED LIST changes: +VIBRAMYCIN100 MG PO
[2022-08-10 15:44] LABS: BASO # 0.1 10*3/uL (0.0-0.1); BASO % 0.8 % (0.0-1.0); EOS # 0.5 10*3/uL (0.0-0.4); EOS % 7.5 % (1.0-4.0); HEMATOCRIT 46.8 % (42.0-52.0); LYMPH # 1.4 10*3/uL (1.3-4.4); LYMPH % 22.8 % (27.0-41.0); MEAN CELL VOLUME 92.5 fl (80.0-94.0); MEAN CORPUSCULAR HGB 29.6 pg (27.0-31.0); MEAN CORPUSCULAR HGB CONC 32.1 g/dl (33.0-37.0); MEAN PLATELET VOLUME 11.3 fl (9.6-12.3); MONO # 0.8 10*3/uL (0.1-1.0); MONO % 13.4 % (3.0-9.0); NEUT # 3.5 10*3/uL (2.3-7.9); PLATELET COUNT AUTOMATED 145 10*3/uL (130-400); RED BLOOD COUNT 5.06 10*6/uL (4.50-5.90); RED CELL DISTRI WIDTH 13.5 % (0-14.5); WHITE BLOOD COUNT 6.3 10*3/uL (4.8-10.8)
[2022-08-10 15:59] LABS: ACT PARTIAL THROMBO TIME 30.2 SECONDS (20.0-32.1); INTERNATIONAL NORM RATIO 1.1 (2.0-3.5)
[2022-08-10 16:07] LABS: BUN 16 mg/dl (9-23); CHLORIDE 108 mmol/L (98-107); POTASSIUM 4.1 mmol/L (3.4-5.1)
== END | disposition home or self-care (01) ==
LOC: LAB 08:05 → WOUNDCARE 08:05
PROVIDERS: ATTEND Surgery Vascular Surgery
DX: I87.311 Chronic venous hypertension (idiopathic) with ulcer of right lower extremity (principal); L97.212 Non-pressure chronic ulcer of right calf with fat layer exposed; I89.0 Lymphedema, not elsewhere classified; E78.00 Pure hypercholesterolemia, unspecified; G20 Parkinson's disease; I10 Essential (primary) hypertension; I25.2 Old myocardial infarction; A01.0 Typhoid fever; J44.9 Chronic obstructive pulmonary disease, unspecified; K21.9 Gastro-esophageal reflux disease without esophagitis; F32.9 Major depressive disorder, single episode, unspecified; Z87.891 Personal history of nicotine dependence; Z86.718 Personal history of other venous thrombosis and embolism

== ENCOUNTER → 2022-08-17 | Outpatient (CLI) | payer MEDICARE, OTHER | LOC: WOUNDCARE 00:23 | PROVIDERS: ATTEND Surgery Vascular Surgery | DX: I87.311 Chronic venous hypertension (idiopathic) with ulcer of right lower extremity (principal); L97.212 Non-pressure chronic ulcer of right calf with fat layer exposed; I89.0 Lymphedema, not elsewhere classified; E78.00 Pure hypercholesterolemia, unspecified; G20 Parkinson's disease; I10 Essential (primary) hypertension; I25.2 Old myocardial infarction; J44.9 Chronic obstructive pulmonary disease, unspecified; K21.9 Gastro-esophageal reflux disease without esophagitis; F32.A Depression, unspecified; Z86.718 Personal history of other venous thrombosis and embolism; Z87.891 Personal history of nicotine dependence ==

== ENCOUNTER → 2022-08-24 | Outpatient (CLI) | payer MEDICARE, OTHER | END | disposition home or self-care (01) | LOC: WOUNDCARE 01:24 | PROVIDERS: ATTEND Surgery Vascular Surgery | DX: I87.311 Chronic venous hypertension (idiopathic) with ulcer of right lower extremity (principal); L97.212 Non-pressure chronic ulcer of right calf with fat layer exposed; I89.0 Lymphedema, not elsewhere classified; G20 Parkinson's disease; I10 Essential (primary) hypertension; I25.2 Old myocardial infarction; E78.00 Pure hypercholesterolemia, unspecified; J44.9 Chronic obstructive pulmonary disease, unspecified; K21.9 Gastro-esophageal reflux disease without esophagitis; F32.9 Major depressive disorder, single episode, unspecified; Z86.718 Personal history of other venous thrombosis and embolism; Z87.891 Personal history of nicotine dependence ==

== ENCOUNTER → 2022-08-31 | Outpatient (CLI) | payer MEDICARE, OTHER | END | disposition home or self-care (01) | LOC: WOUNDCARE 00:49 | PROVIDERS: ATTEND Surgery Vascular Surgery | DX: I87.311 Chronic venous hypertension (idiopathic) with ulcer of right lower extremity (principal); L97.218 Non-pressure chronic ulcer of right calf with other specified severity; I89.0 Lymphedema, not elsewhere classified; E78.00 Pure hypercholesterolemia, unspecified; G20 Parkinson's disease; I10 Essential (primary) hypertension; I25.2 Old myocardial infarction; J44.9 Chronic obstructive pulmonary disease, unspecified; K21.9 Gastro-esophageal reflux disease without esophagitis; F32.9 Major depressive disorder, single episode, unspecified; Z86.718 Personal history of other venous thrombosis and embolism; Z87.891 Personal history of nicotine dependence ==

== ENCOUNTER 2023-05-09 11:47 | Emergency (ER) | payer MEDICARE, OTHER ==
[~2023-05-09] VITALS: Ht 182.8 cm; Wt 127.9 kg
[2023-05-09] VITALS (11 sets, daily range): BP systolic 51–127; BP diastolic 30–97
[2023-05-09 12:39] LABS: HEMATOCRIT 51.6 % (42.0-52.0); MEAN CORPUSCULAR HGB 29.1 pg (27.0-31.0); MEAN PLATELET VOLUME 12.2 fl (9.6-12.3); PLATELET COUNT AUTOMATED 340 10*3/uL (130-400); RED BLOOD COUNT 5.32 10*6/uL (4.50-5.90); WHITE BLOOD COUNT 17.3 10*3/uL (4.8-10.8)
[2023-05-09 12:40] LABS: MANUAL DIFF REFLEX YES
[2023-05-09 12:50] LABS: ACT PARTIAL THROMBO TIME 29.2 SECONDS (20.0-32.1)
[2023-05-09 13:10] LABS: ABG BASE EXCESS -2.1 mmol/L (-2.0-2.0); ARTERIAL BLOOD GAS PH 7.352 (7.35-7.45)
[2023-05-09 13:11] LABS: TOTAL PROTEIN 6.9 gm/dL (6.0-8.0)
[2023-05-09 13:18] LABS: PLATELET SUFFICIENCY NORMAL (NORMAL); TOTAL CELLS COUNTED 100 #CELLS
[2023-05-09] MEDS ORDERED: EXELON1 EAC1 TD (13:53)
[2023-05-09] MEDS ORDERED: AREXVY VIA120 MCG/0. IM (13:53)
[2023-05-09] MEDS ORDERED: ASPIRIN81 M1 PO (13:54)
[2023-05-09] MEDS ORDERED: XARELTO10 MG PO (13:54)
[2023-05-09] MEDS ORDERED: PLAVIX75 M1 PO (13:54)
[2023-05-09] MEDS ORDERED: MELATONIN5 M7 PO (13:54)
[2023-05-09] MEDS ORDERED: VENLAFAXINE HY150 MG PO (13:55)
[2023-05-09] MEDS ORDERED: SIMVASTATIN40 MG PO (13:55)
[2023-05-09] MEDS ORDERED: BUPROPION HYDR150 M3 PO (13:56)
[2023-05-09] MEDS ORDERED: SINEMET 25-1001 EACH PO (13:59)
[2023-05-09] MEDS ORDERED: LYRICA100 M1 PO (13:59)
[2023-05-09] MEDS ORDERED: MULTIPLE VITAM1 EAC1 PO (14:00)
[2023-05-09] MEDS ORDERED: COMTAN200 MG PO (14:00)
[2023-05-09] MEDS ORDERED: VESICARE10 MG PO (14:00)
[2023-05-09] MEDS ORDERED: FLOMAX0.4 MG PO (14:01)
[2023-05-09] MEDS ORDERED: SYMB80 INH (14:01)
[2023-05-09] MEDS ORDERED: LOSARTAN POTASS25 M1 PO (14:01)
[2023-05-09] MEDS ORDERED: OMEPRAZOLE MAGN20 MG PO (14:02)
[2023-05-09] MEDS ORDERED: VITAMIN D325 MCG PO (14:02)
[2023-05-09] MEDS ORDERED: GEMTESA75 MG PO (14:02)
[2023-05-09] MEDS ORDERED: ROXICODONE15 MG PO (14:03)
[2023-05-09] MEDS ORDERED: DIAZEPAM5 MG PO (14:04)
[2023-05-09] MEDS ORDERED: LORAZEPAM0.5 M1 PO (14:04)
[2023-05-09] MEDS ORDERED: PAIN RELIEVER650 MG PO (14:05)
[2023-05-09 17:03] LABS: BILIRUBIN 2+ (Negative); BLOOD Negative (Negative); CLARITY Clear (Clear); COLOR Dark Yellow (Yellow); GLUCOSE Negative (Negative); KETONE Trace (Negative); LEUKO ESTERASE 1+ (Negative); NITRITE Positive (Negative)
[2023-05-09 17:20] LABS: BACTERIA 2+; CALCIUM OXALATE CRYSTALS 1+; MUCOUS 1+
[2023-05-09 19:58] LABS: ARTERIAL BLOOD GAS PH 7.331 (7.35-7.45)
[2023-05-09 19:59] LABS: ABG BASE EXCESS -8.1 mmol/L (-2.0-2.0)
== END 2023-05-09 21:37 | disposition short-term general hospital (02) ==
LOC: ED 11:47 → EDHOLD 14:43 → ED 21:37
PROVIDERS: Internal Medicine
DX: R61 Generalized hyperhidrosis (principal); A41.9 Sepsis, unspecified organism; R65.21 Severe sepsis with septic shock; J96.00 Acute respiratory failure, unspecified whether with hypoxia or hypercapnia; K21.9 Gastro-esophageal reflux disease without esophagitis; F32.A Depression, unspecified; I25.2 Old myocardial infarction; J44.9 Chronic obstructive pulmonary disease, unspecified; Z88.8 Allergy status to other drugs, medicaments and biological substances; Z88.2 Allergy status to sulfonamides; Z98.890 Other specified postprocedural states; Z87.891 Personal history of nicotine dependence; Z20.822 Contact with and (suspected) exposure to COVID-19

== ENCOUNTER 2023-06-05 14:48 | Inpatient (IN) | payer OTHER, MEDICARE ==
[2023-06-05] VITALS (19 sets, daily range): BP systolic 71–120; BP diastolic 39–68
[~2023-06-05] VITALS: Ht 193 cm; Wt 118.8 kg
[~2023-06-05 14:48] MED LIST changes: +AREXVY VIA120 MCG/0. IM; +ASPIRIN81 M1 PO; +BUPROPION HYDR150 M3 PO; +DIAZEPAM5 MG PO; +EXELON1 EAC1 TD; +GEMTESA75 MG PO; +LORAZEPAM0.5 M1 PO; +LOSARTAN POTASS25 M1 PO; +MELATONIN5 M7 PO; +MULTIPLE VITAM1 EAC1 PO; +PAIN RELIEVER650 MG PO; +PLAVIX75 M1 PO; +ROXICODONE15 MG PO; +SIMVASTATIN40 MG PO; +SYMB80 INH; +VENLAFAXINE HY150 MG PO; +VITAMIN D325 MCG PO
[2023-06-05] MEDS ORDERED: SENNA PLUS 8.61 EACH PO (15:06)
[2023-06-05] MEDS ORDERED: DAPTOMYCIN1000 MG/10 IV (15:07)
[2023-06-05] MEDS ORDERED: DEPAKOTE125 M1 PO (15:08)
[2023-06-05] MEDS ORDERED: SODIUM CHLORIDE 0.9% 1,000 ML IV SCH ×2 (15:35→18:20)
[2023-06-05 16:11] LABS: BASO % 0.5 % (0.0-1.0); EOS # 0.3 10*3/uL (0.0-0.4); EOS % 3.8 % (1.0-4.0); HEMATOCRIT 35.8 % (42.0-52.0); LYMPH # 1.9 10*3/uL (1.3-4.4); LYMPH % 23.1 % (27.0-41.0); MEAN CELL VOLUME 94.5 fl (80.0-94.0); MEAN CORPUSCULAR HGB CONC 30.7 g/dl (33.0-37.0); MONO # 0.8 10*3/uL (0.1-1.0); MONO % 10.3 % (3.0-9.0); NEUT % 61.6 % (47.0-73.0); PLATELET COUNT AUTOMATED 196 10*3/uL (130-400); RED BLOOD COUNT 3.79 10*6/uL (4.50-5.90); RED CELL DISTRI WIDTH 15.4 % (0-14.5); WHITE BLOOD COUNT 8.2 10*3/uL (4.8-10.8)
[2023-06-05 16:22] LABS: ACT PARTIAL THROMBO TIME 33.6 SECONDS (20.0-32.1)
[2023-06-05] MEDS ORDERED: Ceftriaxone Sodium 1 GM/10 ML SYR IV ONE (16:25)
[2023-06-05] MEDS ORDERED: Vancomycin Hydrochloride 250 ML IV ONE (16:25)
[2023-06-05 16:36] LABS: POTASSIUM 3.9 mmol/L (3.4-5.1); TOTAL PROTEIN 5.9 gm/dL (6.0-8.0)
[2023-06-05] MEDS ORDERED: LEVOFLOXACIN 150 ML IV ONE (17:00)
[2023-06-05] MEDS ORDERED: Acetaminophen/Hydrocodone 5 MG/325 MG TABLET PO PRN (18:15)
[2023-06-05] MEDS ORDERED: Magnesium Hydroxide 30 ML UDC PO PRN (18:15)
[2023-06-05] MEDS ORDERED: BISACODYL 10 MG SUPP R PRN (18:15)
[2023-06-05] MEDS ORDERED: Ondansetron Hydrochloride 4 MG/2 ML VIAL IV PRN (18:15)
[2023-06-05] MEDS ORDERED: BISACODYL 5 MG TAB PO PRN (18:15)
[2023-06-05] MEDS ORDERED: Pantoprazole Sodium 40 MG TAB PO PRN (18:20)
[2023-06-05] MEDS ORDERED: NOREPINEPHRINE BITARTRATE/D5W 250 ML IV SCH (18:25)
[2023-06-05] MEDS ORDERED: VANCOMYCIN/WATER FOR INJ (PEG) 350 ML IV SCH ×2 (18:45→20:00)
[2023-06-05] MEDS ORDERED: Piperacillin Sodium/Tazobact 4.5 GM in SODIUM CHLORIDE 0.9% 100 ML IV ONE (18:45)
[2023-06-05] MEDS ORDERED: Albuterol Sulf/Ipratropium 3 ML VIAL NEB PRN (18:50)
[2023-06-05] MEDS ORDERED: RIVAROXABAN 20 MG TAB PO SCH (18:55)
[2023-06-05] MEDS ORDERED: MORPHINE Sulfate 2 MG/ML SYR IV PRN (19:20)
[2023-06-05] MEDS ORDERED: methylPREDNISolone sod succ 125 MG VIAL IV ONE (19:35)
[2023-06-05] MEDS ORDERED: Albuterol Sulf/Ipratropium 3 ML VIAL NEB SCH (19:40)
[2023-06-05] MEDS ORDERED: SODIUM CHLORIDE 0.9% 1,000 ML IV ONE (20:07)
[2023-06-05 21:07] LABS: BILIRUBIN 1+ (Negative); BLOOD Negative (Negative); CLARITY Cloudy (Clear); COLOR Dark Yellow (Yellow); GLUCOSE Negative (Negative); KETONE Trace (Negative); LEUKO ESTERASE 1+ (Negative); NITRITE Negative (Negative)
[2023-06-05 21:23] LABS: BACTERIA 2+; MUCOUS 1+; YEAST 4+
[2023-06-05] MEDS ORDERED: HEPARIN SODIUM 5,000 UNIT/ML VIAL SC SCH (22:00)
[2023-06-05] MEDS ORDERED: GUAIFENESIN 600 MG TAB ER PO SCH ×2 (22:00)
[2023-06-05] MEDS ORDERED: TEMAZEPAM 15 MG CAP PO PRN (22:00)
[2023-06-06] VITALS (65 sets, daily range): BP systolic 83–137; BP diastolic 43–100
[2023-06-06] MEDS ORDERED: Piperacillin Sodium/Tazobact 4.5 GM in SODIUM CHLORIDE 0.9% 100 ML IV SCH
[2023-06-06 01:31] LABS: ABG BASE EXCESS -3.7 mmol/L (-2.0-2.0); ARTERIAL BLOOD GAS PH 7.365 (7.35-7.45)
[2023-06-06 05:37] LABS: FREE T4 0.51 ng/dl (0.89-1.76); POTASSIUM 4.3 mmol/L (3.4-5.1)
[2023-06-06 06:07] LABS: BASO % 0.2 % (0.0-1.0); EOS % 0.2 % (1.0-4.0); HEMATOCRIT 36.7 % (42.0-52.0); LYMPH # 0.5 10*3/uL (1.3-4.4); LYMPH % 8.4 % (27.0-41.0); MEAN CELL VOLUME 95.8 fl (80.0-94.0); MEAN CORPUSCULAR HGB 28.7 pg (27.0-31.0); MONO # 0.4 10*3/uL (0.1-1.0); MONO % 6.3 % (3.0-9.0); NEUT # 5.4 10*3/uL (2.3-7.9); NEUT % 83.5 % (47.0-73.0); PLATELET COUNT AUTOMATED 163 10*3/uL (130-400); RED BLOOD COUNT 3.83 10*6/uL (4.50-5.90); RED CELL DISTRI WIDTH 15.2 % (0-14.5); WHITE BLOOD COUNT 6.4 10*3/uL (4.8-10.8)
[2023-06-06] MEDS ORDERED: LORazepam 0.5 MG TAB PO PRN (07:30)
[2023-06-06] MEDS ORDERED: Oxybutynin Chloride 5 MG TAB PO SCH (07:39)
[2023-06-06] MEDS ORDERED: DIVALPROEX SODIUM 125 MG TAB PO SCH (07:41)
[2023-06-06] MEDS ORDERED: Venlafaxine Hydrochloride 75 MG CAP PO SCH (10:00)
[2023-06-06] MEDS ORDERED: SODIUM CHLORIDE 0.9% IV SCH ×2 (10:00→13:00)
[2023-06-06] MEDS ORDERED: Rivastigmine Tartrate 9.5 MG/24 HR PATCH T SCH (10:00)
[2023-06-06] MEDS ORDERED: buPROPion XL 150 MG TAB PO SCH (10:00)
[2023-06-06] MEDS ORDERED: MULTIVITAMIN 1 TAB TAB PO SCH (10:00)
[2023-06-06] MEDS ORDERED: ASPIRIN ENTERIC COATED 81 MG TAB PO SCH (10:00)
[2023-06-06] MEDS ORDERED: Clopidogrel Hydrogen Sulfate 75 MG TAB PO SCH (10:00)
[2023-06-06] MEDS ORDERED: Carbidopa/Levodopa 25/100MG 1 TAB TAB PO SCH (10:00)
[2023-06-06] MEDS ORDERED: Tamsulosin Hydrochloride 0.4 MG CAP PO SCH (10:00)
[2023-06-06] MEDS ORDERED: DAPTOMYCIN IV SCH ×3 (10:00→13:00)
[2023-06-06] MEDS ORDERED: Vitamin D 1,000 IU TAB (25 MCG) PO SCH (10:00)
[2023-06-06] MEDS ORDERED: ENTACAPONE 200 MG TAB PO SCH (10:00)
[2023-06-06] MEDS ORDERED: AMMONIUM LACTATE 12% LOTION T SCH (10:00)
[2023-06-06] MEDS ORDERED: methylPREDNISolone sod succ 40 MG VIAL IV SCH (10:00)
[2023-06-06] MEDS ORDERED: FOAM BANDAGE 1 EACH BANDAGE T ONE (12:36)
[2023-06-06] MEDS ORDERED: CHAIR CUSHION DEVICE ONE (12:36)
[2023-06-06] MEDS ORDERED: FOAM BANDAGE 4X4 T ONE (12:36)
[2023-06-06] MEDS ORDERED: HEEL PROTECTOR DEVICE ONE (12:36)
[2023-06-06] MEDS ORDERED: PREGABALIN 50 MG CAP PO SCH (14:00)
[2023-06-06] MEDS ORDERED: MED. FROM HOME 1 EACH EA PO SCH (14:26)
[2023-06-06] MEDS ORDERED: SIMVASTATIN 20 MG TAB PO SCH (22:00)
[2023-06-07] VITALS (9 sets, daily range): BP systolic 96–125; BP diastolic 48–68
[2023-06-07 04:56] LABS: ALKALINE PHOSPHATASE 80 U/L (46-116); BUN 22 mg/dl (9-23); CHLORIDE 107 mmol/L (98-107); FREE T4 0.42 ng/dl (0.89-1.76); POTASSIUM 3.6 mmol/L (3.4-5.1); SGPT/ALT 10 U/L (5-49); TOTAL PROTEIN 5.6 gm/dL (6.0-8.0)
[2023-06-07 06:00] LABS: BASO % 0.6 % (0.0-1.0); EOS # 0.1 10*3/uL (0.0-0.4); EOS % 1.4 % (1.0-4.0); HEMATOCRIT 31.8 % (42.0-52.0); LYMPH # 0.9 10*3/uL (1.3-4.4); LYMPH % 17.6 % (27.0-41.0); MEAN CELL VOLUME 95.5 fl (80.0-94.0); MEAN CORPUSCULAR HGB 29.1 pg (27.0-31.0); MEAN CORPUSCULAR HGB CONC 30.5 g/dl (33.0-37.0); MEAN PLATELET VOLUME 11.7 fl (9.6-12.3); MONO # 0.5 10*3/uL (0.1-1.0); MONO % 10.8 % (3.0-9.0); NEUT # 3.4 10*3/uL (2.3-7.9); PLATELET COUNT AUTOMATED 144 10*3/uL (130-400); RED BLOOD COUNT 3.33 10*6/uL (4.50-5.90); RED CELL DISTRI WIDTH 15.1 % (0-14.5); WHITE BLOOD COUNT 4.9 10*3/uL (4.8-10.8)
[2023-06-07 17:21] LABS: EOS % 0.3 % (1.0-4.0); HEMATOCRIT 31.9 % (42.0-52.0); LYMPH # 0.5 10*3/uL (1.3-4.4); LYMPH % 11.8 % (27.0-41.0); MEAN CELL VOLUME 94.9 fl (80.0-94.0); MEAN CORPUSCULAR HGB 29.5 pg (27.0-31.0); MEAN PLATELET VOLUME 11.4 fl (9.6-12.3); MONO # 0.2 10*3/uL (0.1-1.0); MONO % 4.9 % (3.0-9.0); NEUT # 3.2 10*3/uL (2.3-7.9); NEUT % 81.5 % (47.0-73.0); PLATELET COUNT AUTOMATED 165 10*3/uL (130-400); RED BLOOD COUNT 3.36 10*6/uL (4.50-5.90); RED CELL DISTRI WIDTH 14.8 % (0-14.5); WHITE BLOOD COUNT 3.9 10*3/uL (4.8-10.8)
[2023-06-07 17:28] LABS: ALKALINE PHOSPHATASE 87 U/L (46-116); BUN 20 mg/dl (9-23); CHLORIDE 104 mmol/L (98-107); POTASSIUM 3.7 mmol/L (3.4-5.1); SGPT/ALT 11 U/L (5-49); TOTAL PROTEIN 5.9 gm/dL (6.0-8.0)
[2023-06-07] MEDS ORDERED: FUROSEMIDE 40 MG/4 ML VIAL IV ONE (17:30)
[2023-06-07 17:31] LABS: ABG BASE EXCESS -2.7 mmol/L (-2.0-2.0); ARTERIAL BLOOD GAS PH 7.392 (7.35-7.45)
[2023-06-07] MEDS ORDERED: Midazolam Hydrochloride 2 MG/2 ML VIAL IV ONE ×2 (20:55→22:10)
[2023-06-07] MEDS ORDERED: diphenhydrAMINE hydrochloride 50 MG/ML VIAL IV ONE (22:10)
[2023-06-08] VITALS: BP 109/62
[2023-06-08 06:23] LABS: BASO % 0.8 % (0.0-1.0); EOS # 0.1 10*3/uL (0.0-0.4); EOS % 2.2 % (1.0-4.0); HEMATOCRIT 32.4 % (42.0-52.0); LYMPH % 19.7 % (27.0-41.0); MEAN CELL VOLUME 93.4 fl (80.0-94.0); MEAN CORPUSCULAR HGB 29.1 pg (27.0-31.0); MEAN CORPUSCULAR HGB CONC 31.2 g/dl (33.0-37.0); MEAN PLATELET VOLUME 11.1 fl (9.6-12.3); MONO # 0.7 10*3/uL (0.1-1.0); MONO % 14.2 % (3.0-9.0); NEUT # 3.1 10*3/uL (2.3-7.9); NEUT % 60.3 % (47.0-73.0); PLATELET COUNT AUTOMATED 182 10*3/uL (130-400); RED BLOOD COUNT 3.47 10*6/uL (4.50-5.90); RED CELL DISTRI WIDTH 14.9 % (0-14.5); WHITE BLOOD COUNT 5.1 10*3/uL (4.8-10.8)
[2023-06-08 06:31] LABS: BUN 18 mg/dl (9-23); CHLORIDE 104 mmol/L (98-107); POTASSIUM 3.8 mmol/L (3.4-5.1)
[2023-06-08 08:00] VITALS: BP 107/56
[2023-06-08 12:00] VITALS: BP 112/61
[2023-06-08 16:00] VITALS: BP 116/64
[2023-06-08] MEDS ORDERED: Polyethylene Glycol 15 ML BOT OPH PRN (16:25)
[2023-06-08 20:00] VITALS: BP 116/85
[2023-06-09] VITALS: BP 122/76
[2023-06-09 04:25] LABS: HEMATOCRIT 33.9 % (42.0-52.0); MEAN CELL VOLUME 92.9 fl (80.0-94.0); MEAN CORPUSCULAR HGB CONC 31.3 g/dl (33.0-37.0); MEAN PLATELET VOLUME 11.2 fl (9.6-12.3); PLATELET COUNT AUTOMATED 186 10*3/uL (130-400); RED BLOOD COUNT 3.65 10*6/uL (4.50-5.90); RED CELL DISTRI WIDTH 15.2 % (0-14.5); WHITE BLOOD COUNT 5.1 10*3/uL (4.8-10.8)
[2023-06-09 04:31] LABS: MANUAL DIFF REFLEX YES
[2023-06-09 04:45] LABS: BUN 17 mg/dl (9-23); CHLORIDE 105 mmol/L (98-107); POTASSIUM 3.4 mmol/L (3.4-5.1)
[2023-06-09 04:52] LABS: PLATELET SUFFICIENCY NORMAL (NORMAL); TOTAL CELLS COUNTED 100 #CELLS
[2023-06-09 08:00] VITALS: BP 128/71
[2023-06-09] MEDS ORDERED: methylPREDNISolone sod succ 40 MG VIAL IV SCH (10:00)
[2023-06-09 12:00] VITALS: BP 107/62
[2023-06-09 16:00] VITALS: BP 129/76
[2023-06-09 20:00] VITALS: BP 124/69
[2023-06-10] VITALS: BP 133/80
[2023-06-10 05:57] LABS: BASO % 0.6 % (0.0-1.0); EOS # 0.2 10*3/uL (0.0-0.4); EOS % 3.1 % (1.0-4.0); HEMATOCRIT 31.8 % (42.0-52.0); LYMPH # 1.3 10*3/uL (1.3-4.4); LYMPH % 21.1 % (27.0-41.0); MEAN CELL VOLUME 92.7 fl (80.0-94.0); MEAN CORPUSCULAR HGB 28.9 pg (27.0-31.0); MEAN CORPUSCULAR HGB CONC 31.1 g/dl (33.0-37.0); MONO # 0.7 10*3/uL (0.1-1.0); MONO % 10.7 % (3.0-9.0); NEUT # 3.8 10*3/uL (2.3-7.9); NEUT % 62.1 % (47.0-73.0); PLATELET COUNT AUTOMATED 174 10*3/uL (130-400); RED BLOOD COUNT 3.43 10*6/uL (4.50-5.90); RED CELL DISTRI WIDTH 14.9 % (0-14.5); WHITE BLOOD COUNT 6.2 10*3/uL (4.8-10.8)
[2023-06-10 06:29] LABS: BUN 15 mg/dl (9-23); CHLORIDE 104 mmol/L (98-107); POTASSIUM 3.5 mmol/L (3.4-5.1)
[2023-06-10] MEDS ORDERED: MAGNESIUM SULFATE 50 ML IV ONE (07:35)
[2023-06-10 08:00] VITALS: BP 124/70
[2023-06-10 12:00] VITALS: BP 119/65
[2023-06-10 16:00] VITALS: BP 122/67
[2023-06-10 20:00] VITALS: BP 112/76
[2023-06-10] MEDS ORDERED: DIAZEPAM 10 MG/2 ML SYR IV ONE (21:00)
[2023-06-11] VITALS: BP 123/73
[2023-06-11 06:44] LABS: BUN 11 mg/dl (9-23); CHLORIDE 109 mmol/L (98-107); POTASSIUM 3.4 mmol/L (3.4-5.1)
[2023-06-11 06:49] LABS: HEMATOCRIT 33.4 % (42.0-52.0); MEAN CORPUSCULAR HGB 29.2 pg (27.0-31.0); MEAN CORPUSCULAR HGB CONC 31.4 g/dl (33.0-37.0); PLATELET COUNT AUTOMATED 153 10*3/uL (130-400); RED BLOOD COUNT 3.59 10*6/uL (4.50-5.90); RED CELL DISTRI WIDTH 15.1 % (0-14.5); WHITE BLOOD COUNT 4.9 10*3/uL (4.8-10.8)
[2023-06-11 06:52] LABS: MANUAL DIFF REFLEX YES
[2023-06-11 07:39] VITALS: BP 120/75
[2023-06-11 07:54] LABS: TOTAL CELLS COUNTED 100 #CELLS
[2023-06-11 07:55] LABS: BURR CELLS FEW; OVALOCYTES FEW; PLATELET SUFFICIENCY NORMAL (NORMAL); POLYCHROMASIA SLIGHT; ROULEAUX SLIGHT; SCHISTOCYTES FEW
[2023-06-11] MEDS ORDERED: FOAM BANDAGE 6X6 T ONE (08:48)
[2023-06-11] MEDS ORDERED: ALGINATE DRESSING/CME-CELL 1 EACH BANDAGE T ONE (08:48)
[2023-06-11] MEDS ORDERED: FOAM BANDAGE 5X5 T ONE ×2 (08:48→09:19)
[2023-06-11] MEDS ORDERED: BARIUM SULFATE 98% 340 GM BOT PO ONE ×2 (09:40→10:09)
[2023-06-11 12:00] VITALS: BP 98/50
[2023-06-11 16:00] VITALS: BP 134/70
[2023-06-12] VITALS: BP 109/64
[2023-06-12 06:06] LABS: BUN 16 mg/dl (9-23); CHLORIDE 110 mmol/L (98-107); POTASSIUM 3.3 mmol/L (3.4-5.1)
[2023-06-12 06:08] LABS: HEMATOCRIT 31.9 % (42.0-52.0); MEAN CELL VOLUME 93.8 fl (80.0-94.0); MEAN CORPUSCULAR HGB 28.5 pg (27.0-31.0); MEAN CORPUSCULAR HGB CONC 30.4 g/dl (33.0-37.0); MEAN PLATELET VOLUME 11.4 fl (9.6-12.3); PLATELET COUNT AUTOMATED 170 10*3/uL (130-400); RED CELL DISTRI WIDTH 15.6 % (0-14.5); WHITE BLOOD COUNT 5.5 10*3/uL (4.8-10.8)
[2023-06-12 06:21] LABS: MANUAL DIFF REFLEX YES
[2023-06-12 07:39] LABS: BASOPHILS 1 % (0-1); TOTAL CELLS COUNTED 100 #CELLS
[2023-06-12 07:40] LABS: PLATELET SUFFICIENCY NORMAL (NORMAL)
[2023-06-12 08:00] VITALS: BP 129/73
[2023-06-12] MEDS ORDERED: POTASSIUM CHLORIDE 20 MEQ TAB PO ONE (08:05)
[2023-06-12 12:00] VITALS: BP 112/59
[2023-06-12 16:00] VITALS: BP 114/62
[2023-06-12 20:00] VITALS: BP 112/62
[2023-06-13] VITALS: BP 95/56
[2023-06-13 06:19] LABS: HEMATOCRIT 28.6 % (42.0-52.0); MEAN CELL VOLUME 93.2 fl (80.0-94.0); MEAN CORPUSCULAR HGB 29.3 pg (27.0-31.0); MEAN CORPUSCULAR HGB CONC 31.5 g/dl (33.0-37.0); MEAN PLATELET VOLUME 11.7 fl (9.6-12.3); RED BLOOD COUNT 3.07 10*6/uL (4.50-5.90); RED CELL DISTRI WIDTH 15.8 % (0-14.5); WHITE BLOOD COUNT 11.1 10*3/uL (4.8-10.8)
[2023-06-13 06:23] LABS: MANUAL DIFF REFLEX YES; PLATELET COUNT AUTOMATED 236 10*3/uL (130-400)
[2023-06-13 06:36] LABS: CHLORIDE 111 mmol/L (98-107); POTASSIUM 3.8 mmol/L (3.4-5.1)
[2023-06-13 06:48] LABS: BUN 53 mg/dl (9-23)
[2023-06-13 07:25] LABS: BASOPHILS 1 % (0-1); BURR CELLS FEW; OVALOCYTES FEW; PLATELET SUFFICIENCY NORMAL (NORMAL); POLYCHROMASIA SLIGHT; TOTAL CELLS COUNTED 100 #CELLS; TOXIC GRANULATION SLIGHT
[2023-06-13 07:26] LABS: ROULEAUX SLIGHT
[2023-06-13 08:00] VITALS: BP 94/58
[2023-06-13] MEDS ORDERED: SODIUM CHLORIDE 0.9% 500 ML IV ONE (09:25)
[2023-06-13 10:04] LABS: HEMATOCRIT 26.7 % (42.0-52.0); MEAN CELL VOLUME 93.4 fl (80.0-94.0); MEAN CORPUSCULAR HGB 29.4 pg (27.0-31.0); MEAN CORPUSCULAR HGB CONC 31.5 g/dl (33.0-37.0); MEAN PLATELET VOLUME 11.4 fl (9.6-12.3); NUCLEATED RED BLOOD CELL 0.3 % (0.0-0.0); PLATELET COUNT AUTOMATED 288 10*3/uL (130-400); RED BLOOD COUNT 2.86 10*6/uL (4.50-5.90); RED CELL DISTRI WIDTH 15.8 % (0-14.5); WHITE BLOOD COUNT 15.7 10*3/uL (4.8-10.8)
[2023-06-13 10:12] LABS: MANUAL DIFF REFLEX YES
[2023-06-13 10:24] LABS: ALKALINE PHOSPHATASE 86 U/L (46-116); BUN 58 mg/dl (9-23); CHLORIDE 112 mmol/L (98-107); POTASSIUM 3.6 mmol/L (3.4-5.1); SGPT/ALT 89 U/L (5-49); TOTAL PROTEIN 5.2 gm/dL (6.0-8.0)
[2023-06-13 10:41] LABS: BURR CELLS FEW; OVALOCYTES FEW; PLATELET SUFFICIENCY NORMAL (NORMAL); POLYCHROMASIA SLIGHT; ROULEAUX SLIGHT; TOTAL CELLS COUNTED 100 #CELLS; TOXIC GRANULATION SLIGHT
[2023-06-13 10:42] LABS: BILIRUBIN Negative (Negative); BLOOD 1+ (Negative); CLARITY Clear (Clear); COLOR Yellow (Yellow); GLUCOSE Negative (Negative); KETONE Negative (Negative); LEUKO ESTERASE 1+ (Negative); NITRITE Negative (Negative); PH 5.5 (4.5-8.0)
[2023-06-13 10:53] LABS: BACTERIA 2+; CALCIUM OXALATE CRYSTALS Trace; FINE GRANULAR CAST 0-2; HYALINE CAST TNTC; RBC TNTC rbc/hpf (0-2); WBC 21-30 wbc/hpf (0-5)
[2023-06-13] MEDS ORDERED: SODIUM CHLORIDE 0.9% 1,000 ML IV ONE (11:35)
[2023-06-13 12:00] VITALS: BP 80/48
[2023-06-13 13:49] VITALS: BP 100/58
[2023-06-13 16:00] VITALS: BP 125/63
== END 2023-06-13 17:41 | disposition hospice, inpatient (51) | DRG 871 ==
LOC: ED 14:48 → ICCU 17:16 → EDHOLD 17:16 → ICCU 22:43 → 4E 06-11 14:38
PROVIDERS: Emergency Medicine; Family Medicine; Internal Medicine; Internal Medicine Critical Care Medicine; Student in an Organized Health Care Education/Training Program; ADMIT Internal Medicine; ATTEND Internal Medicine
PROC: 5A09357 Assistance with Respiratory Ventilation, Less than 24 Consecutive Hours, Continuous Positive Airway Pressure (ICD-10-PCS; principal; 2023-06-06)
DX: A41.9 Sepsis, unspecified organism (principal); E43 Unspecified severe protein-calorie malnutrition; J69.0 Pneumonitis due to inhalation of food and vomit; J96.01 Acute respiratory failure with hypoxia; N17.0 Acute kidney failure with tubular necrosis; R65.21 Severe sepsis with septic shock; I13.0 Hypertensive heart and chronic kidney disease with heart failure and stage 1 through stage 4 chronic kidney disease, or unspecified chronic kidney disease; J44.1 Chronic obstructive pulmonary disease with (acute) exacerbation; E87.20 Acidosis, unspecified; I50.32 Chronic diastolic (congestive) heart failure; Z66 Do not resuscitate; L89.326 Pressure-induced deep tissue damage of left buttock; R73.9 Hyperglycemia, unspecified; E77.8 Other disorders of glycoprotein metabolism; I25.10 Atherosclerotic heart disease of native coronary artery without angina pectoris; N18.30 Chronic kidney disease, stage 3 unspecified; Z96.643 Presence of artificial hip joint, bilateral; L89.316 Pressure-induced deep tissue damage of right buttock; Z51.5 Encounter for palliative care; D53.9 Nutritional anemia, unspecified; G20.B1 Parkinson's disease with dyskinesia, without mention of fluctuations; G47.33 Obstructive sleep apnea (adult) (pediatric); E78.5 Hyperlipidemia, unspecified; I73.9 Peripheral vascular disease, unspecified; F51.04 Psychophysiologic insomnia; E66.01 Morbid (severe) obesity due to excess calories; N32.81 Overactive bladder; N40.0 Benign prostatic hyperplasia without lower urinary tract symptoms; Z68.31 Body mass index [BMI] 31.0-31.9, adult; Z88.2 Allergy status to sulfonamides; Z88.8 Allergy status to other drugs, medicaments and biological substances; Z79.899 Other long term (current) drug therapy; Z87.891 Personal history of nicotine dependence; Z82.49 Family history of ischemic heart disease and other diseases of the circulatory system; Z79.82 Long term (current) use of aspirin; Z79.1 Long term (current) use of non-steroidal anti-inflammatories (NSAID)

== ENCOUNTER 2023-06-13 17:41 | Inpatient (IN) | payer OTHER ==
[~2023-06-13] VITALS: Ht 193 cm; Wt 118.7 kg
[~2023-06-13 17:41] MED LIST changes: +DAPTOMYCIN1000 MG/10 IV; +DEPAKOTE125 M1 PO; +FOAM BANDAGE 1 EACH BANDAGE T ONE; +SENNA PLUS 8.61 EACH PO
[2023-06-13 20:00] VITALS: BP 95/64
[2023-06-13] MEDS ORDERED: MORPHINE Sulfate 2 MG/ML SYR IV PRN (23:40)
[2023-06-13 23:44] VITALS: BP 84/40
[2023-06-13] MEDS ORDERED: LORazepam 1 MG TAB PO PRN (23:45)
[2023-06-13] MEDS ORDERED: MORPHINE Sulfate 5 MG IV PRN (23:45)
[2023-06-13] MEDS ORDERED: ATROPINE SULFATE 1% 2 ML BOTTLE SL PRN (23:50)
[2023-06-14] MEDS ORDERED: MORPHINE Sulfate 2 MG/ML SYR IV PRN (00:45)
[2023-06-14] MEDS ORDERED: MORPHINE SULFATE IV SCH (01:27)
[2023-06-14] MEDS ORDERED: MORPHINE IV SCH (02:20)
[2023-06-14] MEDS ORDERED: MORPHINE Sulfate 50 MG in SODIUM CHLORIDE 0.9% 45 ML IV SCH (02:30)
[2023-06-14 08:00] VITALS: BP 88/42
[2023-06-14] MEDS ORDERED: SODIUM CHLORIDE 0.9% 50 ML BAG IV ONE (10:14)
[2023-06-14] MEDS ORDERED: MORPHINE SULFATE 10 MG/1 ML IV ONE (10:14)
== END 2023-06-14 19:17 | DRG 871 ==
LOC: 4E 17:41
PROVIDERS: ADMIT Internal Medicine; ATTEND Internal Medicine
DX: A41.9 Sepsis, unspecified organism (principal); E43 Unspecified severe protein-calorie malnutrition; N17.0 Acute kidney failure with tubular necrosis; R65.21 Severe sepsis with septic shock; J69.0 Pneumonitis due to inhalation of food and vomit; E87.20 Acidosis, unspecified; J44.1 Chronic obstructive pulmonary disease with (acute) exacerbation; I50.30 Unspecified diastolic (congestive) heart failure; I13.0 Hypertensive heart and chronic kidney disease with heart failure and stage 1 through stage 4 chronic kidney disease, or unspecified chronic kidney disease; Z68.42 Body mass index [BMI] 45.0-49.9, adult; D53.9 Nutritional anemia, unspecified; Z20.822 Contact with and (suspected) exposure to COVID-19; Z66 Do not resuscitate; R73.9 Hyperglycemia, unspecified; E77.8 Other disorders of glycoprotein metabolism; B95.62 Methicillin resistant Staphylococcus aureus infection as the cause of diseases classified elsewhere; G20.A1 Parkinson's disease without dyskinesia, without mention of fluctuations; I10 Essential (primary) hypertension; F32.A Depression, unspecified; N18.30 Chronic kidney disease, stage 3 unspecified; G62.9 Polyneuropathy, unspecified; K57.30 Diverticulosis of large intestine without perforation or abscess without bleeding; E53.8 Deficiency of other specified B group vitamins; G47.33 Obstructive sleep apnea (adult) (pediatric); E55.9 Vitamin D deficiency, unspecified; J44.9 Chronic obstructive pulmonary disease, unspecified; N32.81 Overactive bladder; E78.5 Hyperlipidemia, unspecified; I73.9 Peripheral vascular disease, unspecified; E66.01 Morbid (severe) obesity due to excess calories; F03.90 Unspecified dementia, unspecified severity, without behavioral disturbance, psychotic disturbance, mood disturbance, and anxiety; H54.40 Blindness, one eye, unspecified eye; N40.0 Benign prostatic hyperplasia without lower urinary tract symptoms; Z51.5 Encounter for palliative care